=== PATIENT | female | born 1970 | race Caucasian/White ===

== ENCOUNTER 2021-09-23 13:57 | Outpatient (REF) | payer OTHER, SELFPAY ==
--- NOTE | ~2021-09-23 | XR_ITS ---
EXAMINATION: XR CHEST CLINICAL INFORMATION: SOB. History of Covid. COMPARISON: None TECHNIQUE: 2 views of the chest were obtained. FINDINGS: No significant abnormality is noted involving the heart, lungs, mediastinum, bony thorax or soft tissues. XR/XR chest 2V IMPRESSION: Unremarkable chest examination.
[2021-09-23 14:43] LABS: MANUAL DIFF FLAG NO
[2021-09-23 15:07] LABS: Basophils Absolute Auto 0.1 X10*3/uL (0.0-0.2); Basophils Percent Auto 0.7 % (0-2); Eosinophils Absolute Auto 0.2 X10*3/uL (0.0-0.4); Eosinophils Percent Auto 3.3 % (0-4); Imm Gran Abs Auto 0.01 X10*3/uL (0.00-0.03); Imm Gran Pct Auto 0.1 % (0.0-0.4); Lymphocytes Absolute Auto 1.3 X10*3/uL (1.2-4.9); Lymphocytes Percent Auto 19.1 % (20-40); Mean Corpuscular HGB Conc 33.3 g/dl (31.0-35.0); Mean Corpuscular Hemoglobin 29.2 pg (27.0-33.0); Mean Corpuscular Volume 87.7 fL (80.0-98.0); Mean Platelet Volume 10.2 fL (9.4-12.3); Monocytes Absolute Auto 0.4 X10*3/uL (0.1-1.2); Monocytes Percent Auto 5.4 % (2-11); Neutrophils Absolute Auto 4.9 x10*3/uL (2.0-8.3); Neutrophils Percent Auto 71.4 % (45-73); Platelet Count 372 X10*3/uL (160-400); Red Blood Count 4.79 X10*6/uL (4.20-5.50); Red Cell Distribution Width 13.2 % (11.0-16.0); White Blood Count 6.9 X10*3/uL (4.8-10.8)
[2021-09-23 15:22] LABS: D Dimer High Sensitivity 230 NG/ML
[2021-09-23 15:34] LABS: Alanine Aminotransferase 70 U/L (0-31); Albumin Level 4.9 g/dL (3.5-5.0); Alkaline Phosphatase 133 U/L (39-117); Anion Gap 14 (12-20); Aspartate Amino Transferase 49 U/L (5-31); Bilirubin Total 0.4 mg/dL (0.0-1.0); Blood Urea Nitrogen 11 mg/dL (9-16); C Reactive Protein 0.91 mg/dL (< or = 0.50); Calcium 10.1 mg/dL (8.4-10.2); Carbon Dioxide 26 mmol/L (22-29); Chloride 104 mmol/L (96-108); Cholesterol 300 mg/dL; Estimated Glomerular Filt Rate > 60; Glucose Random 98 mg/dL (60-115); Iron 68 mcg/dL (30-160); Percent Iron Saturation 15 % (15-50); Potassium 4.8 mmol/L (3.3-5.1); Sodium 139 mmol/L (135-145); Total Iron Binding Capacity 451 mcg/dL (228-428); Total Protein 8.2 g/dL (6.5-8.0); Unsaturated Iron Binding 383 ug/dL
[2021-09-23 15:41] LABS: B Type Natriuretic Peptide < 10 pg/mL (<100)
[2021-09-23 15:58] LABS: Free T4 (Free Thyroxine) 0.78 ng/dL (0.71-1.85); Thyroid Stimulating Hormone 1.84 uIU/mL (0.32-4.0)
== END 2021-09-23 13:58 | disposition home or self-care (01) ==
LOC: HO.XRAY 13:57
PROVIDERS: PCP Internal Medicine; Visit Provider Internal Medicine
DX: E03.9 Hypothyroidism, unspecified (principal); D64.9 Anemia, unspecified; R06.02 Shortness of breath; Z86.16 Personal history of COVID-19
CPT/HCPCS: 36415; 71046; 80053; 82465; 83540; 83880; 84439; 84443; 85025; 85379; 86140

== ENCOUNTER 2022-09-28 11:54 | Outpatient (REF) | payer OTHER, SELFPAY ==
[2022-09-28 14:41] LABS: MANUAL DIFF FLAG NO
[2022-09-28 14:55] LABS: Basophils Absolute Auto 0.1 X10*3/uL (0.0-0.2); Basophils Percent Auto 0.7 % (0-2); Eosinophils Absolute Auto 0.2 X10*3/uL (0.0-0.4); Eosinophils Percent Auto 2.1 % (0-4); Hematocrit 42.8 % (37.0-47.0); Hemoglobin 14.3 g/dl (12.0-16.0); Imm Gran Abs Auto 0.02 X10*3/uL (0.00-0.03); Imm Gran Pct Auto 0.3 % (0.0-0.4); Lymphocytes Absolute Auto 1.2 X10*3/uL (1.2-4.9); Lymphocytes Percent Auto 16.9 % (20-40); Mean Corpuscular HGB Conc 33.4 g/dl (31.0-35.0); Mean Corpuscular Hemoglobin 29.1 pg (27.0-33.0); Mean Corpuscular Volume 87.2 fL (80.0-98.0); Mean Platelet Volume 10.3 fL (9.4-12.3); Monocytes Absolute Auto 0.5 X10*3/uL (0.1-1.2); Monocytes Percent Auto 6.5 % (2-11); Neutrophils Absolute Auto 5.2 x10*3/uL (2.0-8.3); Neutrophils Percent Auto 73.5 % (45-73); Platelet Count 334 X10*3/uL (160-400); Red Blood Count 4.91 X10*6/uL (4.20-5.50); Red Cell Distribution Width 13.2 % (11.0-16.0); White Blood Count 7.1 X10*3/uL (4.8-10.8)
[2022-09-28 15:16] LABS: Alanine Aminotransferase 44 U/L (0-31); Albumin Level 4.3 g/dL (3.5-5.0); Alkaline Phosphatase 116 U/L (39-117); Anion Gap 13 (12-20); Aspartate Amino Transferase 30 U/L (5-31); Bilirubin Total 0.4 mg/dL (0.0-1.0); Blood Urea Nitrogen 10 mg/dL (9-16); C Reactive Protein 0.64 mg/dL (< or = 0.50); Calcium 9.5 mg/dL (8.4-10.2); Carbon Dioxide 26 mmol/L (22-29); Chloride 107 mmol/L (96-108); Estimated Glomerular Filt Rate > 60; Glucose Random 78 mg/dL (60-115); Potassium 4.8 mmol/L (3.3-5.1); Sodium 141 mmol/L (135-145); Total Protein 7.1 g/dL (6.5-8.0)
[2022-09-28 15:32] LABS: Free T4 (Free Thyroxine) 0.93 ng/dL (0.71-1.85); Thyroid Stimulating Hormone 2.21 uIU/mL (0.32-4.0); Vitamin B12 642 pg/mL (200-900)
== END 2022-09-28 11:55 | disposition home or self-care (01) ==
LOC: HO.10HDL 11:54
PROVIDERS: Visit Provider Internal Medicine
DX: E03.9 Hypothyroidism, unspecified (principal); R20.2 Paresthesia of skin
CPT/HCPCS: 36415; 80053; 82550; 82607; 84439; 84443; 85025; 86140

== ENCOUNTER 2022-10-04 16:35 | Outpatient (REF) | payer OTHER, SELFPAY ==
--- NOTE | ~2022-10-04 | MR_ITS ---
EXAMINATION: MR BRAIN WITHOUT AND WITH CONTRAST CLINICAL INFORMATION: Paresthesias COMPARISON: MRI of the brain without contrast 01/23/2019 TECHNIQUE: Multiplanar multisequence MR imaging of the brain was obtained without and following the administration of 10 mL Gadavist intravenous contrast. FINDINGS: There is no acute infarct on diffusion-weighted imaging. There is no intracranial hemorrhage on iron-sensitive imaging. No extra-axial collection or mass effect/herniation. Normal parenchymal signal characteristics. No hydrocephalus. The ventricles are normal in morphology and size. No abnormal parenchymal or extra-axial enhancement. The major flow voids at the skull base are preserved. Incidentally noted persistent right trigeminal artery. The midline structures are normal. The cerebellar tonsils are normally positioned. The craniocervical junction is normal. Marrow signal is within normal limits. The visualized soft tissues are without significant abnormality. No signal abnormality within the paranasal sinuses or within the mastoid air cells. Small fluid in the pneumatized petrous apices. MR/MR head/brain wo/w con IMPRESSION: Unremarkable contrast enhanced MRI of the brain. .
== END 2022-10-04 16:36 | disposition home or self-care (01) ==
LOC: HO.MRI 16:35
PROVIDERS: PCP Internal Medicine; Visit Provider Internal Medicine
DX: R20.2 Paresthesia of skin (principal); R90.0 Intracranial space-occupying lesion found on diagnostic imaging of central nervous system
CPT/HCPCS: 70553; A9585

== ENCOUNTER 2023-03-01 11:02 | Outpatient (REF) | payer OTHER, SELFPAY ==
[2023-03-01 14:06] LABS: Free T4 (Free Thyroxine) 0.71 ng/dL (0.71-1.85); Thyroid Stimulating Hormone 3.35 uIU/mL (0.32-4.0)
== END 2023-03-01 11:03 | disposition home or self-care (01) ==
LOC: HO.10HDL 11:02
PROVIDERS: Visit Provider Internal Medicine
DX: E03.9 Hypothyroidism, unspecified (principal)
CPT/HCPCS: 36415; 84439; 84443

== ENCOUNTER 2023-03-08 23:06 | Emergency (ER) | payer OTHER, SELFPAY ==
--- NOTE | 2023-03-08 | ECG_ITS ---
Test Reason : Chest pain Blood Pressure : / mmHG Vent. Rate : 091 BPM Atrial Rate : 091 BPM P-R Int : 150 ms QRS Dur : 080 ms QT Int : 372 ms P-R-T Axes : 055 040 060 degrees QTc Int : 457 ms Normal sinus rhythm Normal ECG When compared with ECG of 23-JAN-2019 13:57, No significant change was found Referred By: Generic ED Physician Electronically Signed By:LEATHA REYNOLDS
--- NOTE | ~2023-03-08 | XR_ITS ---
EXAMINATION: XR CHEST CLINICAL INFORMATION: Chest pain. COMPARISON: Chest radiograph 09/23/2021. TECHNIQUE: Frontal view of the chest was obtained. FINDINGS: Stable appearance of the cardiomediastinal silhouette. No focal airspace opacity, pleural effusion or pneumothorax. No acute osseous findings. The visualized upper abdomen is within normal limits. XR/XR chest 1V IMPRESSION: No acute cardiopulmonary findings.
[2023-03-08 23:17] VITALS: BP 201/95; PULSE 96; RESP 18; TEMP 36.8; O2SAT 97; BMI 32.7
[2023-03-08 23:44] LABS: MANUAL DIFF FLAG NO
[2023-03-08 23:45] LABS: Basophils Percent Auto 0.5 % (0-2); Eosinophils Absolute Auto 0.3 X10*3/uL (0.0-0.4); Eosinophils Percent Auto 3.1 % (0-4); Hemoglobin 13.5 g/dl (12.0-16.0); Imm Gran Abs Auto 0.03 X10*3/uL (0.00-0.03); Imm Gran Pct Auto 0.4 % (0.0-0.4); Lymphocytes Percent Auto 23.5 % (20-40); Mean Corpuscular HGB Conc 33.8 g/dl (31.0-35.0); Mean Corpuscular Hemoglobin 28.9 pg (27.0-33.0); Mean Corpuscular Volume 85.7 fL (80.0-98.0); Mean Platelet Volume 9.9 fL (9.4-12.3); Monocytes Absolute Auto 0.5 X10*3/uL (0.1-1.2); Monocytes Percent Auto 5.9 % (2-11); Neutrophils Absolute Auto 5.5 x10*3/uL (2.0-8.3); Neutrophils Percent Auto 66.6 % (45-73); Platelet Count 308 X10*3/uL (160-400); Red Blood Count 4.67 X10*6/uL (4.20-5.50); Red Cell Distribution Width 13.4 % (11.0-16.0); White Blood Count 8.3 X10*3/uL (4.8-10.8)
[2023-03-08 23:57] VITALS: BP 170/90; PULSE 97; RESP 17; TEMP 36.8; O2SAT 96
[2023-03-08 23:59] LABS: Alanine Aminotransferase 49 U/L (0-31); Albumin Level 4.3 g/dL (3.5-5.0); Alkaline Phosphatase 124 U/L (39-117); Anion Gap 16 (12-20); Aspartate Amino Transferase 32 U/L (5-31); Bilirubin Total 0.3 mg/dL (0.0-1.0); Blood Urea Nitrogen 14 mg/dL (9-16); Calcium 10.1 mg/dL (8.4-10.2); Carbon Dioxide 20 mmol/L (22-29); Chloride 107 mmol/L (96-108); Creatinine Clr Calc Pharmacy 112.8; Estimated Glomerular Filt Rate > 60; Glucose Random 112 mg/dL (60-115); Potassium 3.9 mmol/L (3.3-5.1); Sodium 139 mmol/L (135-145); Total Protein 7.8 g/dL (6.5-8.0)
[2023-03-09 00:06] LABS: Troponin-I High Sensitivity < 2.7 ng/L (<3.5-17.0)
--- NOTE | 2023-03-09 01:14 | ED_ITS ---
HPI - Chest Pain General Chief Complaint: Chest Pain Stated Complaint: feels tightness in lungs, pain when breathing? Time Seen by Provider: 03/09/23 01:08 Source: patient Mode of arrival: ambulatory Limitations: no limitations History of Present Illness HPI narrative: Patient 52 years old with history of hypothyroidism and anxiety depression comes here for chest tightness feeling for last few months getting worse for last 2 days worse with exertion feels less elbow in her lungs today she was nauseated too, does have occasional cough , no shortness of breath no diaphoresis or nausea no vomiting Related Data Allergies Allergy/AdvReac Type Severity Reaction Status Date / Time No Known Allergies Allergy Unverified 04/23/20 16:34 [No Known Allergies*] Review of Systems Review of Systems: Yes all other systems are reviewed and are negative COUNTS INCLUDE 234 BEDS AT THE [facility] Past Medical History Attestation statement: The following information was validated with the patient. Social History Social History Alcohol intake: never Smoked in Last 30 Days: No Use of substances other than those prescribed or required for medical reasons: No Advance Directives: No Advance Directives Information Provided: No Physical Exam Vital Signs: Vital Signs: Last Vital Signs Temp 97.9 F 03/09/23 02:01 Pulse 74 03/09/23 02:01 Resp 17 03/09/23 02:01 BP 127/75 03/09/23 02:01 Pulse Ox 96 03/09/23 02:01 O2 Del Method Room Air 03/09/23 02:01 BMI result Body Mass Index 32.7 Appearance: Alert. Oriented X3. No acute distress. Eyes: PERRLA, No Nystagmus ENT: Pharynx normal. Oral Mucosa moist Neck: Normal inspection. Neck supple. CVS: Normal heart rate and rhythm. Pulses normal. Respiratory: No respiratory distress. Equal air entry bilateral, no wheezing/rales/rhonchi Abdomen: Soft and nontender. Bowel sounds are present, no mass palpable, no CVA tenderness Skin: Skin warm and dry. Normal skin color. Normal skin turgor. Extremities: No lower extremity edema. No calf tenderness Neuro: Oriented X 3. No motor deficit. No sensory deficit.No cerebellar signs , cranial nerves II-XII intact Medications Administered Discontinued Medications Generic Name Dose Route Start Last Admin Trade Name Freq PRN Reason Stop Dose Admin Aspirin 162 mg 03/09/23 01:28 03/09/23 02:06 Aspirin 81 Mg Tab.Chew PO 03/09/23 01:29 162 mg ONCE ONE Administration Medical Decision Making Medical Decision Making [facility] Narrative: Patient with atypical chest pain initial troponin EKG negative for acute will repeat troponin check D-dimer also Patient D-dimer and 2 sets of high sensitive troponin negative will discharge patient home advised to follow with material control manager for further evaluation including stress test Differential Diagnosis Differential Diagnoses: The differential diagnosis associated with the presentation includes ACS/unstable angina/PE Lab Data [facility] Lab Attestation statement: I reviewed the patient's lab results. 03/08/23 23:39 03/08/23 23:39 Labs: Lab Results 03/08/23 03/08/23 03/08/23 Range/Units 23:39 23:39 23:39 WBC 8.3 (4.8-10.8) X10*3/uL RBC 4.67 (4.20-5.50) X10*6/uL Hgb 13.5 (12.0-16.0) g/dl Hct 40.0 (37.0-47.0) % MCV 85.7 (80.0-98.0) fL MCH 28.9 (27.0-33.0) pg MCHC 33.8 (31.0-35.0) g/dl RDW 13.4 (11.0-16.0) % Plt Count 308 (160-400) X10*3/uL MPV 9.9 (9.4-12.3) fL Immature Gran % (Auto) 0.4 (0.0-0.4) % Neut % (Auto) 66.6 (45-73) % Lymph % (Auto) 23.5 (20-40) % Coffee % (Auto) 5.9 (2-11) % Eos % (Auto) 3.1 (0-4) % Baso % (Auto) 0.5 (0-2) % Lymph # (Auto) 2.0 (1.2-4.9) X10*3/uL Coffee # (Auto) 0.5 (0.1-1.2) X10*3/uL Eos # (Auto) 0.3 (0.0-0.4) X10*3/uL Baso # (Auto) 0.0 (0.0-0.2) X10*3/uL Abs Immat Gran (auto) 0.03 (0.00-0.03) X10*3/uL Absolute Neuts (auto) 5.5 (2.0-8.3) x10*3/uL Absolute Nucleated RBC 0.000 (0.0-0.012) X10*3/uL Nucleated RBC % (auto) 0.0 (0.0-0.2) /100WBC D-Dimer High Sensitivty NG/ML Sodium 139 (135-145) mmol/L Potassium 3.9 (3.3-5.1) mmol/L Chloride 107 (96-108) mmol/L Carbon Dioxide 20 L (22-29) mmol/L Anion Gap 16 (12-20) BUN 14 (9-16) mg/dL Creatinine 0.75 (0.5-1.4) mg/dL Estim Creat Clear Calc 112.8 Estimated GFR > 60 Random Glucose 112 (60-115) mg/dL Calcium 10.1 D (8.4-10.2) mg/dL Total Bilirubin 0.3 (0.0-1.0) mg/dL AST 32 H (5-31) U/L ALT 49 H (0-31) U/L Alkaline Phosphatase 124 H (39-117) U/L Troponin I High Sens < 2.7 (<3.5-17.0) ng/L Total Protein 7.8 (6.5-8.0) g/dL Albumin 4.3 (3.5-5.0) g/dL 03/09/23 03/09/23 Range/Units 01:49 01:49 WBC (4.8-10.8) X10*3/uL RBC (4.20-5.50) X10*6/uL Hgb (12.0-16.0) g/dl Hct (37.0-47.0) % MCV (80.0-98.0) fL MCH (27.0-33.0) pg MCHC (31.0-35.0) g/dl RDW (11.0-16.0) % Plt Count (160-400) X10*3/uL MPV (9.4-12.3) fL Immature Gran % (Auto) (0.0-0.4) % Neut % (Auto) (45-73) % Lymph % (Auto) (20-40) % Coffee % (Auto) (2-11) % Eos % (Auto) (0-4) % Baso % (Auto) (0-2) % Lymph # (Auto) (1.2-4.9) X10*3/uL Coffee # (Auto) (0.1-1.2) X10*3/uL Eos # (Auto) (0.0-0.4) X10*3/uL Baso # (Auto) (0.0-0.2) X10*3/uL Abs Immat Gran (auto) (0.00-0.03) X10*3/uL Absolute Neuts (auto) (2.0-8.3) x10*3/uL Absolute Nucleated RBC (0.0-0.012) X10*3/uL Nucleated RBC % (auto) (0.0-0.2) /100WBC D-Dimer High Sensitivty 178 NG/ML Sodium (135-145) mmol/L Potassium (3.3-5.1) mmol/L Chloride (96-108) mmol/L Carbon Dioxide (22-29) mmol/L Anion Gap (12-20) BUN (9-16) mg/dL Creatinine (0.5-1.4) mg/dL Estim Creat Clear Calc Estimated GFR Random Glucose (60-115) mg/dL Calcium (8.4-10.2) mg/dL Total Bilirubin (0.0-1.0) mg/dL AST (5-31) U/L ALT (0-31) U/L Alkaline Phosphatase (39-117) U/L Troponin I High Sens < 2.7 (<3.5-17.0) ng/L Total Protein (6.5-8.0) g/dL Albumin (3.5-5.0) g/dL Discharge Plan Discharge Clinical Impression: Chest pain Patient Disposition: Home, Self-Care Instructions: Chest Pain (ED) Additional Instructions: Cause of chest pain is not very clear your workup for the acute coronary syndrome is negative Follow-up with material control manager/PCP for further evaluation including stress test Take baby aspirin daily Report to the ER if worsening of the chest pain or change in character of the chest Referrals: Shashank Mary MD [Physician] - 1 week
[2023-03-09 02:01] VITALS: BP 127/75; PULSE 74; RESP 17; TEMP 36.6; O2SAT 96
[2023-03-09 02:01] LABS: D Dimer High Sensitivity 178 NG/ML
[2023-03-09] MEDS: Aspirin 81 MG TAB.CHEW 162 MG PO (02:06)
[2023-03-09 02:19] LABS: Troponin-I High Sensitivity < 2.7 ng/L (<3.5-17.0)
== END 2023-03-09 03:12 | disposition home or self-care (01) ==
PROVIDERS: Emergency Provider Internal Medicine; PCP Internal Medicine
DX: R07.89 Other chest pain (principal); F41.1 Generalized anxiety disorder; F43.0 Acute stress reaction; F33.1 Major depressive disorder, recurrent, moderate; Z79.899 Other long term (current) drug therapy
CPT/HCPCS: 36415; 71045; 80053; 84484; 85025; 85379; 93005; 99283; 99285

== ENCOUNTER → 2023-03-08 23:30 | Outpatient (BNV) | payer OTHER, SELFPAY | PROVIDERS: Emergency Provider Internal Medicine; PCP Internal Medicine; Visit Provider Internal Medicine | DX: R07.9 Chest pain, unspecified (principal) | CPT/HCPCS: 93010 ==

== ENCOUNTER → 2023-04-03 07:56 | Outpatient (REF) | payer OTHER, SELFPAY ==
--- NOTE | 2023-04-03 | CA_ITS ---
Acquisition Time: 2023-04-03 08:03:47 Total Exercise Time: 00:07:00 Test Indications: CHEST PAIN Medications: LEVOTHYROXINE FLUOXETINE Protocol: CANDACE Max HR: 160 BPM 95% of Pred: 167 BPM Max BP: 180/084 mmHG Max Work Load: 7.0 METS PT EXERCISED ON STD CANDACE PROTOCOLFOR 7 MIN THRU STAGE 2. MAX HR 160-95%MAX. PT HAD 2/10 CHEST DISCOMFORT AT START THAT WENT TO 5/10 AT [facility] EXERCISE. 2MM ST DEP IN II,III,F,V3-6. POSITIVE TEST SUSPICIOUS FOR ISCHEMIA. AWAIT SCAN REPORT. PLAN ON REFERRAL TO CARDIOLOGY. Referred By: Seymour Torre Overread By: PITA TORRE MD
--- NOTE | ~2023-04-03 | NM_ITS ---
EXERCISE MYOCARDIAL PERFUSION STUDY INDICATION: Chest pain TECHNIQUE: The patient was brought in for an exercise perfusion study on 04/03/2023. Patient performed exercise as per Evaristo protocol and was injected 30 mCi of sestamibi once target heart rate was achieved. Images were obtained using the SPECT gamma camera interlaced with the gating device. Images were obtained in supine position. Resting study not performed. Images were processed with the software and reviewed. FINDINGS: Raw images were reviewed. The stress perfusion study showed markedly diminished tracer uptake in the mid to distal anterior wall and adjacent apex. With CT attenuation correction no major change. The gated study shows low normal LV systolic function with calculated LVEF of 54%. LV cavity is normal in size. The gated study shows diminished contractility in the mid to distal anterior wall. Resting study not performed. The findings are consistent with severe perfusion defect in the mid to distal anterior wall and adjacent apex. NM/NM chinmay perf SPECT rest or str IMPRESSION: 1. Myocardial perfusion imaging study shows severe perfusion defect in the mid to distal anterior wall, adjacent apex. Cannot differentiate ischemia or infarction as resting not performed. 2. Gated LVEF is 54% during stress. EKG component of the test reported separately.
== END ==
LOC: HO.CARD 07:56
PROVIDERS: PCP Internal Medicine; Visit Provider Internal Medicine
DX: R07.9 Chest pain, unspecified (principal)
CPT/HCPCS: 78451; 93017; A9500

== ENCOUNTER 2023-04-05 12:47 | Outpatient (AMB) | payer OTHER, SELFPAY ==
--- NOTE | 2023-04-05 12:57 | MHC.OFFVIS ---
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 She is a 52-year-old female who recently presently emergency room after she does significant chest discomfort/pressure/tightness after walking at work. She was then evaluated emergency room. EKG at that time was normal and she will troponins were negative. Patient subsequently discharged and was followed up with you. Patient subsequently had a stress test 2 days ago which was abnormal with positive stress test with worsening chest pressure with exercise with [address]-depression in the 2nd stage of Evaristo protocol. Patient nuclear imaging but the results are still pending. Patient continues to have exertional chest discomfort with minimal exertion although also says she has mild chest pressure all the time. She is concerned about the symptoms as she has significant strong family history for premature coronary artery disease with her great grandmother dying of heart related issues in 30s and her father having CO at age 47. She denies any other significant symptoms. No nausea, vomiting, heart failure symptoms. No lightheadedness, syncope. PFSH Surgical History Hx of hysterectomy for benign disease Family History Father CAD (coronary artery disease) Mother Mitral valve prolapse Social History Alcohol intake: never Patient Tobacco Use Status: Never used Tobacco Review of Systems Const Denies chills, Denies daytime sleepiness, Denies fatigue, Denies fever(s), Denies frequent falls, Denies poor appetite, Denies snoring, Denies stops breathing during sleep, Denies weakness, Denies weight gain and Denies weight loss Eyes Denies loss of vision ENT Denies dizziness and Denies hearing loss Card Denies chest pain, Denies claudication, Denies leg edema, Denies lightheadedness, Denies palpitations, Denies dyspnea, Denies dyspnea on exertion and Denies orthopnea Resp Denies cough, Denies excessive phlegm production, Denies dyspnea, Denies dyspnea on exertion, Denies snoring and Denies wheezing GI Denies abdominal pain, Denies hematochezia, Denies change in bowel habits, Denies nausea and Denies vomiting Denies urinary frequency and Denies dysuria Musc Denies arthralgias, Denies muscle weakness, Denies numbness and Denies other (frequent falls) Skin/Breast Denies nail changes and Denies rash Neuro Denies Abnormal speech present, Denies dizziness, Denies frequent falls, Denies loss of vision, Denies memory loss, Denies numbness and Denies weakness Psych Denies depression and Denies memory loss Endo Denies fatigue and Denies palpitations Gerald/Lymph Reports easy bruising and Reports other (anemia) Aller/Immun Denies wheezing Physical Exam Vital Signs: Last Vital Signs Pulse 84 04/05/23 12:58 BP 110/74 04/05/23 12:58 BMI result Body Mass Index 31.9 Const General: cooperative, comfortable, no acute distress, well developed, alert, awake, Physically active and well groomed Nutritional Appearance: well nourished and obese Orientation/consciousness: patient oriented x3 Limitations: no limitations HEENT Head: Yes normocephalic and Yes atraumatic Neck Neck: Yes trachea midline, Yes supple and Yes no JVD Resp Effort & Inspection: normal respiratory effort Auscultation: clear to auscultation bilaterally Cardio Jugular venous distension: no JVD Palpation: normal PMI Rate: regular rate Rhythm: regular rhythm Heart sounds: S1 normal heart sound present, S2 normal heart sound present, no click, no gallops, no murmurs and no rubs GI Auscultation: normal bowel sounds Skin General skin exam: no rashes or lesions noted Neuro General: patient oriented x3 and no focal motor deficits Speech: No Abnormal speech present Extrem General: Yes no clubbing, cyanosis or edema Psych Appearance: grossly normal Assessment & Plan Assessment & Plan (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 High likelihood of underlying subacute plaque transformation and progressive coronary artery disease. His highly suggestive of obstructive coronary artery disease. Given her symptoms and persistent symptoms will start on medical therapy and schedule for cardiac catheterization. Will start on metoprolol 25 mg daily to reduce myocardial oxygen demand and add isosorbide to improve myocardial blood flow. Also advised low-dose aspirin. As well as high-intensity statin therapy. Pathophysiology of coronary artery disease was discussed with her. Need for cardiac catheterization was discussed in details. Risks, benefits, alternatives to cardiac catheterization were discussed. She understands agrees. Will obtain echocardiogram to assess LV systolic and diastolic function. She revised to avoid strenuous exertion. She revised to seek emergency care if she has significant chest pressure on relieved by nitroglycerin. Will follow up in the clinic after cardiac catheterization. Thank you for allowing me to partake in her care Orders: Orders CA echo transthoracic complete Today I20.0 - Unstable angina Cardiac Cath LT w PCI 1 Week I20.0 - Unstable angina Basic Metabolic Panel Today I20.0 - Unstable angina Prothrombin Time INR Today I20.0 - Unstable angina Complete Blood Count no Diff Today I20.0 - Unstable angina Medications: New metoprolol succinate ER (Toprol XL) 25 mg PO DAILY 30 tabs 2RF I20.0 - Unstable angina isosorbide mononitrate ER 30 mg PO DAILY 30 tabs 2RF I20.0 - Unstable angina atorvastatin 40 mg PO DAILY 30 tabs 2RF I20.0 - Unstable angina nitroglycerin do not exceed 3 doses per episode 0.4 mg sublingual Q5M PRN 20 tabs 1RF chest pain I20.0 - Unstable angina aspirin (Ecotrin Low Strength) 81 mg PO DAILY 60 tabs 1RF I20.0 - Unstable angina Coding Level of Care Code New Pt Level 4 (65563) Diagnoses Crescendo angina I20.0
[2023-04-05 12:58] VITALS: BP 110/74; PULSE 84; BMI 31.9
== END 2023-04-05 13:31 | disposition home or self-care (01) ==
PROVIDERS: PCP Internal Medicine; Visit Provider Internal Medicine Cardiovascular Disease
DX: I20.0 Unstable angina (principal)
CPT/HCPCS: 99204

== ENCOUNTER 2023-04-05 12:47 | Outpatient (REF) | payer OTHER, SELFPAY ==
[2023-04-05 14:27] LABS: Hematocrit 42.1 % (37.0-47.0); Hemoglobin 14.1 g/dl (12.0-16.0); Mean Corpuscular HGB Conc 33.5 g/dl (31.0-35.0); Mean Corpuscular Hemoglobin 28.8 pg (27.0-33.0); Mean Corpuscular Volume 85.9 fL (80.0-98.0); Mean Platelet Volume 10.3 fL (9.4-12.3); Platelet Count 326 X10*3/uL (160-400); Red Cell Distribution Width 13.6 % (11.0-16.0); White Blood Count 7.1 X10*3/uL (4.8-10.8)
[2023-04-05 14:31] LABS: INTERNATIONAL NORM RATIO 0.9 (0.9-1.1); Prothrombin Time 11.2 SEC (11.1-13.3)
[2023-04-05 15:16] LABS: Anion Gap 13 (12-20); Blood Urea Nitrogen 10 mg/dL (9-16); Calcium 10.1 mg/dL (8.4-10.2); Carbon Dioxide 23 mmol/L (22-29); Chloride 107 mmol/L (96-108); Estimated Glomerular Filt Rate > 60; Glucose Random 88 mg/dL (60-115); Sodium 139 mmol/L (135-145)
== END 2023-04-05 12:48 | disposition home or self-care (01) ==
LOC: HO.LAB 12:47
PROVIDERS: PCP Internal Medicine; Visit Provider Internal Medicine Cardiovascular Disease
DX: I20.0 Unstable angina (principal)
CPT/HCPCS: 36415; 80048; 85027; 85610

== ENCOUNTER → 2023-04-07 23:59 | Outpatient (BNV) | payer OTHER, SELFPAY | PROVIDERS: PCP Internal Medicine; Visit Provider Internal Medicine Cardiovascular Disease | DX: I20.0 Unstable angina (principal); R93.1 Abnormal findings on diagnostic imaging of heart and coronary circulation | CPT/HCPCS: 92928; 93458; 99152 ==

== ENCOUNTER 2023-04-20 15:05 | Outpatient (AMB) | payer OTHER, SELFPAY ==
[2023-04-20 15:17] VITALS: BP 132/90; PULSE 105; BMI 31.8
--- NOTE | 2023-04-20 15:17 | A.OFFVIS_ITS ---
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: No Allergies No Known Allergies [No Known Allergies*] Allergy (Verified 04/20/23 15:21) Medication List - Last Reconciled 04/20/23 by VALDO Roa aspirin (Ecotrin Low Strength) 81 mg PO DAILY atorvastatin 40 mg PO DAILY fluoxetine 40 mg PO DAILY isosorbide mononitrate ER 30 mg PO DAILY levothyroxine 75 mcg PO DAILY metoprolol tartrate 25 mg PO BID nitroglycerin 0.4 mg sublingual Q5M PRN HPI Follow up post cardiac cath HPI Details Brandy is a 52-year-old female with past medical history of obesity, family history of early CAD who recently reported angina, had abnormal stress test and then underwent cardiac catheterization with stent placement. She now presents for follow-up. Today she reports that prior to her stent she was getting much discomfort in her anterior chest especially with physical activity. She says that symptom has greatly improved however there is some discomfort still present. It is similar in quality however not as severe. She has no new symptoms including shortness of breath, palpitations, presyncope, syncope, falls, PND, orthopnea or edema. She has been taking her meds as directed however never received the metoprolol prescription. is present. [facility] Surgical History Hx of hysterectomy for benign disease Family History Father CAD (coronary artery disease) Mother Mitral valve prolapse Social History Alcohol intake: never Patient Tobacco Use Status: Never used Tobacco Review of Systems Const All systems reviewed & are unremarkable except as noted in HPI and below ENT Denies dizziness Card Denies chest pain, Denies chest pain at rest, Denies chest pain with activity, Denies rapid heart rate, Denies pedal edema, Denies edema, Denies leg edema, Denies lightheadedness, Denies palpitations, Denies dyspnea, Denies dyspnea on exertion and Denies orthopnea Resp Denies cough, Denies dyspnea and Denies dyspnea on exertion GI Denies hematochezia and Denies change in stool character Musc Denies abnormal gait, Denies limited range of motion, Denies muscle cramps, Denies muscle weakness, Denies numbness, Denies radiating pain into limb, Denies stiffness and Denies tingling Neuro Denies abnormal gait, Denies dizziness, Denies numbness and Denies tingling Endo Denies palpitations Physical Exam Vital Signs: Last Vital Signs Pulse 105 H 04/20/23 15:17 BP 132/90 H 04/20/23 15:17 BMI result Body Mass Index 31.8 Const General: cooperative, healthy appearing, comfortable and no acute distress Orientation/consciousness: patient oriented x3 HEENT Head: Yes normal to inspection Neck Neck: Yes normal visual inspection and Yes no JVD Carotids: normal carotid upstroke Chest Chest palpation & inspection: normal inspection of the chest Resp Effort & Inspection: normal respiratory effort Auscultation: clear to auscultation bilaterally, no crackles, no rales, no rhonchi and no wheezes Cardio Jugular venous distension: no JVD Rate: regular rate Rhythm: regular rhythm Heart sounds: S1 normal heart sound present, S2 normal heart sound present, no gallops, no murmurs and no rubs Peripheral pulses: Peripheral pulses 2+ throughout Skin General skin exam: no rashes or lesions noted Neuro General: patient oriented x3 Extrem Other: right radial cath site well healed General: Yes normal to inspection, No no pedal edema and No calf tenderness Psych Appearance: grossly normal Mental Status: mental status grossly normal Speech and movement: Normal speech and movement present Office Procedures EKG Details: Today, read by me, sinus tachycardia, rate 105, no acute ST or T-wave abnormalities, QTC 465 milliseconds [id number], Complete Assessment & Plan Assessment & Plan (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 She had had a nuclear stress test on 04/06/2023 which was positive for chest discomfort, EKG changes and severe defect in the mid distal anterior wall and adjacent apex. She underwent a cardiac catheterization on 04/07/2023 showing mid LAD 99% stenosis, diagonal 70% stenosis, left circumflex normal, mid RCA 40% stenosis, proximal RCA 60% stenosis. PCI was done to the mid LAD. At this point she reports much improvement in her symptoms however does still have some mild discomfort in her mid chest with activity. Med list reviewed and she is not on metoprolol as initially ordered. She said she never received it from the pharmacy. Her EKG done today is showing sinus tach, rate 105, no acute ST or T- wave abnormalities. Will have her start on metoprolol tartrate 25 mg b.i.d.. Continue isosorbide 30 mg daily. Continue aspirin indefinitely. Continue Brilinta 90 mg b.i.d. uninterrupted for at least 1 year. Continue atorvastatin with ideal LDL goal less than 70. Will check echocardiogram to assess EF and wall motion. Will plan to call her in 4 days to reassess symptoms. If she continues to have exertional symptoms then will discuss with her primary drum stenciler as she may need PCI to the diagonal branch. All the above reviewed with her and she states understanding. Instructed on light physical activity at this time. Cardiac rehab has been previously ordered however she has not started as of yet. Since she is still having some symptoms will have her hold off until we further discuss next week. Emergency care if needed for symptoms not relieved by rest. Cardiology office visit in 3 weeks, sooner if needed (2) Coronary artery disease: Code(s): I25.10 - Atherosclerotic heart disease of [place] coronary artery without angina pectoris Qualifiers: Coronary Disease-Associated Artery/Lesion type: [place] artery [place] v s. transplanted heart: [place] heart Associated angina: with stable angina Qualified Code(s): I25.118 - Atherosclerotic heart disease of [place] coronary artery with other forms of angina pectoris (3) S/P cardiac cath: Comment: 04/07/2023, mid LAD 99% stenosis, diagonal 70% stenosis, left circumflex normal, mid RCA 40% stenosis, proximal RCA 60% stenosis, PCI to the mid LAD Code(s): Z98.890 - Other specified postprocedural states Plan: Right radial catheterization site well healed Medications: New metoprolol tartrate 25 mg PO BID 60 tabs 5RF Coding Level of Care Code Est Pt Level 4 (56417) Diagnoses Crescendo angina I20.0 Coronary artery disease of [place] artery of [place] heart with stable angina pectoris I25.118 Coronary Disease-Associated Artery/Lesion type: [place] artery [place] vs. transplanted heart: [place] heart Associated angina: with stable angina S/P cardiac cath Z98.890 CPT Codes EKG - CPT: 30405-[id number], Complete ([id number]) Time Spent (min) 28 Comment
== END 2023-04-20 16:03 | disposition home or self-care (01) ==
PROVIDERS: PCP Internal Medicine; Referring Provider Internal Medicine; Visit Provider Nurse Practitioner Family
DX: R00.0 Tachycardia, unspecified (principal)
CPT/HCPCS: 93010; 99214

== ENCOUNTER → 2023-04-20 15:05 | Outpatient (BNVA) | payer OTHER, SELFPAY | PROVIDERS: PCP Internal Medicine; Referring Provider Internal Medicine; Visit Provider Nurse Practitioner Family | DX: I25.118 Atherosclerotic heart disease of native coronary artery with other forms of angina pectoris (principal); Z79.82 Long term (current) use of aspirin; Z79.899 Other long term (current) drug therapy; Z98.890 Other specified postprocedural states | CPT/HCPCS: 93005 ==

== ENCOUNTER 2023-04-22 15:36 | Observation (INO) | payer OTHER, SELFPAY ==
--- NOTE | ~2023-04-22 | XR_ITS ---
EXAMINATION: CHEST 2 VIEWS CLINICAL INFORMATION: chest pain, SOB. COMPARISON: 03/08/2023. TECHNIQUE: PA and lateral views of the chest obtained. FINDINGS: The lungs are well expanded. No focal infiltrate, effusion, edema, or pneumothorax. Cardiac and mediastinal silhouettes are within normal limits for technique. No acute bony abnormality seen XR/XR chest 2V IMPRESSION: No evidence of acute disease
--- NOTE | 2023-04-22 15:39 | ECG_ITS ---
Test Reason : CHEST PAIN Blood Pressure : / mmHG Vent. Rate : 074 BPM Atrial Rate : 074 BPM P-R Int : 160 ms QRS Dur : 078 ms QT Int : 392 ms P-R-T Axes : 025 042 046 degrees QTc Int : 435 ms Normal sinus rhythm Normal ECG When compared with ECG of 08-MAR-2023 23:30, No significant change was found Referred By: Winter Medina Electronically Signed By:LASHANDA GARCIA
[2023-04-22 16:24] VITALS: BP 133/85; PULSE 67; RESP 16; TEMP 36.4; O2SAT 98; BMI 32.0
--- NOTE | 2023-04-22 16:27 | ED.GENADULT ---
HPI - General Adult General Stated complaint: s/p stent 2 wks ago has chest pressure,sob, Related Data Home Medications Medication Instructions Recorded Confirmed fluoxetine 40 mg capsule 40 mg PO DAILY 04/05/23 04/20/23 levothyroxine 75 mcg tablet 75 mcg PO DAILY 04/05/23 04/20/23 Previous Rx's Medication Instructions Recorded aspirin 81 mg tablet,delayed 81 mg PO DAILY #60 tabs 04/05/23 release (Ecotrin Low Strength) isosorbide mononitrate 30 mg 30 mg PO DAILY #30 tabs 04/05/23 tablet,extended release 24 hr atorvastatin 40 mg tablet 40 mg PO DAILY #90 tabs 04/11/23 nitroglycerin 0.4 mg sublingual 0.4 mg sublingual Q5M PRN chest 04/11/23 tablet pain #25 tabs metoprolol tartrate 25 mg tablet 25 mg PO BID #60 tabs 04/20/23 Allergies Allergy/AdvReac Type Severity Reaction Status Date / Time No Known Allergies Allergy Verified 04/20/23 15:21 [No Known Allergies*] PMFSH Past Medical History Surgical History Hx of hysterectomy for benign disease Family History Family History Father CAD (coronary artery disease) Mother Mitral valve prolapse Social History Social History Alcohol intake: never Patient Tobacco Use Status: Never used Tobacco Course Course Course Narrative: This is an RME: Additional HPI, ROS, PE not included below will be deferred to primary provider. This is a [id number]-female, with a past medical history of obesity and left LAD cardiac stent placement 2 weeks ago, presenting to the emergency department with a complaints of chest pain, lightheadedness, and shortness of breath. Pt states that she has had a stent placed on 04/07/2023 at [facility]. She states that since this, she has had chest pain. Reports the SOB she has had was present prior to stent placement however reports that this has worsened. She was started on metoprolol 25mg BID on , and states that lightheadedness started after starting this medications. She is on Brillinta, baby ASA. Plan: Labs, EKG, CXR Discharge Plan Discharge Prescriptions: No Action atorvastatin 40 mg tablet 40 mg PO DAILY Qty: 90 3RF nitroglycerin 0.4 mg tablet, sublingual 0.4 mg sublingual Q5M PRN (Reason: chest pain) Qty: 25 2RF Rx Instructions: do not exceed 3 doses per episode levothyroxine 75 mcg tablet 75 mcg PO DAILY fluoxetine 40 mg capsule 40 mg PO DAILY isosorbide mononitrate 30 mg tablet extended release 24 hr 30 mg PO DAILY Qty: 30 2RF aspirin [Ecotrin Low Strength] 81 mg tablet,delayed release (DR/EC) 81 mg PO DAILY Qty: 60 1RF metoprolol tartrate 25 mg tablet 25 mg PO BID Qty: 60 5RF
[2023-04-22 17:24] LABS: MANUAL DIFF FLAG NO
[2023-04-22 17:28] LABS: Basophils Absolute Auto 0.1 X10*3/uL (0.0-0.2); Basophils Percent Auto 0.7 % (0-2); Eosinophils Absolute Auto 0.3 X10*3/uL (0.0-0.4); Eosinophils Percent Auto 2.7 % (0-4); Hematocrit 41.1 % (37.0-47.0); Hemoglobin 13.9 g/dl (12.0-16.0); Imm Gran Abs Auto 0.02 X10*3/uL (0.00-0.03); Imm Gran Pct Auto 0.2 % (0.0-0.4); Lymphocytes Absolute Auto 1.6 X10*3/uL (1.2-4.9); Lymphocytes Percent Auto 17.3 % (20-40); Mean Corpuscular HGB Conc 33.8 g/dl (31.0-35.0); Mean Corpuscular Hemoglobin 29.2 pg (27.0-33.0); Mean Corpuscular Volume 86.3 fL (80.0-98.0); Mean Platelet Volume 10.3 fL (9.4-12.3); Monocytes Absolute Auto 0.5 X10*3/uL (0.1-1.2); Monocytes Percent Auto 5.4 % (2-11); Neutrophils Absolute Auto 6.9 x10*3/uL (2.0-8.3); Neutrophils Percent Auto 73.7 % (45-73); Platelet Count 368 X10*3/uL (160-400); Red Blood Count 4.76 X10*6/uL (4.20-5.50); Red Cell Distribution Width 13.8 % (11.0-16.0); White Blood Count 9.4 X10*3/uL (4.8-10.8)
[2023-04-22 17:47] LABS: Alanine Aminotransferase 42 U/L (0-31); Albumin Level 4.5 g/dL (3.5-5.0); Alkaline Phosphatase 135 U/L (39-117); Anion Gap 14 (12-20); Aspartate Amino Transferase 31 U/L (5-31); Bilirubin Direct 0.2 mg/dL (0.0-0.5); Bilirubin Total 0.5 mg/dL (0.0-1.0); Blood Urea Nitrogen 9 mg/dL (9-16); Calcium 9.6 mg/dL (8.4-10.2); Carbon Dioxide 24 mmol/L (22-29); Chloride 108 mmol/L (96-108); Creatinine Clr Calc Pharmacy 113.2; Estimated Glomerular Filt Rate > 60; Glucose Random 95 mg/dL (60-115); Potassium 4.3 mmol/L (3.3-5.1); Sodium 142 mmol/L (135-145); Total Protein 7.6 g/dL (6.5-8.0)
[2023-04-22 18:00] LABS: Troponin-I High Sensitivity < 2.7 ng/L (<3.5-17.0)
[2023-04-22 18:41] VITALS: BP 141/58; PULSE 63; RESP 12; O2SAT 100
--- NOTE | 2023-04-22 19:07 | ED_ITS ---
HPI - General Adult General Chief complaint: General Medical Stated complaint: s/p stent 2 wks ago has chest pressure,sob, Time Seen by Provider: 04/22/23 16:45 History of Present Illness HPI narrative: patient is a 52-year-old female with a history of coronary artery disease. She had a cardiac catheterization done 2 weeks ago it was positive for a lesion in the LAD which was subsequently stented. Today she had chest pain which was pressure-like over the mid chest area it has been ongoing since she had the LAD lesion. Denies any radiation of the pain. Somewhat made worse with exertion. There is no fever no chills. there is no diaphoresis. There is no leg swelling. No history of blood clots. Patient is from home. No coughing no congestion or respiratory symptom. Related Data Home Medications Medication Instructions Recorded Confirmed fluoxetine 40 mg capsule 40 mg PO DAILY 04/05/23 04/20/23 levothyroxine 75 mcg tablet 75 mcg PO DAILY 04/05/23 04/20/23 Previous Rx's Medication Instructions Recorded aspirin 81 mg tablet,delayed 81 mg PO DAILY #60 tabs 04/05/23 release (Ecotrin Low Strength) isosorbide mononitrate 30 mg 30 mg PO DAILY #30 tabs 04/05/23 tablet,extended release 24 hr atorvastatin 40 mg tablet 40 mg PO DAILY #90 tabs 04/11/23 nitroglycerin 0.4 mg sublingual 0.4 mg sublingual Q5M PRN chest 04/11/23 tablet pain #25 tabs metoprolol tartrate 25 mg tablet 25 mg PO BID #60 tabs 04/20/23 Allergies Allergy/AdvReac Type Severity Reaction Status Date / Time No Known Allergies Allergy Verified 04/20/23 15:21 [No Known Allergies*] Review of Systems 2 Review of Systems: Positive chest pain Yes all other systems are reviewed and are negative [facility] Past Medical History Surgical History Hx of hysterectomy for benign disease Family History Family History Father CAD (coronary artery disease) Mother Mitral valve prolapse Social History Social History Alcohol intake: never Patient Tobacco Use Status: Never used Tobacco Smoked in Last 30 Days: No Use of substances other than those prescribed or required for medical reasons: No Advance Directives: No Advance Directives Information Provided: No Patient : No Physical Exam ED Vital Signs: Vital Signs - 24 hr 04/22/23 16:24 04/22/23 18:41 04/22/23 19:52 Temperature 97.5 F 97.8 F Pulse Rate 67 63 69 Respiratory Rate 16 12 13 Blood Pressure 133/85 141/58 H 126/77 Pulse Oximetry 98 100 100 Oxygen Delivery Method Room Air Room Air Room Air BMI result Body Mass Index 32.0 Appearance: Alert. Oriented X3. No acute distress. Eyes: Pupils equal, round and reactive to light. ENT: Pharynx normal. Neck: Normal inspection. Neck supple. No lymph nodes noted. No crepitus CVS: Normal heart rate and rhythm. Pulses normal. Normal S1 and S2 Respiratory: No respiratory distress. Breath sounds normal. No Wheezing. No rales Abdomen: Soft and nontender. No rigidity. No distention. good BS x4 Skin: Skin warm and dry. Normal skin color. Normal skin turgor. Extremities: No lower extremity edema. Neurovascular intact to all extremities. No Lacerations. No Rash Neuro: Oriented X 3. No motor deficit. No sensory deficit. Moving all extermities. No slurred speech Medical Decision Making Medical Decision Making [facility] Narrative: patient well appearing but has proven coronary artery disease. her LAD is already stented. She continued to have chest pain with exertion. Her 1st set of cardiac enzyme is negative. My interpretation of her chest x-ray was grossly negative for any acute evidence of pneumonia Or pneumothorax. My interpretation of her EKG showed a sinus rhythm heart rate is 75 NC QRS QTC within normal limits is no acute ST segment elevation. patient's troponin was negative. Continued to have chest pain. Already on Brilinta. Case consulted by cardiology did not want additional anticoagulation. Will admit patient to the hospitalist team for further evaluation. Differential Diagnosis Differential Diagnoses: The differential diagnosis associated with the presentation includes Coronary artery disease, pneumonia, pericarditis Admission/Observation Consideration of admission/observation: Escalation of care including admission/observation considered Consult Healthcare Provider Management of the patient was discussed with: Hospitalist and Wind Farm Engineer ( Cardiology) Lab Data [facility] Lab Attestation statement: I reviewed the patient's lab results. 04/22/23 17:20 04/22/23 17:20 Labs: Lab Results 04/22/23 Range/Units 17:20 WBC 9.4 (4.8-10.8) X10*3/uL RBC 4.76 (4.20-5.50) X10*6/uL Hgb 13.9 (12.0-16.0) g/dl Hct 41.1 (37.0-47.0) % MCV 86.3 (80.0-98.0) fL MCH 29.2 (27.0-33.0) pg MCHC 33.8 (31.0-35.0) g/dl RDW 13.8 (11.0-16.0) % Plt Count 368 (160-400) X10*3/uL MPV 10.3 (9.4-12.3) fL Immature Gran % (Auto) 0.2 (0.0-0.4) % Neut % (Auto) 73.7 H (45-73) % Lymph % (Auto) 17.3 L (20-40) % [place] % (Auto) 5.4 (2-11) % Eos % (Auto) 2.7 (0-4) % Baso % (Auto) 0.7 (0-2) % Lymph # (Auto) 1.6 (1.2-4.9) X10*3/uL [place] # (Auto) 0.5 (0.1-1.2) X10*3/uL Eos # (Auto) 0.3 (0.0-0.4) X10*3/uL Baso # (Auto) 0.1 (0.0-0.2) X10*3/uL Abs Immat Gran (auto) 0.02 (0.00-0.03) X10*3/uL Absolute Neuts (auto) 6.9 (2.0-8.3) x10*3/uL Absolute Nucleated RBC 0.000 (0.0-0.012) X10*3/uL Nucleated RBC % (auto) 0.0 (0.0-0.2) /100WBC Sodium 142 (135-145) mmol/L Potassium 4.3 (3.3-5.1) mmol/L Chloride 108 (96-108) mmol/L Carbon Dioxide 24 (22-29) mmol/L Anion Gap 14 (12-20) BUN 9 (9-16) mg/dL Creatinine 0.74 (0.5-1.4) mg/dL Estim Creat Clear Calc 113.2 Estimated GFR > 60 Random Glucose 95 (60-115) mg/dL Calcium 9.6 (8.4-10.2) mg/dL Total Bilirubin 0.5 (0.0-1.0) mg/dL Direct Bilirubin 0.2 (0.0-0.5) mg/dL AST 31 (5-31) U/L ALT 42 H (0-31) U/L Alkaline Phosphatase 135 H (39-117) U/L Troponin I High Sens < 2.7 (<3.5-17.0) ng/L Total Protein 7.6 (6.5-8.0) g/dL Albumin 4.5 (3.5-5.0) g/dL Independent Interpretation I performed an independent interpretation of an: EKG and Plain X-Ray ( Chest x- ray grossly negative for any acute evidence of pneumonia pneumothorax) Interpretation: sinus heart rate is 75 NC QRS QTC within normal limits there is no acute ST segment elevation. Radiology Impression Discussion of test interpretation with radiology: I have reviewed the radiologist's reading. External Record Review External record reviewed: Office record Chronic Conditions history of coronary artery disease status post stents family history of coronary artery disease Discharge Plan Discharge Clinical Impression: Chest pain Patient Disposition: Admitted As Inpatient
[2023-04-22 19:52] VITALS: BP 126/77; PULSE 69; RESP 13; TEMP 36.6; O2SAT 100
--- NOTE | 2023-04-22 20:13 | PM.IMHP ---
History of Present Illness Date of Service: 04/22/23 Chief Complaint: Chest pain This is a 52-year-old female with pertinent history of CAD status post LAD stent (04/07/2023) on DAPT, mood disorder, essential hypertension, hypothyroidism who presents to the emergency department for evaluation of chest discomfort. Patient states her chest discomfort improved after the cardiac stenting but returned soon after. It has been progressive and present even at rest. It worsens with activity and reduces with rest. Patient presents today as she was having nausea, lightheadedness and dyspnea along with her chest discomfort. It was midsternal and a feeling of heaviness in her chest. No fever, chills, palpitations, abdominal pain, changes in urinary or bowel habits. Patient's father had a heart attack when he was 47. Patient's grandmother of heart attack in her 30s. In the emergency department, cardiology was consulted who requested admission Review of Systems Cardiovascular: Cardiovascular: Reports chest pain and Reports chest pain with activity Respiratory: Respiratory: Reports no additional respiratory complaints Gastrointestinal: Gastrointestinal: Reports no additional gastrointestinal complaints Genitourinary: Genitourinary: Reports no additional female genitourinary complaints [facility] Medical History Essential hypertension Mood disorder Coronary artery disease Family History Father CAD (coronary artery disease) Mother Mitral valve prolapse Surgical History S/P cardiac cath Hx of hysterectomy for benign disease Social History Alcohol intake: never Patient Tobacco Use Status: Never used Tobacco Smoked in Last 30 Days: No Use of substances other than those prescribed or required for medical reasons: No Advance Directives: No Advance Directives Information Provided: No Patient : No Meds Allergies Allergy/AdvReac Type Severity Reaction Status Date / Time No Known Allergies Allergy Verified 04/20/23 15:21 [No Known Allergies*] Home Medications Medication Instructions Recorded Confirmed Last Taken Type fluoxetine 40 mg capsule 40 mg PO DAILY 04/05/23 04/20/23 Unknown History levothyroxine 75 mcg tablet 75 mcg PO DAILY 04/05/23 04/20/23 Unknown History Physical Exam Vital Signs and Narrative: Vital Signs: Last Vital Signs Temp 97.8 F 04/22/23 19:52 Pulse 69 04/22/23 19:52 Resp 13 04/22/23 19:52 BP 126/77 04/22/23 19:52 Pulse Ox 100 04/22/23 19:52 O2 Del Method Room Air 04/22/23 19:52 BMI result Body Mass Index 32.0 Middle-aged female lying in bed in no distress Neck supple, no JVD Regular rate and rhythm, S1-S2 heard Regular breath sounds bilaterally, no wheezing or crackles appreciated Abdomen soft nontender, no guarding, no rigidity Patient is awake, alert and oriented to self, place, time and person ; no focal motor deficit Psych: Normal mood No pedal edema Results Labs 04/22/23 17:20 04/22/23 17:20 Labs: Laboratory Results - last 24 hr 04/22/23 17:20 MCV 86.3 MCH 29.2 MCHC 33.8 RDW 13.8 Plt Count 368 MPV 10.3 Immature Gran % (Auto) 0.2 Neut % (Auto) 73.7 H Lymph % (Auto) 17.3 L [place] % (Auto) 5.4 Eos % (Auto) 2.7 Baso % (Auto) 0.7 Lymph # (Auto) 1.6 [place] # (Auto) 0.5 Eos # (Auto) 0.3 Baso # (Auto) 0.1 Abs Immat Gran (auto) 0.02 Absolute Neuts (auto) 6.9 Absolute Nucleated RBC 0.000 Nucleated RBC % (auto) 0.0 Anion Gap 14 Estim Creat Clear Calc 113.2 Estimated GFR > 60 Random Glucose 95 Calcium 9.6 Total Bilirubin 0.5 Direct Bilirubin 0.2 AST 31 ALT 42 H Alkaline Phosphatase 135 H Total Protein 7.6 Albumin 4.5 Imaging Radiologist's Impressions: Impressions Chest X-Ray 04/22/23 16:54 IMPRESSION: No evidence of acute disease Assessment and Plan (1) Chest pain: Status: Acute Plan This is a 52-year-old female with pertinent history of CAD status post LAD stent (04/07/2023) on DAPT, mood disorder, essential hypertension, hypothyroidism who presents to the emergency department for evaluation of chest discomfort. #. Chest discomfort in a patient with recent cardiac catheterization and stent placement. Will admit patient with cardiac monitoring. On dual antiplatelet therapy. Cardiology was consulted who will evaluate the patient in a.m. and did not recommend anticoagulation. Continue beta-dillon and high-intensity statin. Trend troponins #. Essential hypertension. Continue home antihypertensives #. Mood disorder. Continue home mood stabilizers #. Hypothyroidism. On Synthroid Med rec pending DVT prophylaxis: Lovenox Full code Time Spent With Patient Time: Total time managing care of this patient today ____ minutes. Quality Stroke Does the patient have a stroke diagnosis?: No VTE Prior VTE?: No VTE Risk Level:: Medical - moderate - high VTE Device Contraindication: Treatment Not Indicated VTE Drug Contraindication: N/A - Med Ordered
[2023-04-22 20:41] LABS: Troponin-I High Sensitivity < 2.7 ng/L (<3.5-17.0)
--- NOTE | 2023-04-22 21:15 | PC.NURSE ---
Pt not at the bedside and eloped. aware.
--- NOTE | 2023-04-22 21:24 | PM.EVENT ---
Event Note Date of Service: 04/22/23 Event Note: I was notified by the nurse that patient eloped Time Spent With Patient Time: Total time managing care of this patient today ____ minutes.
--- NOTE | 2023-04-22 21:25 | P.DS_ITS ---
DS: Providers Provider Date of Service: 04/22/23 Date of admission: 04/22/23 20:12 Date of discharge: 04/22/23 Primary care physician: Seymour Mitchell MD Consults: 04/22/23 20:23 Consult to Cardiology Routine Consulting Provider: [facility] [place] Cardiovascular Services Reason for consultation: chest pain Has provider been notified: Yes DS: Diagnosis Discharge Diagnosis (1) Chest pain: Status: Acute DS: Summary Hospital Course Hospital Course: This is a 52-year-old female with pertinent history of CAD status post LAD stent (04/07/2023) on DAPT, mood disorder, essential hypertension, hypothyroidism who presents to the emergency department for evaluation of chest discomfort. Patient states her chest discomfort improved after the cardiac stenting but returned soon after. It has been progressive and present even at rest. It worsens with activity and reduces with rest. Patient presents today as she was having nausea, lightheadedness and dyspnea along with her chest discomfort. It was midsternal and a feeling of heaviness in her chest. No fever, chills, palpitations, abdominal pain, changes in urinary or bowel habits. Patient's father had a heart attack when he was 47. Patient's grandmother of heart attack in her 30s. In the emergency department, cardiology was consulted who requested admission Hospital course: Soon after patient was admitted, I was notified by the nurse that patient eloped. Status at Discharge Functional status at discharge: independent ambulation Time Spent with Patient Time attestation: Total time managing care of this patient today ____ minutes. Discharge coordination time: Less than 30 minutes Quality: Safe Use of Opioids Does Pt have an Active Cancer Diagnosis on the Problem List?: No Quality: Stroke Does the patient have a stroke diagnosis?: No Physical Exam Vital Signs: Vital Signs: Last Vital Signs Temp 97.8 F 04/22/23 19:52 Pulse 69 04/22/23 19:52 Resp 13 04/22/23 19:52 BP 126/77 04/22/23 19:52 Pulse Ox 100 04/22/23 19:52 O2 Del Method Room Air 04/22/23 19:52 BMI result Body Mass Index 32.0 Middle-aged female lying in bed in no distress Neck supple, no JVD Regular rate and rhythm, S1-S2 heard Regular breath sounds bilaterally, no wheezing or crackles appreciated Abdomen soft nontender, no guarding, no rigidity Patient is awake, alert and oriented to self, place, time and person ; no focal motor deficit Psych: Normal mood No pedal edema DS: Data Data Completed and Pending Labs on day of discharge: Laboratory Results - last 24 hr 04/22/23 04/22/23 17:20 19:59 WBC 9.4 RBC 4.76 Hgb 13.9 Hct 41.1 MCV 86.3 MCH 29.2 MCHC 33.8 RDW 13.8 Plt Count 368 MPV 10.3 Immature Gran % (Auto) 0.2 Neut % (Auto) 73.7 H Lymph % (Auto) 17.3 L Parke % (Auto) 5.4 Eos % (Auto) 2.7 Baso % (Auto) 0.7 Lymph # (Auto) 1.6 Parke # (Auto) 0.5 Eos # (Auto) 0.3 Baso # (Auto) 0.1 Abs Immat Gran (auto) 0.02 Absolute Neuts (auto) 6.9 Absolute Nucleated RBC 0.000 Nucleated RBC % (auto) 0.0 Sodium 142 Potassium 4.3 Chloride 108 Carbon Dioxide 24 Anion Gap 14 BUN 9 Creatinine 0.74 Estim Creat Clear Calc 113.2 Estimated GFR > 60 Random Glucose 95 Calcium 9.6 Total Bilirubin 0.5 Direct Bilirubin 0.2 AST 31 ALT 42 H Alkaline Phosphatase 135 H Troponin I High Sens < 2.7 < 2.7 Total Protein 7.6 Albumin 4.5 Discharge Plan Discharge Patient Disposition: Left Against Medical Advice Discharge Diagnosis: Chest pain Referrals: Seymour Mitchell MD [Primary Care Provider] - 1 Week Discharge Medications: No Action atorvastatin 40 mg tablet 40 mg PO DAILY Qty: 90 3RF nitroglycerin 0.4 mg tablet, sublingual 0.4 mg sublingual Q5M PRN (Reason: chest pain) Qty: 25 2RF Rx Instructions: do not exceed 3 doses per episode levothyroxine 75 mcg tablet 75 mcg PO DAILY fluoxetine 40 mg capsule 40 mg PO DAILY isosorbide mononitrate 30 mg tablet extended release 24 hr 30 mg PO DAILY Qty: 30 2RF aspirin [Ecotrin Low Strength] 81 mg tablet,delayed release (DR/EC) 81 mg PO DAILY Qty: 60 1RF metoprolol tartrate 25 mg tablet 25 mg PO BID Qty: 60 5RF Discharge Orders: Discharge Order (Routine); Ordered 04/22/23 Ordered By: Nehal Ewing Care Plan Goals: Follow-up with PCP and Cardiology within 1 week Health Concerns: Coronary artery disease Plan of Treatment: Continue dual antiplatelet therapy, statin and beta-dillon. Assessment: As above
--- NOTE | 2023-04-23 09:09 | PHA.MEDREC ---
Pharmacy Consult ? Medication Reconciliation Pharmacy has completed the medication reconciliation. Used pharmacy and discharge summaries
== END 2023-04-22 23:52 | disposition left against medical advice (07) ==
LOC: HO.ED 19:11 → HO.EDOVER 20:15 → HO.IMC 23:31
PROVIDERS: Physician Assistant Medical; Admitting Provider Student in an Organized Health Care Education/Training Program; Emergency Provider Emergency Medicine Emergency Medical Services; PCP Internal Medicine; Visit Provider Student in an Organized Health Care Education/Training Program
DX: R07.89 Other chest pain (principal); R06.02 Shortness of breath; R42 Dizziness and giddiness; I10 Essential (primary) hypertension; E03.9 Hypothyroidism, unspecified; Z95.5 Presence of coronary angioplasty implant and graft; Z79.899 Other long term (current) drug therapy
CPT/HCPCS: 36415; 71046; 80048; 80076; 84484; 85025; 92950; 93005; 99222; 99285

== ENCOUNTER → 2023-04-22 20:12 | Outpatient (BNV) | payer OTHER, SELFPAY | PROVIDERS: Admitting Provider Student in an Organized Health Care Education/Training Program; Emergency Provider Emergency Medicine Emergency Medical Services; PCP Internal Medicine; Visit Provider Student in an Organized Health Care Education/Training Program | DX: R07.9 Chest pain, unspecified (principal); Z53.29 Procedure and treatment not carried out because of patient's decision for other reasons | CPT/HCPCS: 99235; 99499 ==

== ENCOUNTER 2023-05-11 11:00 | Outpatient (AMB) | payer OTHER, SELFPAY ==
--- NOTE | 2023-05-11 11:12 | MHC.OFFVIS ---
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: No Allergies No Known Allergies [No Known Allergies*] Allergy (Verified 05/11/23 11:16) Medication List - Last Reconciled 05/11/23 by Evangelina Castro NP-C aspirin (Ecotrin Low Strength) 81 mg PO DAILY atorvastatin 40 mg PO DAILY fluoxetine 40 mg PO DAILY levothyroxine 75 mcg PO DAILY metoprolol tartrate 25 mg PO BID nitroglycerin 0.4 mg sublingual Q5M PRN ticagrelor (Brilinta) 90 mg PO BID HPI HPI Comments History of Present Illness Details Brandy is a 52-year-old female past medical history of obesity, family history of early CAD, recent report of angina with abnormal nuclear stress test followed by cardiac catheterization and coronary stent placement. On last visit she was still having mild chest discomfort and metoprolol was added. Two days later she was seen in the emergency room for chest discomfort and ruled out for ACS. Today she reports that she has been doing well since her ER visit. She no longer gets chest discomfort with exertion. No palpitations, presyncope, syncope, falls. No shortness of breath, PND, orthopnea or edema. No bleeding issues reported. Taking all meds as directed. She is interested in cardiac rehab. [facility] Medical History Essential hypertension Mood disorder Coronary artery disease Surgical History S/P cardiac cath Hx of hysterectomy for benign disease Family History Father CAD (coronary artery disease) Mother Mitral valve prolapse Social History Alcohol intake: never Patient Tobacco Use Status: Never used Tobacco Review of Systems Const All systems reviewed & are unremarkable except as noted in HPI and below ENT Denies dizziness Card Denies chest pain, Denies chest pain at rest, Denies chest pain with activity, Denies rapid heart rate, Denies pedal edema, Denies edema, Denies leg edema, Denies lightheadedness, Denies palpitations, Denies dyspnea, Denies dyspnea on exertion and Denies orthopnea Resp Denies cough, Denies dyspnea and Denies dyspnea on exertion GI Denies hematochezia and Denies change in stool character Musc Denies abnormal gait, Denies limited range of motion, Denies muscle cramps, Denies muscle weakness, Denies numbness, Denies radiating pain into limb, Denies stiffness and Denies tingling Neuro Denies abnormal gait, Denies dizziness, Denies numbness and Denies tingling Endo Denies palpitations Physical Exam Vital Signs: Last Vital Signs Pulse 65 05/11/23 11:13 BP 120/82 05/11/23 11:13 BMI result Body Mass Index 31.7 Const General: cooperative, healthy appearing, comfortable and no acute distress Orientation/consciousness: patient oriented x3 HEENT Head: Yes normal to inspection Neck Neck: Yes normal visual inspection and Yes no JVD Carotids: normal carotid upstroke Chest Chest palpation & inspection: normal inspection of the chest Resp Effort & Inspection: normal respiratory effort Auscultation: clear to auscultation bilaterally, no crackles, no rales, no rhonchi and no wheezes Cardio Jugular venous distension: no JVD Rate: regular rate Rhythm: regular rhythm Heart sounds: S1 normal heart sound present, S2 normal heart sound present, no gallops, no murmurs and no rubs Peripheral pulses: Peripheral pulses 2+ throughout Skin General skin exam: no rashes or lesions noted Neuro General: patient oriented x3 Extrem Other: right radial cath site well healed General: Yes normal to inspection, No no pedal edema and No calf tenderness Psych Appearance: grossly normal Mental Status: mental status grossly normal Speech and movement: Normal speech and movement present Assessment & Plan Assessment & Plan (1) Crescendo angina: Code(s): 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 She had had a nuclear stress test on 04/06/2023 which was positive for chest discomfort, EKG changes and severe defect in the mid distal anterior wall and adjacent apex. She underwent a cardiac catheterization on 04/07/2023 showing mid LAD 99% stenosis, diagonal 70% stenosis, left circumflex normal, mid RCA 40% stenosis, proximal RCA 60% stenosis. PCI was done to the mid LAD. On last visit she reported much improvement in her symptoms however still had mild chest discomfort with activity. It was noted she was not on metoprolol at that time and it was added, 25 mg b.i.d. she was seen in the emergency room 2 days later with chest discomfort and ruled out for ACS. She has done well since that time and her chest discomfort has fully resolved. Does have some lightheadedness at time with position changes. Blood pressure is normal range today. If she continues with lightheaded symptoms she can try reducing metoprolol to 12.5 mg b.i.d.. She has not been taking isosorbide and believe she never received it from the pharmacy. She will continue on aspirin indefinitely. Continue Brilinta 90 mg b.i.d. uninterrupted for at least 1 year. Continue atorvastatin with ideal LDL goal less than 70. Echocardiogram is scheduled for next week to assess EF and wall motion. Full start in cardiac rehab. Signs and symptoms of angina reviewed. Cardiology office visit in 3 months, sooner if needed. (2) Coronary artery disease: Code(s): I25.10 - Atherosclerotic heart disease of [place] coronary artery without angina pectoris Qualifiers: Associated angina: with stable angina Coronary Disease-Associated Artery/Lesion type: [place] artery [place] vs. transplanted heart: [place] heart Qualified Code(s): I25.118 - Atherosclerotic heart disease of [place] coronary artery with other forms of angina pectoris (3) S/P cardiac cath: Comment: 04/07/2023, mid LAD 99% stenosis, diagonal 70% stenosis, left circumflex normal, mid RCA 40% stenosis, proximal RCA 60% stenosis, PCI to the mid LAD Code(s): Z98.890 - Other specified postprocedural states Plan: Right radial catheterization site well healed (4) Coronary artery disease: Code(s): I25.10 - Atherosclerotic heart disease of [place] coronary artery without angina pectoris Qualifiers: Coronary Disease-Associated Artery/Lesion type: [place] artery [place] vs. transplanted heart: [place] heart Associated angina: with stable angina Qualified Code(s): I25.118 - Atherosclerotic heart disease of [place] coronary artery with other forms of angina pectoris Orders: Orders Cardiac Rehab Today Z95.5 - Presence of coronary angioplasty implant and graft, Z98.890 - Other specified postprocedural states Coding Level of Care Code Est Pt Level 4 (97049) Diagnoses Crescendo angina I20.0 Coronary artery disease of [place] artery of [place] heart with stable angina pectoris I25.118 Associated angina: with stable angina Coronary Disease-Associated Artery/Lesion type: [place] artery [place] vs. transplanted heart: [place] heart S/P cardiac cath Z98.890 Time Spent (min) 24
[2023-05-11 11:13] VITALS: BP 120/82; PULSE 65; BMI 31.7
== END 2023-05-11 11:34 | disposition home or self-care (01) ==
PROVIDERS: PCP Internal Medicine; Visit Provider Nurse Practitioner Family
DX: I25.118 Atherosclerotic heart disease of native coronary artery with other forms of angina pectoris (principal); Z98.890 Other specified postprocedural states
CPT/HCPCS: 99214

== ENCOUNTER → 2023-05-11 11:00 | Outpatient (BNVA) | payer OTHER, SELFPAY | PROVIDERS: PCP Internal Medicine; Visit Provider Nurse Practitioner Family ==

== ENCOUNTER → 2023-05-18 13:53 | Outpatient (REF) | payer OTHER, SELFPAY ==
--- NOTE | 2023-05-18 13:55 | CA_ITS ---
Transthoracic Echocardiogram Patient (Last, First, Middle): Brandy Campa R Gender: Female Date of : 1970 Age: 52 Procedure Date: 05/18/2023 Procedure Type: Transthoracic Echocardiogram Location: OP Height: 177.8 cm Weight: 99.79 kg BSA: 2.17 m2 Heart Rate: bpm BP: 120 / 82 mmHg Making Machine Operator: QUENTIN Referring MD: Shashank Mary MD Symptoms: I20.0 - Unstable angina Study Quality: Adequate with contrast Conclusions: - Normal left ventricular size, thickness, systolic function, and wall motion. The visually estimated ejection fraction is between 55-60%. Diastolic function is normal for age. - Normal right ventricular cavity size and systolic function. Findings Procedure Information Contrast agent, definity, is being given per protocol without apparent complications. Left Ventricle Normal left ventricular size, thickness, systolic function, and wall motion. The visually estimated ejection fraction is between 55-60%. Diastolic function is normal for age. Right Ventricle Normal right ventricular cavity size and systolic function. Atria The left atrium is normal in size. The right atrium is normal in size. Aortic Valve Normal aortic valve structure and function. There is no aortic valve stenosis. There is no aortic valve regurgitation. Mitral Valve The mitral valve appears normal. There is trace mitral valve regurgitation. There is no mitral valve stenosis. Pulmonic Valve Normal pulmonic valve structure and function. There is trace pulmonic valve regurgitation. Tricuspid Valve Normal tricuspid valve structure. There is trace tricuspid valve regurgitation. Normal right atrial pressure. There is no evidence of pulmonary hypertension. Great Vessels All visible segments of the aorta are normal in size. The visualized portions of the pulmonary artery and branches are normal. Venous The inferior vena cava is normal in size and collapses greater than 50% with inspiration. Pericardium/Pleural There is no evidence of pericardial effusion. Measurements 2D Linear Measurements IVSd: 0.89 0.6-0.9/0.6-1.0 cm LVIDd: 4.53 3.9-5.3/4.2-5.9 cm LVIDd Index: 2.09 2.4-3.2/2.2-3.1 cm/m2 LVIDs: 2.87 2.0-3.6 cm LVPWd: 0.81 0.7-1.1 cm LA Diam: 3.00 2.7-3.8/3.0-4.0 cm LAIDs Index: 1.38 1.5-2.3 cm/m2 LV Mass: 155.16 67-162/88-224 g LV Mass Index: 71.50 43-95/49-115 g/m2 LVOT Diam: 2.10 3.0+(-)1.3 cm 2D Systolic Function EF 4C: 58.50 >55% EF 2C: 62.70 >55% EF BiP: 61.30 >55% Mitral Valve MV Pk E: 0.70 MV PK A: 0.88 MV Decel Time: 189.00 E/A: 0.80 E'Lateral: 10.30 E'Medial: 8.81 E/E' Med: 7.90 E/E' Lat: 6.80 PHT: 55.00 MVA PHT: 4.00 Decel [place]: 3.70 Aortic Valve AoV Pk Clarence: 1.20 AoV Mn Clarence: 0.83 AoV VTI: 0.27 AoV Pk Grad: 6.00 Aov Mn Grad: 3.00 PEGGY Cont.VTI: 2.49 LVOT LVOT Pk Clarence: 0.91 LVOT Mn Clarence: 0.56 LVOT VTI: 0.19 LVOT Pk Grad: 3.00 LVOT Mn Grad: 2.00 LVOT Diam: 2.10 LVOT Area: 3.46 Diastolic Function MV Pk E: 0.70 MV Pk A: 0.88 E/A: 0.80 E'Medial: 8.81 E/E' Med: 7.90 E' Laterial: 10.30 E/E' Lat: 6.80 Right Ventricle TAPSE (mm): 22.20 TVS' Clarence: 10.40 Tricuspid Valve TR Pk Clarence: 2.06 TR Pk Grad: 17.00 RA Press: 3.00 RVSP: 20.00 Great Vessels Aorta Sinus of Valsalva: 3.15 2.0-3.[address] [place]: 2.42 1.7-3.4 cm Ao Asc: 2.90 2.1-3.4 cm Updated in Other Vendor System with Status of Final David Morel MD electronically signed on 05/19/2023 3:10:07 PM with status of Final
== END ==
LOC: HO.CARD 13:53
PROVIDERS: PCP Internal Medicine; Visit Provider Internal Medicine Cardiovascular Disease
DX: I20.0 Unstable angina (principal)
CPT/HCPCS: 93306; Q9957

== ENCOUNTER → 2023-05-18 13:55 | Outpatient (BNV) | payer OTHER, SELFPAY | PROVIDERS: PCP Internal Medicine; Visit Provider Internal Medicine Cardiovascular Disease | DX: I20.0 Unstable angina (principal) | CPT/HCPCS: 93306 ==

== ENCOUNTER 2023-05-30 14:45 | Outpatient (REF) | payer OTHER, SELFPAY ==
--- NOTE | ~2023-05-30 | US_ITS ---
EXAMINATION: US EXTRACRANIAL CAROTID DUPLEX, BILATERAL CLINICAL INFORMATION: Dizziness COMPARISON: None available. TECHNIQUE: Real-time ultrasound and Doppler techniques (integrating B-mode 2-D vascular images, Doppler spectral analysis and color-flow Doppler imaging) were utilized to interrogate the extracranial carotid arteries, the vertebral arteries and proximal subclavian arteries bilaterally. The degree of stenosis is determined by criteria similar to NASCET. FINDINGS: Right Side: 1. There is no visualized atherosclerotic plaque seen in the bifurcation/proximal ICA region. 2. The common carotid artery PSV proximally is 107 cm/s and distally 88.2 cm/s. 3. The proximal internal carotid artery velocities are 69.3 cm/s systolic and 24.1 cm/s diastolic. 4. The proximal external carotid artery PSV is 85.1 cm/s. 5. The vertebral artery shows antegrade flow. 6. The subclavian artery waveforms are normal. Left Side: 1. There is no visualized atherosclerotic plaque seen in the bifurcation/proximal ICA region. 2. The common carotid artery PSV proximally is 106 cm/s and distally 93.4 cm/s. 3. The proximal internal carotid artery velocities are 55.5 cm/s systolic and 18.2 cm/s diastolic. 4. The proximal external carotid artery PSV is 71.3 cm/s. 5. The vertebral artery shows antegrade flow. 6. The subclavian artery waveforms are normal. US/US carotid duplex BI IMPRESSION: 1. RIGHT: Normal right internal carotid artery without atherosclerotic plaque or hemodynamically significant stenosis. 2. LEFT: Normal left internal carotid artery without atherosclerotic plaque or hemodynamically significant stenosis.
== END 2023-05-30 14:46 | disposition home or self-care (01) ==
LOC: HO.US 14:45
PROVIDERS: PCP Internal Medicine; Visit Provider Internal Medicine
DX: R42 Dizziness and giddiness (principal)
CPT/HCPCS: 93880

== ENCOUNTER 2023-08-22 12:58 | Outpatient (AMB) | payer OTHER, SELFPAY ==
[2023-08-22 13:12] VITALS: BP 120/76; PULSE 72; BMI 31.3
--- NOTE | 2023-08-22 13:12 | MHC.OFFVIS ---
Intake Vital Signs 08/22/23 13:12 Height 5 ft 10 in Weight 218 lb 4.122 oz BMI 31.3 BP 120/76 Blood Pressure Location Lt brachial Position Sitting Pulse 72 Intake Visit Reasons: 3 month follow up Intake Note: 3 month follow-up feeling good Allergies No Known Allergies [No Known Allergies*] Allergy (Verified 05/11/23 11:16) Medication List - Last Reconciled 08/22/23 by Shashank Mary MD aspirin (Ecotrin Low Strength) 81 mg PO DAILY atorvastatin 40 mg PO DAILY fluoxetine 40 mg PO DAILY levothyroxine 75 mcg PO DAILY metoprolol tartrate 25 mg PO BID nitroglycerin 0.4 mg sublingual Q5M PRN ticagrelor (Brilinta) 90 mg PO BID HPI HPI Comments History of Present Illness Details Brandy comes for follow-up. Patient denies any significant chest pain. She has been walking, with her dogs up to 2 miles and has no symptoms of angina. Overall doing well. Tolerating her medications well. Blood pressures been controlled. Denies any heart failure symptoms. [facility] Medical History Crescendo angina Essential hypertension Mood disorder Coronary artery disease Surgical History Stented coronary artery S/P cardiac cath Hx of hysterectomy for benign disease Family History Father CAD (coronary artery disease) Mother Mitral valve prolapse Social History Alcohol intake: never Patient Tobacco Use Status: Never used Tobacco Review of Systems Const Denies chills, Denies fatigue, Denies fever(s), Denies frequent falls, Denies weakness, Denies weight gain and Denies weight loss ENT Denies dizziness Card Denies chest pain, Denies leg edema, Denies lightheadedness, Denies palpitations, Denies dyspnea, Denies dyspnea on exertion, Denies orthopnea and Denies other (loss of consciousness) Resp Denies cough, Denies dyspnea and Denies dyspnea on exertion GI Denies hematochezia and Denies change in stool character Musc Denies abnormal gait, Denies muscle weakness, Denies numbness, Denies radiating pain into limb and Denies tingling Neuro Denies abnormal gait, Denies dizziness, Denies frequent falls, Denies numbness, Denies tingling and Denies weakness Endo Denies fatigue and Denies palpitations Physical Exam Vital Signs: Last Vital Signs Pulse 72 08/22/23 13:12 BP 120/76 08/22/23 13:12 BMI result Body Mass Index 31.3 Const General: cooperative, healthy appearing, comfortable and no acute distress Orientation/consciousness: patient oriented x3 HEENT Head: Yes normal to inspection Neck Neck: Yes normal visual inspection and Yes no JVD Carotids: normal carotid upstroke Chest Chest palpation & inspection: normal inspection of the chest Resp Effort & Inspection: normal respiratory effort Auscultation: clear to auscultation bilaterally, no crackles, no rales, no rhonchi and no wheezes Cardio Jugular venous distension: no JVD Rate: regular rate Rhythm: regular rhythm Heart sounds: S1 normal heart sound present, S2 normal heart sound present, no gallops, no murmurs and no rubs Peripheral pulses: Peripheral pulses 2+ throughout Skin General skin exam: no rashes or lesions noted Neuro General: patient oriented x3 Extrem Other: right radial cath site well healed General: Yes normal to inspection, No no pedal edema and No calf tenderness Psych Appearance: grossly normal Mental Status: mental status grossly normal Speech and movement: Normal speech and movement present Assessment & Plan Assessment & Plan (1) Coronary artery disease: Code(s): I25.10 - Atherosclerotic heart disease of [place] coronary artery without angina pectoris Qualifiers: Associated angina: with stable angina Coronary Disease-Associated Artery/Lesion type: [place] artery [place] vs. transplanted heart: [place] heart Qualified Code(s): I25.118 - Atherosclerotic heart disease of [place] coronary artery with other forms of angina pectoris Plan: CAD status post drug-eluting stent to LAD for crescendo angina and abnormal stress test. She also has nonobstructive disease in other segments including the diagonal branch in the RCA as well as mild disease in circumflex. We discussed about management of drug-eluting stent in details. Continue dual antiplatelet therapy for total of 1 year uninterrupted. Beyond that I think given her age and low bleeding risk I would continue prolonged dual antiplatelet therapy but reduce Brilinta dose of 60 mg b.i.d.. Continue lifelong aspirin therapy. Continue high-intensity statin therapy, advise lipid panel and CRP in near future to further guide treatment. Role of statin therapy to prevent progressive atherosclerosis as well as acute coronary syndrome was discussed. Continue aggressive control blood pressure. Encouraged to increase her activity level. (2) Essential hypertension: Code(s): I10 - Essential (primary) hypertension Plan: Hypertension which is currently well optimized advised to monitor blood pressure at home and maintain a log. Goal blood pressure less than 130/84. Low-salt diet was discussed. Advised to participate in heart healthy lifestyle and regular physical activity. Will follow up in the clinic in 6 months time, sooner p.r.n.. Thank you for allowing me to partake in the care Orders: Orders Lipid Panel Today I25.10 - Atherosclerotic heart disease of [place] coronary artery without angina pectoris, I25.118 - Atherosclerotic heart disease of [place] coronary artery with other forms of angina pectoris CRP High Sensitivity Today I25.118 - Atherosclerotic heart disease of [place] coronary artery with other forms of angina pectoris Coding Level of Care Code Est Pt Level 4 (47489) Diagnoses Coronary artery disease of [place] artery of [place] heart with stable angina pectoris I25.118 Associated angina: with stable angina Coronary Disease-Associated Artery/Lesion type: [place] artery [place] vs. transplanted heart: [place] heart Essential hypertension I10
== END 2023-08-22 13:39 | disposition home or self-care (01) ==
PROVIDERS: PCP Internal Medicine; Visit Provider Internal Medicine Cardiovascular Disease
DX: I25.118 Atherosclerotic heart disease of native coronary artery with other forms of angina pectoris (principal); I10 Essential (primary) hypertension
CPT/HCPCS: 99214

== ENCOUNTER → 2023-08-22 12:58 | Outpatient (BNVA) | payer OTHER, SELFPAY | PROVIDERS: PCP Internal Medicine; Visit Provider Internal Medicine Cardiovascular Disease ==

== ENCOUNTER 2023-10-19 17:04 | Outpatient (REF) | payer OTHER, SELFPAY ==
[2023-10-19 17:40] LABS: Anion Gap 13 (12-20); Blood Urea Nitrogen 11 mg/dL (9-16); C Reactive Protein 0.26 mg/dL (< or = 0.50); Calcium 9.9 mg/dL (8.4-10.2); Carbon Dioxide 22 mmol/L (22-29); Chloride 109 mmol/L (96-108); Estimated Glomerular Filt Rate > 60; Glucose Random 94 mg/dL (60-115); Potassium 4.1 mmol/L (3.3-5.1); Sodium 140 mmol/L (135-145)
[2023-10-19 17:51] LABS: Troponin-I High Sensitivity < 2.7 ng/L (<3.5-17.0)
== END 2023-10-19 17:05 | disposition home or self-care (01) ==
LOC: HO.LAB 17:04
PROVIDERS: PCP Internal Medicine; Visit Provider Internal Medicine
DX: R07.9 Chest pain, unspecified (principal); Z86.79 Personal history of other diseases of the circulatory system; Z95.818 Presence of other cardiac implants and grafts
CPT/HCPCS: 36415; 80048; 82550; 84484; 86140

== ENCOUNTER 2023-11-01 12:56 | Outpatient (AMB) | payer OTHER, SELFPAY ==
[2023-11-01 12:57] VITALS: BP 130/78; PULSE 71; BMI 31.4
--- NOTE | 2023-11-01 12:57 | A.OFFVIS_ITS ---
Intake Vital Signs 11/01/23 12:57 Height 5 ft 10 in Weight 219 lb 2.232 oz BMI 31.4 BP 130/78 Blood Pressure Location Lt brachial Position Sitting Pulse 71 Pulse Source Monitor Intake Visit Reasons: NS pt- Croke req fu re: chest pain Intake Note: PT is following up for chest pain with EKG Allergies No Known Allergies [No Known Allergies*] Allergy (Verified 05/11/23 11:16) HPI HPI Comments History of Present Illness Details 53-year-old female presents today relate d to her chest pains. She has been having an increase in her constant dull ache/pressure in her chest. It has been fluctuating in the intensity. It is similar to the chest pains she had before her cardiac catheretization and never full went away. This discomfort worsens with stairs. She reports she did not do cardiac rehab as she works and it was only during work hours. [facility] Medical History Chest pain Crescendo angina Essential hypertension Mood disorder Coronary artery disease Surgical History Stented coronary artery S/P cardiac cath Hx of hysterectomy for benign disease Family History Father CAD (coronary artery disease) Mother Mitral valve prolapse Social History Alcohol intake: never Patient Tobacco Use Status: Never used Tobacco Review of Systems Const Denies weakness ENT Denies dizziness Card Denies chest pain, Denies chest pain with activity, Denies syncope, Denies rapid heart rate, Denies pedal edema, Denies edema, Denies leg edema, Denies lightheadedness, Denies palpitations, Denies dyspnea, Denies dyspnea on exertion and Denies orthopnea Resp Denies cough, Denies dyspnea and Denies dyspnea on exertion GI Denies hematochezia and Denies change in stool character Musc Denies abnormal gait, Denies muscle cramps, Denies muscle weakness, Denies numbness, Denies radiating pain into limb and Denies tingling Neuro Denies abnormal gait, Denies dizziness, Denies syncope, Denies numbness, Denies tingling and Denies weakness Endo Denies palpitations Physical Exam Vital Signs: Last Vital Signs Pulse 71 11/01/23 12:57 BP 130/78 11/01/23 12:57 BMI result Body Mass Index 31.4 Office Procedures EKG Details: EKG today. Normal Sinus Rhythm. Rate 72 bpm. QRS 86ms. QTc 446ms. SD 160ms. [id number], Complete Assessment & Plan Assessment & Plan (1) Chest pain: Code(s): R07.9 - Chest pain, unspecified (2) Coronary artery disease: Code(s): I25.10 - Atherosclerotic heart disease of [place] coronary artery without angina pectoris Qualifiers: Coronary Disease-Associated Artery/Lesion type: [place] artery [place] vs. transplanted heart: [place] heart Associated angina: with stable angina Qualified Code(s): I25.118 - Atherosclerotic heart disease of [place] coronary artery with other forms of angina pectoris Plan Patient with prior stent (04/07/23) in mid LAD which had 99% stenosis after having abnormal stress test. Symptoms persist and increasing in intensity. Discussed with Dr. Mary - should resend for another cardiac catheterization. Patient reports overall compliance with medications. Will restart isosorbide. Importance of medications discussed. She understands and agrees to plan. Orders: Orders Basic Metabolic Panel Today I25.10 - Atherosclerotic heart disease of [place] coronary artery without angina pectoris, R07.9 - Chest pain, unspecified Complete Blood Count Auto Diff Today I25.10 - Atherosclerotic heart disease of [place] coronary artery without angina pectoris, R07.9 - Chest pain, unspecified, Z01.812 - Encounter for preprocedural laboratory examination Prothrombin Time INR Today I25.10 - Atherosclerotic heart disease of [place] coronary artery without angina pectoris, R07.9 - Chest pain, unspecified, Z01.812 - Encounter for preprocedural laboratory examination Cardiac Cath LT w PCI Today I25.10 - Atherosclerotic heart disease of [place] coronary artery without angina pectoris, R07.9 - Chest pain, unspecified Medications: New isosorbide mononitrate ER 30 mg PO DAILY 30 tabs 3RF Coding Level of Care Code Est Pt Level 3 (53352) Diagnoses Chest pain R07.9 Coronary artery disease of [place] artery of [place] heart with stable angina pectoris I25.118 Coronary Disease-Associated Artery/Lesion type: [place] artery [place] vs. transplanted heart: [place] heart Associated angina: with stable angina CPT Codes EKG - CPT: 85465-[id number], Complete ([id number])
== END 2023-11-01 13:42 | disposition home or self-care (01) ==
PROVIDERS: PCP Internal Medicine; Visit Provider Nurse Practitioner
DX: R07.9 Chest pain, unspecified (principal); I25.118 Atherosclerotic heart disease of native coronary artery with other forms of angina pectoris
CPT/HCPCS: 93010; 99213

== ENCOUNTER 2023-11-01 13:55 | Outpatient (REF) | payer OTHER, SELFPAY ==
--- NOTE | ~2023-11-01 | CT_ITS ---
EXAMINATION: CT CHEST WITHOUT CONTRAST CLINICAL INFORMATION: Chest pain. COMPARISON: None available. TECHNIQUE: Multidetector volumetric CT imaging of the chest was done. Axial MIP volume rendering provided. Sagittal and coronal reformatted images were obtained. This CT examination was performed using dose optimization techniques as appropriate, variously including the following: *Automated exposure control *Adjustment of mA and/or kV according to patient size (this includes techniques or standardized protocols for targeted exams where dose is matched to indication/reason for exam; i.e. extremities or head) *Use of iterative reconstruction technique DLP: 313 mGy-cm FINDINGS: LUNGS: 3 mm nodule right lower lobe on image 307. 4 mm nodule lingula on image 303. Mild dependent changes. No focal consolidation. Central airways are patent. MEDIASTINUM: No bulky axillary, hilar or mediastinal lymphadenopathy. Great vessels are of normal caliber. Heart size is normal. No significant pericardial effusion. CORONARY ARTERY CALCIFICATION: Severe. PLEURA: No pleural effusion. UPPER ABDOMEN: Hiatal hernia. Hepatic steatosis. No adrenal mass. OSSEOUS STRUCTURES: No destructive bone lesions. CT/CT chest wo IV con IMPRESSION: Small pulmonary nodules measuring up to 4 mm. Follow-up chest CT in 12 months is advised.
== END 2023-11-01 13:56 | disposition home or self-care (01) ==
LOC: HO.CT 13:55
PROVIDERS: PCP Internal Medicine; Visit Provider Internal Medicine
DX: R07.89 Other chest pain (principal); I25.10 Atherosclerotic heart disease of native coronary artery without angina pectoris
CPT/HCPCS: 71250; 93005

== ENCOUNTER 2023-11-08 07:19 | Inpatient (IN) | payer OTHER, SELFPAY ==
[2023-11-08] VITALS (9 sets, daily range): BP systolic 115–148; BP diastolic 63–88; PULSE 62–118; RESP 14–20; TEMP 36.4–37.1; O2SAT 95–100; BMI 32.5; BMI 33.1
--- NOTE | ~2023-11-08 | XR_ITS ---
EXAMINATION: XR CHEST CLINICAL INFORMATION: Shortness of breath COMPARISON: 04/22/2023 TECHNIQUE: 2 views of the chest were obtained. FINDINGS: No significant abnormality is noted involving the heart, lungs, mediastinum, bony thorax or soft tissues. XR/XR chest 2V IMPRESSION: Unremarkable examination with no interval change
--- NOTE | 2023-11-08 07:20 | ECG_ITS ---
Test Reason : chest pain Blood Pressure : / mmHG Vent. Rate : 072 BPM Atrial Rate : 072 BPM P-R Int : 164 ms QRS Dur : 080 ms QT Int : 396 ms P-R-T Axes : 039 031 032 degrees QTc Int : 433 ms Normal sinus rhythm Normal ECG When compared with ECG of 22-APR-2023 15:41, No significant change was found Referred By: Generic ED Physician Electronically Signed By:ZULY ROJAS MD
[2023-11-08 08:07] LABS: MANUAL DIFF FLAG NO
[2023-11-08 08:11] LABS: Basophils Percent Auto 0.5 % (0-2); Eosinophils Absolute Auto 0.2 X10*3/uL (0.0-0.4); Eosinophils Percent Auto 2.2 % (0-4); Hematocrit 41.4 % (37.0-47.0); Imm Gran Abs Auto 0.02 X10*3/uL (0.00-0.03); Imm Gran Pct Auto 0.2 % (0.0-0.4); Lymphocytes Absolute Auto 1.4 X10*3/uL (1.2-4.9); Lymphocytes Percent Auto 16.8 % (20-40); Mean Corpuscular HGB Conc 33.8 g/dl (31.0-35.0); Mean Corpuscular Hemoglobin 28.9 pg (27.0-33.0); Mean Corpuscular Volume 85.5 fL (80.0-98.0); Mean Platelet Volume 10.2 fL (9.4-12.3); Monocytes Absolute Auto 0.4 X10*3/uL (0.1-1.2); Monocytes Percent Auto 5.5 % (2-11); Neutrophils Percent Auto 74.8 % (45-73); Platelet Count 331 X10*3/uL (160-400); Red Blood Count 4.84 X10*6/uL (4.20-5.50)
[2023-11-08 08:27] LABS: Anion Gap 14 (12-20); Blood Urea Nitrogen 12 mg/dL (9-16); Calcium 9.5 mg/dL (8.4-10.2); Carbon Dioxide 24 mmol/L (22-29); Chloride 108 mmol/L (96-108); Creatinine Clr Calc Pharmacy 101.1; Estimated Glomerular Filt Rate > 60; Glucose Random 109 mg/dL (60-115); Potassium 4.2 mmol/L (3.3-5.1); Sodium 142 mmol/L (135-145)
[2023-11-08 08:39] LABS: Troponin-I High Sensitivity < 2.7 ng/L (<3.5-17.0)
[2023-11-08 10:20] LABS: Troponin-I High Sensitivity < 2.7 ng/L (<3.5-17.0)
--- NOTE | 2023-11-08 12:07 | ED_ITS ---
HPI - Chest Pain General Chief Complaint: Chest Pain Stated Complaint: Chest pain, SOB Time Seen by Provider: 11/08/23 12:04 Source: patient and old records reviewed Mode of arrival: ambulatory Limitations: no limitations History of Present Illness HPI narrative: 53 yo female with PMH of CAD has FLOR to LAD 04/29 and known ds in diagonal branch of RCA and mild ds in circumflex follows with Dr. Mary here with c/o 2+ weeks of intermittent fatigue, shortness of breath and chest pain on exertion. It reminds her of symptoms prior to her first stent. She notes she saw Cardiology end of October and catheterization is planned for 11/29 was also started on 30 of isosorbide but her symptoms seem to be getting worse. She took her aspirin and brilinta this AM. MD complaint: chest pain Pertinent past history: coronary artery disease and [employer] Onset (ago): week(s) (2+) Timing of current episode: episodic Prior episodes: Yes Onset: during exertion Pain location: substernal Pain radiation: left arm Severity: moderate Quality: tightness and aching Exacerbating factors: exertion Associated symptoms: dyspnea Treatment prior to arrival: aspirin Related Data Home Medications Medication Instructions Recorded Confirmed fluoxetine 40 mg capsule 40 mg PO DAILY 04/05/23 08/22/23 levothyroxine 75 mcg tablet 75 mcg PO DAILY 04/05/23 08/22/23 ticagrelor 90 mg tablet (Brilinta) 90 mg PO BID 04/23/23 08/22/23 Previous Rx's Medication Instructions Recorded aspirin 81 mg tablet,delayed 81 mg PO DAILY #60 tabs 04/05/23 release (Ecotrin Low Strength) atorvastatin 40 mg tablet 40 mg PO DAILY #90 tabs 04/11/23 nitroglycerin 0.4 mg sublingual 0.4 mg sublingual Q5M PRN chest 04/11/23 tablet pain #25 tabs metoprolol tartrate 25 mg tablet 25 mg PO BID #180 tabs 10/09/23 isosorbide mononitrate 30 mg 30 mg PO DAILY #30 tabs 11/01/23 tablet,extended release 24 hr Allergies Allergy/AdvReac Type Severity Reaction Status Date / Time No Known Allergies Allergy Verified 05/11/23 11:16 [No Known Allergies*] Review of Systems 2 Review of Systems: Constitutional : No Weight loss, No Fever, No Chills ENT/Mouth : No sore throat, No Rhinorrhea Eyes: No Eye Pain, No Swelling Cardiovascular : pos Chest Pain, pos SOB, no Dyspnea on Exertion, No Orthopnea, No Edema, No Palpitations Respiratory : No Cough, No Sputum Gastrointestinal : no Nausea, No Vomiting, No Diarrhea, No abdominal Pain, No Hematochezia, No Melena Genitourinary : No Dysuria, No Urinary Frequency Musculoskeletal : No joint pain, No Myalgias, No Joint Swelling Skin : No Skin Lesions, No rash Neuro : No Weakness, No Numbness, No Dizziness, No Headache All other systems reviewed and are negative [facility] Past Medical History Attestation statement: The following information was validated with the patient. Source: old records reviewed Medical History Chest pain Crescendo angina Essential hypertension Mood disorder Coronary artery disease Surgical History Stented coronary artery S/P cardiac cath Hx of hysterectomy for benign disease Family History Family History Father CAD (coronary artery disease) Mother Mitral valve prolapse Social History Social History Alcohol intake: never Patient Tobacco Use Status: Never used Tobacco Use of substances other than those prescribed or required for medical reasons: No Advance Directives: Yes Advance Directives Information Provided: No Advance Directives on File: No Patient : No Physical Exam 2 Vital Signs: Vital Signs: Last Vital Signs Temp 98.3 F 11/08/23 14:13 Pulse 62 11/08/23 14:14 Resp 14 11/08/23 14:13 BP 119/63 11/08/23 14:14 Pulse Ox 99 11/08/23 14:13 O2 Del Method Room Air 11/08/23 14:13 BMI result Body Mass Index 33.1 Appearance: Alert. Oriented X3. No acute distress. Eyes: Pupils equal, round and reactive to light. ENT: Pharynx normal. Neck: Normal inspection. Neck supple. CVS: Normal heart rate and rhythm. Pulses normal. Respiratory: No respiratory distress. Breath sounds normal. Abdomen: Soft and nontender. Skin: Skin warm and dry. Normal skin color. Normal skin turgor. Extremities: No lower extremity edema. No calf ttp Neuro: Oriented X 3. No motor deficit. No sensory deficit. Course Course Course Narrative: pain free after SL nitro Medications Administered Discontinued Medications Generic Name Dose Route Start Last Admin Trade Name Hazel PRN Reason Stop Dose Admin Nitroglycerin 0.4 mg 11/08/23 12:20 11/08/23 14:14 Nitroglycerin 0.4 Mg Tab.Subl SUBLINGUAL 11/08/23 12:21 0.4 mg ONCE ONE Administration Medical Decision Making Medical Decision Making [facility] Narrative: 53 yo female with PMH of CAD has FLOR to LAD and known ds in diagonal branch of RCA and mild ds in circumflex here with 2+ weeks of worsening chest pain and dyspnea on exertion that reminds her of her prior events leading up to FLOR in LAD at this time will obtain EKG, serial troponins, CXR and consult cardiology. She already took her aspirin and brilinta this AM. Concern for worsening angina, unstable angina and ACS. Has mild pain at rest right now SL nitro ordered Differential Diagnosis Differential Diagnoses: The differential diagnosis associated with the presentation includes angina, UA, ACS Admission/Observation Consideration of admission/observation: Escalation of care including admission/observation considered will admit and transfer to cath tomorrow Consult Healthcare Provider Management of the patient was discussed with: Hospitalist (will admit) and Elementary Instructional Coach Dr. Mary - admit and transfer for cath tomorrow Lab Data [facility] Lab Attestation statement: I reviewed the patient's lab results. 11/08/23 08:02 11/08/23 08:02 Labs: Lab Results 11/08/23 11/08/23 11/08/23 Range/Units 08:02 09:49 14:12 WBC 8.0 (4.8-10.8) X10*3/uL RBC 4.84 (4.20-5.50) X10*6/uL Hgb 14.0 (12.0-16.0) g/dl Hct 41.4 (37.0-47.0) % MCV 85.5 (80.0-98.0) fL MCH 28.9 (27.0-33.0) pg MCHC 33.8 (31.0-35.0) g/dl RDW 14.0 (11.0-16.0) % Plt Count 331 (160-400) X10*3/uL MPV 10.2 (9.4-12.3) fL Immature Gran % (Auto) 0.2 (0.0-0.4) % Neut % (Auto) 74.8 H (45-73) % Lymph % (Auto) 16.8 L (20-40) % [place] % (Auto) 5.5 (2-11) % Eos % (Auto) 2.2 (0-4) % Baso % (Auto) 0.5 (0-2) % Lymph # (Auto) 1.4 (1.2-4.9) X10*3/uL [place] # (Auto) 0.4 (0.1-1.2) X10*3/uL Eos # (Auto) 0.2 (0.0-0.4) X10*3/uL Baso # (Auto) 0.0 (0.0-0.2) X10*3/uL Abs Immat Gran (auto) 0.02 (0.00-0.03) X10*3/uL Absolute Neuts (auto) 6.0 (2.0-8.3) x10*3/uL Absolute Nucleated RBC 0.000 (0.0-0.012) X10*3/uL Nucleated RBC % (auto) 0.0 (0.0-0.2) /100WBC Sodium 142 (135-145) mmol/L Potassium 4.2 (3.3-5.1) mmol/L Chloride 108 (96-108) mmol/L Carbon Dioxide 24 (22-29) mmol/L Anion Gap 14 (12-20) BUN 12 (9-16) mg/dL Creatinine 0.80 (0.5-1.4) mg/dL Estim Creat Clear Calc 101.1 Estimated GFR > 60 Random Glucose 109 (60-115) mg/dL Calcium 9.5 (8.4-10.2) mg/dL Troponin I High Sens < 2.7 < 2.7 < 2.7 (<3.5-17.0) ng/L B-Natriuretic Peptide 31 (<100) pg/mL COVID-19 (OTIS) Negative (Negative) COVID-19 Clin Com See Note Independent Interpretation I performed an independent interpretation of an: EKG and Plain X-Ray (normal ) Interpretation: Rate: 72 Rhythm: NSR [place]: normal Normal P waves. Normal ANDREW. Normal QRS complex. ST T wave : no DIANE, inverted t waves in III qTC: normal prior studies: no change from priors The study has been interpreted contemporaneously by me. . Radiology Impression Discussion of test interpretation with radiology: I have reviewed the radiologist's reading. Independent Historian Clinical information obtained from an independent historian. History obtained from or confirmed by: Spouse External Record Review External record reviewed: Inpatient record and Office record Critical Care Time Critical Care Time Critical Care Time: Yes Total Critical Care Time: 40 Attestation: repeat labs, medical consult, admission, heparin drip, review of records I attest to this time spent taking care of the patient Discharge Plan Discharge Clinical Impression: Angina at rest Chest pain Qualifiers: Chest pain type: precordial pain Qualified Code(s): R07.2 - Precordial pain Patient Disposition: Admitted As Inpatient
--- NOTE | 2023-11-08 13:46 | PC.NURSE ---
pt difficult stick, provider aware, waiting to administer nitro until pt has an US placed line. us trained nurse attempting
[2023-11-08] MEDS: Nitroglycerin 0.4 MG TAB.SUBL SUBLINGUAL (14:14)
[2023-11-08 14:41] LABS: COVID-19 Test Negative (Negative); IDNOW Serial# 152EDE1D
[2023-11-08 14:44] LABS: B Type Natriuretic Peptide 31 pg/mL (<100)
[2023-11-08 14:45] LABS: Troponin-I High Sensitivity < 2.7 ng/L (<3.5-17.0)
--- NOTE | 2023-11-08 15:26 | PC.NURSE ---
this nurse as well as area secretary have attempted to get ahold of phlebotomy for PTT draw as patient is a difficulty stick and has an US guided IV, we were unsuccessful in contacting them, ED Director was notified and she is attempting to get ahold of them as well.
--- NOTE | 2023-11-08 15:29 | PHA.MEDREC ---
Pharmacy Consult ? Medication Reconciliation Pharmacy has completed the medication reconciliation. Patient reported medications. Reports she uses fluoxetine as needed. Patient reported that she has not start isosorbide mononitrate due to insurance issues but is now ready to be picked up at the pharmacy. Will let hospitalist now on admission. Candelaria Nowak, PharmD
[2023-11-08 15:52] LABS: INTERNATIONAL NORM RATIO 0.9 (0.9-1.1); Prothrombin Time 11.2 SEC (11.1-13.3)
[2023-11-08 15:55] LABS: PTT Heparin Drip 26.7 SEC (53-77.9)
--- NOTE | 2023-11-08 16:02 | PM.IMHP ---
History of Present Illness Date of Service: 11/08/23 Chief Complaint: chest pain 53 yo female with PMH of CAD has FLOR to LAD 04/29 and known ds in diagonal branch of RCA and mild ds in circumflex follows with Dr. Mary here with c/o 2+ weeks of intermittent fatigue, shortness of breath and chest pain on exertion. When queried she states this is similar to her last presentation. She last saw Cardiology several weeks ago and had an elective cardiac catheterization scheduled for 11/30/2023. Over the last 2-3 days she is developed worsening substernal chest pain but was hesitant presents to the emergency room. Today at the prompting of her she presented. Initial EKG and enzymes were flat. Pain relieved with nitroglycerin. States she was prescribed oral nitrates however they have not been claimed that the pharmacy. This point in time she was started on a heparin drip and will be admitted for likely transfer to [facility] when available for cardiac catheterization Review of Systems Review of Systems: Denies chest pain (resolved) Denies shortness of breath Denies nausea vomiting diarrhea Denies fever chills Denies orthopnea/leg swelling [facility] Medical History Chest pain Crescendo angina Essential hypertension Mood disorder Coronary artery disease Family History Father CAD (coronary artery disease) Mother Mitral valve prolapse Surgical History Stented coronary artery S/P cardiac cath Hx of hysterectomy for benign disease Social History Alcohol intake: never Patient Tobacco Use Status: Never used Tobacco Use of substances other than those prescribed or required for medical reasons: No Advance Directives: Yes Advance Directives Information Provided: No Advance Directives on File: No Patient : No Meds Allergies Allergy/AdvReac Type Severity Reaction Status Date / Time No Known Allergies Allergy Verified 05/11/23 11:16 [No Known Allergies*] Active Medications: Current Medications Acetaminophen (Acetaminophen 325 Mg Tablet) 650 mg PO Q6H PRN PRN Reason: Pain, Mild (Pain Scale 1-3) Acetaminophen (Acetaminophen Supp 650 Mg Supp.Rect) 650 mg [place] Q6H PRN PRN Reason: Pain, Mild (Pain Scale 1-3) Al Hydroxide/Mg Hydroxide (Magnesium Hydrox/Alum Hydrox 30 Ml Oral.Susp) 30 ml PO Q4H PRN PRN Reason: Heartburn/Nausea Aspirin (Aspirin Enteric Coated 81 Mg Tablet.Dr) 81 mg PO DAILY [facility] Atorvastatin Calcium (Atorvastatin Calcium 40 Mg Tablet) 40 mg PO DAILY [facility] Fluoxetine HCl (Fluoxetine Hcl 20 Mg Capsule) 40 mg PO DAILY PRN PRN Reason: Anxiety Heparin Sodium (Porcine) (Heparin Sodium,Porcine 5,000 Unit/Ml Vial) 4,100 unit 40 unit/kg (4100 unit) IVPUSH PROTOCOL BOLUS PRN; Protocol PRN Reason: 40 unit/kg - Heparin Protocol Heparin Sodium (Porcine) (Heparin Sodium,Porcine 5,000 Unit/Ml Vial) 8,100 unit 80 unit/kg (8100 unit) IVPUSH PROTOCOL BOLUS PRN; Protocol PRN Reason: 80 unit/kg - Heparin Protocol Heparin Sodium/Sodium Chloride (Heparin Sodium,Porcine/1/2ns) 25,000 unit in 250 mls @ 0 mls/hr IVCONT .Q0M [facility]; Protocol Isosorbide Mononitrate (Isosorbide Mononitrate 30 Mg Tab.Er.24h) 30 mg PO DAILY [facility]; Protocol Levothyroxine Sodium (Levothyroxine Sodium 75 Mcg Tablet) 75 mcg PO DAILY@0600 [facility] Metoprolol Tartrate (Metoprolol Tartrate 25 Mg Tablet) 25 mg PO BID [facility]; Protocol Multivitamins/Vitamin C (Multivitamin Tablet) 1 tab PO DAILY [facility] Nitroglycerin (Nitroglycerin 0.4 Mg Tab.Subl) 0.4 mg SUBLINGUAL Q5M PRN PRN Reason: chest pain Ondansetron HCl (Ondansetron Hcl 4 Mg/2 Ml Vial) 4 mg IVPUSH Q8H PRN PRN Reason: Nausea and Vomiting Sodium Chloride (0.9 % Sodium Chloride Flush 3 Ml Syringe) 3 ml IVFLUSH QSHIFT [facility] Ticagrelor (Ticagrelor 90 Mg Tablet) 90 mg PO BID [facility] Home Medications Medication Instructions Recorded Confirmed Last Taken Type fluoxetine 40 mg capsule 40 mg PO DAILY PRN Anxiety 04/05/23 11/08/23 Unknown History levothyroxine 75 mcg tablet 75 mcg PO DAILY 04/05/23 11/08/23 11/08/23 History ticagrelor 90 mg tablet (Brilinta) 90 mg PO BID 04/23/23 11/08/23 11/08/23 History multivitamin 1 tab PO DAILY 11/08/23 11/08/23 11/08/23 History Physical Exam Vital Signs and Narrative: Vital Signs: Last Vital Signs Temp 98.3 F 11/08/23 15:46 Pulse 118 H 11/08/23 15:46 Resp 20 11/08/23 15:46 BP 135/66 11/08/23 15:46 Pulse Ox 99 11/08/23 14:13 O2 Del Method Room Air 11/08/23 15:46 BMI result Body Mass Index 33.1 Const: Other: Awake alert chest pain-free at this time Neck: Other: No JVD with bed at 35 degrees Resp: Other: Clear to auscultation bilaterally no rales rhonchi or wheezes Cardio: Other: No S4; positive S1-S2; no S3 murmurs rubs or gallops. Regular rate and rhythm GI: Other: Soft nontender nondistended normoactive bowel sounds Neuro: Other: Cranial nerves 2-12 grossly intact as tested. Motor is 5/5 all extremities. Sensation is intact. Cognition appropriate. Gait not observed Extrem: Other: No edema bilaterally Results Labs 11/08/23 08:02 11/08/23 08:02 Labs: Laboratory Results - last 24 hr 11/08/23 11/08/23 11/08/23 08:02 09:49 14:12 MCV 85.5 MCH 28.9 MCHC 33.8 RDW 14.0 Plt Count 331 MPV 10.2 Immature Gran % (Auto) 0.2 Neut % (Auto) 74.8 H Lymph % (Auto) 16.8 L [place] % (Auto) 5.5 Eos % (Auto) 2.2 Baso % (Auto) 0.5 Lymph # (Auto) 1.4 [place] # (Auto) 0.4 Eos # (Auto) 0.2 Baso # (Auto) 0.0 Abs Immat Gran (auto) 0.02 Absolute Neuts (auto) 6.0 Absolute Nucleated RBC 0.000 Nucleated RBC % (auto) 0.0 PT INR aPTT Heparin Protocol Anion Gap 14 Estim Creat Clear Calc 101.1 Estimated GFR > 60 Random Glucose 109 Calcium 9.5 Troponin I High Sens < 2.7 < 2.7 < 2.7 B-Natriuretic Peptide 31 COVID-19 (OTIS) Negative COVID-19 Clin Com See Note 11/08/23 15:40 MCV MCH MCHC RDW Plt Count MPV Immature Gran % (Auto) Neut % (Auto) Lymph % (Auto) [place] % (Auto) Eos % (Auto) Baso % (Auto) Lymph # (Auto) [place] # (Auto) Eos # (Auto) Baso # (Auto) Abs Immat Gran (auto) Absolute Neuts (auto) Absolute Nucleated RBC Nucleated RBC % (auto) PT 11.2 INR 0.9 aPTT Heparin Protocol 26.7 L Anion Gap Estim Creat Clear Calc Estimated GFR Random Glucose Calcium Troponin I High Sens B-Natriuretic Peptide COVID-19 (OTIS) COVID-19 Clin Com Imaging Radiologist's Impressions: Impressions Chest X-Ray 11/08/23 07:59 IMPRESSION: Unremarkable examination with no interval change Assessment and Plan (1) Unstable angina: Status: Acute (2) Coronary artery disease: Qualifiers: Coronary Disease-Associated Artery/Lesion type: unspecified vessel or lesion type [place] vs. transplanted heart: [place] heart Associated angina: with unstable angina Qualified Code(s): I25.110 - Atherosclerotic heart disease of [place] coronary artery with unstable angina pectoris Status: Acute (3) Essential hypertension: Status: Acute Plan 53-year-old female with past medical history significant with coronary artery disease status post FLOR to LAD 04/29 at with known disease and diagonal branch of RCA and mild disease and circumflex presents with about 2 weeks of worsening intermittent fatigue and shortness of breath that culminated with last 48 hours of intermittent chest pain with exertion and at rest. She had elective cardiac catheterization scheduled for 12/25/2023 however presented today. EKG and enzymes are unremarkable at this time. 1. Unstable angina in backdrop of known coronary artery disease -heparin drip as ordered -start oral nitrates as prescribed; continue Brilinta/Lopressor/statin as ordered -serial enzymes -cardiac consult in a.m.; Dr. Mary aware. Question transfer to [facility] for urgent catheterization 2. Hypertension -acceptable control on current therapies -adjust as indicated 3. Hypothyroidism -continue outpatient therapies Full code Heparin Patient will require at least 2 midnights going forward of inpatient hospitalization to treat unstable angina with IV heparin and specialist consultation. This can not be achieved a lesser acute setting Quality Stroke Does the patient have a stroke diagnosis?: No VTE Prior VTE?: No VTE Risk Level:: Medical - moderate - high VTE Device Contraindication: Treatment Not Indicated VTE Drug Contraindication: N/A - Med Ordered
[2023-11-08] MEDS: Heparin Sodium,Porcine/1/2NS 25,000 UNIT/250 ML IV.SOLN 10.17 UNIT IVCONT (16:14)
[2023-11-08] MEDS: Heparin Sodium,Porcine 5,000 UNIT/ML VIAL 4000 UNIT IVPUSH (16:17)
[2023-11-08] MEDS: 0.9 % Sodium Chloride Flush 3 ML SYRINGE IVFLUSH (16:20)
[2023-11-08] MEDS: Isosorbide Mononitrate 30 MG TAB.ER.24H PO (16:23)
--- NOTE | 2023-11-08 17:02 | PC.NURSE ---
patient a&ox3, radiographer cardiac catheterization nsr/sb, vitals stable, heparin drip recently started per order, pt medicated per order, family at bedside, call torres within reach, will continue to monitor
--- NOTE | 2023-11-08 18:16 | MHC.EDTECH ---
Patient given dinner tray
--- NOTE | 2023-11-08 19:14 | MHC.CM.PN ---
CM met with admitted patient with bed assignment pending. A&Ox4. Lives with . 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 No DME/services. She/her. PCP verified. No HCP. HCP reviewed, completed and signed. Copies given to patient and [place] [facility] [place] [facility] [employer] HCP/ Abel Campa ([phone]). THRIVE screening negative.D/C plan: [place] [facility] [place]. Will need BLS. Heparin. CM will follow for discharge needs.
--- NOTE | 2023-11-08 19:35 | PC.NURSE ---
Pt ca&ox4, no signs of distress. Pt requested and assisted with clothing (bra) removal. Pt denies pain at this time. Pts family at bedside. Plan of care ongoing.
[2023-11-08] MEDS: Ticagrelor 90 MG TABLET PO (21:41)
[2023-11-08] MEDS: Metoprolol Tartrate 25 MG TABLET PO (21:41)
--- NOTE | 2023-11-08 21:41 | PC.NURSE ---
pt medicated per mar, pt tolerated well with water.
[2023-11-08] MEDS: Acetaminophen 325 MG TABLET 650 MG PO (23:16)
[2023-11-08 23:17] LABS: PTT Heparin Drip 52.4 SEC (53-77.9)
[2023-11-09] MEDS: Heparin Sodium,Porcine 5,000 UNIT/ML VIAL 4100 UNIT IVPUSH (00:21)
[2023-11-09] MEDS: 0.9 % Sodium Chloride Flush 3 ML SYRINGE IVFLUSH (00:25)
[2023-11-09 04:00] VITALS: BP 123/63; PULSE 80; RESP 20; TEMP 37.2; O2SAT 97
[2023-11-09 06:22] LABS: MANUAL DIFF FLAG NO
[2023-11-09 06:25] LABS: Basophils Percent Auto 0.4 % (0-2); Eosinophils Absolute Auto 0.2 X10*3/uL (0.0-0.4); Eosinophils Percent Auto 1.9 % (0-4); Hematocrit 38.3 % (37.0-47.0); Hemoglobin 12.9 g/dl (12.0-16.0); Imm Gran Abs Auto 0.03 X10*3/uL (0.00-0.03); Imm Gran Pct Auto 0.4 % (0.0-0.4); Lymphocytes Absolute Auto 1.9 X10*3/uL (1.2-4.9); Lymphocytes Percent Auto 24.5 % (20-40); Mean Corpuscular HGB Conc 33.7 g/dl (31.0-35.0); Mean Corpuscular Volume 86.1 fL (80.0-98.0); Mean Platelet Volume 10.3 fL (9.4-12.3); Monocytes Absolute Auto 0.4 X10*3/uL (0.1-1.2); Monocytes Percent Auto 5.1 % (2-11); Neutrophils Absolute Auto 5.2 x10*3/uL (2.0-8.3); Neutrophils Percent Auto 67.7 % (45-73); Platelet Count 309 X10*3/uL (160-400); Red Blood Count 4.45 X10*6/uL (4.20-5.50); Red Cell Distribution Width 14.1 % (11.0-16.0); White Blood Count 7.7 X10*3/uL (4.8-10.8)
[2023-11-09] MEDS: Levothyroxine Sodium 75 MCG TABLET PO (06:29)
[2023-11-09 06:30] LABS: Prothrombin Time 11.8 SEC (11.1-13.3)
[2023-11-09 06:41] LABS: Alanine Aminotransferase 35 U/L (0-31); Albumin Level 3.8 g/dL (3.5-5.0); Alkaline Phosphatase 116 U/L (39-117); Anion Gap 12 (12-20); Aspartate Amino Transferase 25 U/L (5-31); Bilirubin Total 0.6 mg/dL (0.0-1.0); Blood Urea Nitrogen 12 mg/dL (9-16); Calcium 9.2 mg/dL (8.4-10.2); Carbon Dioxide 24 mmol/L (22-29); Chloride 108 mmol/L (96-108); Creatinine Clr Calc Pharmacy 111.8; Estimated Glomerular Filt Rate > 60; Glucose Random 98 mg/dL (60-115); Sodium 140 mmol/L (135-145); Total Protein 6.8 g/dL (6.5-8.0)
[2023-11-09 07:14] LABS: PTT Heparin Drip 110.6 SEC (53-77.9)
[2023-11-09 07:56] VITALS: BP 112/63; PULSE 63; RESP 18; TEMP 36.9; O2SAT 95
[2023-11-09 08:13] LABS: Troponin-I High Sensitivity < 2.7 ng/L (<3.5-17.0)
[2023-11-09] MEDS: Isosorbide Mononitrate 30 MG TAB.ER.24H PO (09:36)
[2023-11-09] MEDS: Ticagrelor 90 MG TABLET PO (09:36)
[2023-11-09] MEDS: Aspirin Enteric Coated 81 MG TABLET.DR PO (09:36)
[2023-11-09] MEDS: Multivitamin TABLET 1 TAB PO (09:36)
[2023-11-09] MEDS: Atorvastatin Calcium 40 MG TABLET PO (09:36)
[2023-11-09] MEDS: Metoprolol Tartrate 25 MG TABLET PO (09:41)
--- NOTE | 2023-11-09 10:32 | P.CONCA_ITS ---
History of Present Illness History of Present Illness Date of Service: 11/09/23 Requesting physician: Ramesh Crowell Consult reason: other (Unstable angina) Chief complaint: unstable angina Narrative: I was consulted to see Brandy as she has been having progressive symptoms of chest discomfort. She last April because of progressive anginal symptoms underwent stenting to mid LAD for 99% occlusion with [id number] disease in the RCA. There was left with medical treatment. Patient has been taking all her medications. Over the last month or so has been having progressive symptoms of exertional chest tightness again which she thinks her similar to prior to her stenting to the LAD. She is very concerned about this. We had seen her as outpatient was scheduled for catheterization on November 28 however she has been having progressive symptoms including having symptoms at rest on Monday. She said the symptoms lasted for couple hours did not take any medications did not come to the emergency room. Subsequently yesterday she was having recurrent chest discomfort and came to the hospital. She says the symptoms similar to her prior angina. She got sublingual nitroglycerin in the emergency room and the symptoms relieved. Her troponins are negative and less than 2.7. EKG shows ischemic changes. Cardiology was consulted to manage her unstable angina. She was started on IV heparin. She is currently taking dual antiplatelet therapy as well as high-intensity statin other medications. She is remained hemodynamically stable without any significant arrhythmias on cardiac telemetry. She is remained chest pain-free. Review of Systems 2 Constitutional: Constitutional: Reports no additional constitutional complaints Eyes: Eyes: Reports no additional eye complaints Cardiovascular: Cardiovascular: Reports chest pain at rest, Reports chest pain with activity, Denies leg edema, Denies lightheadedness and Denies dyspnea Respiratory: Respiratory: Reports no additional respiratory complaints and Denies dyspnea Gastrointestinal: Gastrointestinal: Reports no additional gastrointestinal complaints Genitourinary: Genitourinary: Reports no additional female genitourinary complaints Musculoskeletal: Musculoskeletal: Reports no additional musculoskeletal complaints Neurologic: Reports system reviewed and no additional complaints, except as documented Psychiatric: Psychiatric: Reports no additional psychiatric complaints Endocrine: Endocrine: Reports no additional endocrine complaints [facility] Past Medical History Medical History Chest pain Crescendo angina Essential hypertension Mood disorder Coronary artery disease Family History Family History Father CAD (coronary artery disease) Mother Mitral valve prolapse Surgical History Surgical History Stented coronary artery S/P cardiac cath Hx of hysterectomy for benign disease Social History Social History Household Members: Spouse and Children Housing: House Do you presently have visiting nurse or other home services: No Alcohol intake: never Patient Tobacco Use Status: Never used Tobacco Use of substances other than those prescribed or required for medical reasons: No Have you been hit, kicked, punched, or otherwise hurt by someone within the past year? If so, by whom?: No Do you feel safe in your current relationship?: Yes Is there a partner from a previous relationship who is making you feel unsafe now?: No Are you made to feel afraid or neglected: No Advance Directives: Yes Advance Directives Information Provided: Yes Advance Directives on File: Yes Advance Directives Date on File: 11/08/23 Do you have thoughts of harming others: None Do you have a plan to hurt others: No Plan Recently lost weight without trying: No Patient : No : No Poor oral hygiene: No Meds Allergies Allergy/AdvReac Type Severity Reaction Status Date / Time No Known Allergies Allergy Verified 05/11/23 11:16 [No Known Allergies*] Active Medications: Current Medications Acetaminophen (Acetaminophen 325 Mg Tablet) 650 mg PO Q6H PRN PRN Reason: Pain, Mild (Pain Scale 1-3) Last Admin: 11/08/23 23:16 Dose: 650 mg Acetaminophen (Acetaminophen Supp 650 Mg Supp.Rect) 650 mg NE Q6H PRN PRN Reason: Pain, Mild (Pain Scale 1-3) Al Hydroxide/Mg Hydroxide (Magnesium Hydrox/Alum Hydrox 30 Ml Oral.Susp) 30 ml PO Q4H PRN PRN Reason: Heartburn/Nausea Aspirin (Aspirin Enteric Coated 81 Mg Tablet.Dr) 81 mg PO DAILY [facility] Last Admin: 11/09/23 09:36 Dose: 81 mg Atorvastatin Calcium (Atorvastatin Calcium 40 Mg Tablet) 40 mg PO DAILY [facility] Last Admin: 11/09/23 09:36 Dose: 40 mg Fluoxetine HCl (Fluoxetine Hcl 20 Mg Capsule) 40 mg PO DAILY PRN PRN Reason: Anxiety Heparin Sodium (Porcine) (Heparin Sodium,Porcine 5,000 Unit/Ml Vial) 4,100 unit 40 unit/kg (4100 unit) IVPUSH PROTOCOL BOLUS PRN; Protocol PRN Reason: 40 unit/kg - Heparin Protocol Last Admin: 11/09/23 00:21 Dose: 4,100 unit Heparin Sodium (Porcine) (Heparin Sodium,Porcine 5,000 Unit/Ml Vial) 8,100 unit 80 unit/kg (8100 unit) IVPUSH PROTOCOL BOLUS PRN; Protocol PRN Reason: 80 unit/kg - Heparin Protocol Heparin Sodium/Sodium Chloride (Heparin Sodium,Porcine/1/2ns) 25,000 unit in 250 mls @ 0 mls/hr IVCONT .Q0M [facility]; Protocol Last Titration: 11/09/23 09:35 Dose: 8 units/kg/hr, 8.14 mls/hr Isosorbide Mononitrate (Isosorbide Mononitrate 30 Mg Tab.Er.24h) 30 mg PO DAILY [facility]; Protocol Last Admin: 11/09/23 09:36 Dose: 30 mg Levothyroxine Sodium (Levothyroxine Sodium 75 Mcg Tablet) 75 mcg PO DAILY@0600 [facility] Last Admin: 11/09/23 06:29 Dose: 75 mcg Metoprolol Tartrate (Metoprolol Tartrate 25 Mg Tablet) 25 mg PO BID [facility]; Protocol Last Admin: 11/09/23 09:41 Dose: 25 mg Multivitamins/Vitamin C (Multivitamin Tablet) 1 tab PO DAILY [facility] Last Admin: 11/09/23 09:36 Dose: 1 tab Nitroglycerin (Nitroglycerin 0.4 Mg Tab.Subl) 0.4 mg SUBLINGUAL Q5M PRN PRN Reason: chest pain Ondansetron HCl (Ondansetron Hcl 4 Mg/2 Ml Vial) 4 mg IVPUSH Q8H PRN PRN Reason: Nausea and Vomiting Sodium Chloride (0.9 % Sodium Chloride Flush 3 Ml Syringe) 3 ml IVFLUSH QSHIFT [facility] Last Admin: 11/09/23 09:42 Dose: Not Given Ticagrelor (Ticagrelor 90 Mg Tablet) 90 mg PO BID [facility] Last Admin: 11/09/23 09:36 Dose: 90 mg Home Medications ?Medication ?Instructions ?Recorded ?Confirmed ?Last Taken ?Type fluoxetine 40 mg capsule 40 mg PO DAILY PRN Anxiety 04/05/23 11/08/23 Unknown History levothyroxine 75 mcg tablet 75 mcg PO DAILY 04/05/23 11/08/23 11/08/23 History ticagrelor 90 mg tablet (Brilinta) 90 mg PO BID 04/23/23 11/08/23 11/08/23 History multivitamin 1 tab PO DAILY 11/08/23 11/08/23 11/08/23 History Physical Exam 2 Vital Signs: Vital Signs: Last Vital Signs Temp 98.5 F 11/09/23 07:56 Pulse 63 11/09/23 07:56 Resp 18 11/09/23 07:56 BP 112/63 11/09/23 07:56 Pulse Ox 95 11/09/23 07:56 O2 Del Method Room Air 11/09/23 07:56 BMI result Body Mass Index 33.1 Const: General: cooperative, comfortable, no acute distress, alert, awake and Physically active Nutritional Appearance: obese Orientation/consciousness: patient oriented x3 Limitations: no limitations HEENT: Head: Yes normocephalic and Yes atraumatic Neck: Neck: Yes trachea midline, Yes supple and Yes no JVD Resp: Effort & Inspection: normal respiratory effort Auscultation: clear to auscultation bilaterally Cardio: Jugular venous distension: no JVD Palpation: normal PMI Rate: r egular rate Rhythm: regular rhythm Heart sounds: S1 normal heart sound present, S2 normal heart sound present, no click, no gallops, no murmurs and no rubs GI: Auscultation: normal bowel sounds Skin: General skin exam: no rashes or lesions noted Neuro: General: patient oriented x3 and no focal motor deficits Extrem: General: Yes no clubbing, cyanosis or edema Objective Labs and Meds 11/09/23 06:18 11/09/23 06:18 Lab results: Laboratory Results - last 24 hr 11/08/23 11/08/23 11/08/23 14:12 15:40 22:56 WBC RBC Hgb Hct MCV MCH MCHC RDW Plt Count MPV Immature Gran % (Auto) Neut % (Auto) Lymph % (Auto) [place] % (Auto) Eos % (Auto) Baso % (Auto) Lymph # (Auto) [place] # (Auto) Eos # (Auto) Baso # (Auto) Abs Immat Gran (auto) Absolute Neuts (auto) Absolute Nucleated RBC Nucleated RBC % (auto) PT 11.2 INR 0.9 aPTT Heparin Protocol 26.7 L 52.4 L D Sodium Potassium Chloride Carbon Dioxide Anion Gap BUN Creatinine Estim Creat Clear Calc Estimated GFR Random Glucose Calcium Total Bilirubin AST ALT Alkaline Phosphatase Troponin I High Sens < 2.7 B-Natriuretic Peptide 31 Total Protein Albumin COVID-19 (OTIS) Negative COVID-19 Clin Com See Note 11/09/23 11/09/23 06:18 08:14 WBC 7.7 RBC 4.45 Hgb 12.9 Hct 38.3 MCV 86.1 MCH 29.0 MCHC 33.7 RDW 14.1 Plt Count 309 MPV 10.3 Immature Gran % (Auto) 0.4 Neut % (Auto) 67.7 Lymph % (Auto) 24.5 [place] % (Auto) 5.1 Eos % (Auto) 1.9 Baso % (Auto) 0.4 Lymph # (Auto) 1.9 [place] # (Auto) 0.4 Eos # (Auto) 0.2 Baso # (Auto) 0.0 Abs Immat Gran (auto) 0.03 Absolute Neuts (auto) 5.2 Absolute Nucleated RBC 0.000 Nucleated RBC % (auto) 0.0 PT 11.8 INR 1.0 aPTT Heparin Protocol 110.6 H* D 53.0 D Sodium 140 Potassium 4.0 Chloride 108 Carbon Dioxide 24 Anion Gap 12 BUN 12 Creatinine 0.73 Estim Creat Clear Calc 111.8 Estimated GFR > 60 Random Glucose 98 Calcium 9.2 Total Bilirubin 0.6 AST 25 ALT 35 H Alkaline Phosphatase 116 Troponin I High Sens < 2.7 B-Natriuretic Peptide Total Protein 6.8 Albumin 3.8 COVID-19 (OTIS) COVID-19 Clin Com Assessment and Plan (1) Unstable angina: Status: Acute Unstable angina sounding symptoms. Other possibility includes GI related symptoms and/or anxiety related symptoms. However given her prior stenting and premature atherosclerosis she needs to proceed with a cardiac catheterization. This was discussed with her. The risks, benefits, alternatives to cardiac catheterization were discussed. Continue IV heparin. Patient understands agrees and arrangements for transfer to [facility] have been started. Continue dual antiplatelet therapy. Continue high-intensity statin therapy. Continue metoprolol therapy. Will follow with her as outpatient after cardiac catheterization. Thank you for allowing me to partake in the care Procedures Date of Service Date of Service: 11/09/23
--- NOTE | 2023-11-09 11:43 | PM.DS ---
DS: Providers Provider Date of Service: 11/09/23 Date of admission: 11/08/23 15:59 Date of discharge: 11/09/23 Primary care physician: Seymour Mitchell MD Consults: 11/08/23 16:02 Consult to Cardiology Routine Consulting [place] [facility] Reason for consultation: Unstable angina Has provider been notified: Yes DS: Diagnosis Discharge Diagnosis (1) Unstable angina: Status: Acute (2) Essential hypertension: Status: Acute (3) Coronary artery disease: Status: Acute DS: Summary Hospital Course Hospital Course: 53 yo female with PMH of CAD has FLOR to LAD 04/29 and known ds in diagonal branch of RCA and mild ds in circumflex follows with Dr. Mary here with c/o 2+ weeks of intermittent fatigue, shortness of breath and chest pain on exertion. When queried she states this is similar to her last presentation. She last saw Cardiology several weeks ago and had an elective cardiac catheterization scheduled for 11/30/2023. Over the last 2-3 days she is developed worsening substernal chest pain but was hesitant presents to the emergency room. Today at the prompting of her she presented. Initial EKG and enzymes were flat. Pain relieved with nitroglycerin. States she was prescribed oral nitrates however they have not been claimed that the pharmacy. This point in time she was started on a heparin drip and will be admitted for likely transfer to [facility] when available for cardiac catheterization Hospital Course Admitted to telemetry where monitor failed to show any acute dysrhythmias. She was seen by Cardiology (please see note for details) started on heparin drip. She has had no chest pain since admission and is without EKG changes. Troponins have remained flat. At this point in time she is medically acceptable for transfer to [facility] for cardiac catheterization and further treatment as deemed appropriate. Time Attestation Discharge Coordination Time (in mins): 35 Quality: Safe Use of Opioids Does Pt have an Active Cancer Diagnosis on the Problem List?: No Quality: Stroke Does the patient have a stroke diagnosis?: No Physical Exam Vital Signs: Vital Signs: Last Vital Signs Temp 98.5 F 11/09/23 07:56 Pulse 63 11/09/23 07:56 Resp 18 11/09/23 07:56 BP 112/63 11/09/23 07:56 Pulse Ox 95 11/09/23 07:56 O2 Del Method Room Air 11/09/23 07:56 BMI result Body Mass Index 33.1 Const: Other: Awake alert chest pain-free at this time Neck: Other: No JVD with bed at 35 degrees Resp: Other: Clear to auscultation bilaterally no rales rhonchi or wheezes Cardio: Other: No S4; positive S1-S2; no S3 murmurs rubs or gallops. Regular rate and rhythm GI: Other: Soft nontender nondistended normoactive bowel sounds Neuro: Other: Cranial nerves 2-12 grossly intact as tested. Motor is 5/5 all extremities. Sensation is intact. Cognition appropriate. Gait not observed Extrem: Other: No edema bilaterally DS: Data Data Completed and Pending Labs on day of discharge: Laboratory Results - last 24 hr 11/08/23 11/08/23 11/08/23 14:12 15:40 22:56 WBC RBC Hgb Hct MCV MCH MCHC RDW Plt Count MPV Immature Gran % (Auto) Neut % (Auto) Lymph % (Auto) [place] % (Auto) Eos % (Auto) Baso % (Auto) Lymph # (Auto) [place] # (Auto) Eos # (Auto) Baso # (Auto) Abs Immat Gran (auto) Absolute Neuts (auto) Absolute Nucleated RBC Nucleated RBC % (auto) PT 11.2 INR 0.9 aPTT Heparin Protocol 26.7 L 52.4 L D Sodium Potassium Chloride Carbon Dioxide Anion Gap BUN Creatinine Estim Creat Clear Calc Estimated GFR Random Glucose Calcium Total Bilirubin AST ALT Alkaline Phosphatase Troponin I High Sens < 2.7 B-Natriuretic Peptide 31 Total Protein Albumin COVID-19 (OTIS) Negative COVID-19 Clin Com See Note 11/09/23 11/09/23 06:18 08:14 WBC 7.7 RBC 4.45 Hgb 12.9 Hct 38.3 MCV 86.1 MCH 29.0 MCHC 33.7 RDW 14.1 Plt Count 309 MPV 10.3 Immature Gran % (Auto) 0.4 Neut % (Auto) 67.7 Lymph % (Auto) 24.5 [place] % (Auto) 5.1 Eos % (Auto) 1.9 Baso % (Auto) 0.4 Lymph # (Auto) 1.9 [place] # (Auto) 0.4 Eos # (Auto) 0.2 Baso # (Auto) 0.0 Abs Immat Gran (auto) 0.03 Absolute Neuts (auto) 5.2 Absolute Nucleated RBC 0.000 Nucleated RBC % (auto) 0.0 PT 11.8 INR 1.0 aPTT Heparin Protocol 110.6 H* D 53.0 D Sodium 140 Potassium 4.0 Chloride 108 Carbon Dioxide 24 Anion Gap 12 BUN 12 Creatinine 0.73 Estim Creat Clear Calc 111.8 Estimated GFR > 60 Random Glucose 98 Calcium 9.2 Total Bilirubin 0.6 AST 25 ALT 35 H Alkaline Phosphatase 116 Troponin I High Sens < 2.7 B-Natriuretic Peptide Total Protein 6.8 Albumin 3.8 COVID-19 (OTIS) COVID-19 Clin Com Discharge Plan Discharge Anticipated Discharge Date/Time: 11/09/23 11:40 Patient Disposition: Xfer Acute [facility] Hospital Discharge Diagnosis: Unstable angina Referrals: Seymour Mitchell MD [Primary Care Provider] - 1 Week Discharge Medications: New heparin(porcine) in 0.45% NaCl 25,000 unit/250 mL Parenteral Solution 25,000 unit continuous IV infusion .Q0M Qty: 6000 0RF heparin (porcine) 5,000 unit/mL Solution 4,100 unit IVPUSH PROTOCOL BOLUS PRN (Reason: 40 Unit/Kg - Heparin Protocol) Qty: 100 0RF heparin (porcine) 5,000 unit/mL Solution 8,100 unit IVPUSH PROTOCOL BOLUS PRN (Reason: 80 Unit/Kg - Heparin Protocol) Qty: 100 0RF Continued atorvastatin 40 mg tablet 40 mg PO DAILY Qty: 90 3RF nitroglycerin 0.4 mg tablet, sublingual 0.4 mg sublingual Q5M PRN (Reason: chest pain) Qty: 25 2RF Rx Instructions: do not exceed 3 doses per episode metoprolol tartrate 25 mg tablet 25 mg PO BID Qty: 180 3RF Brilinta 90 mg tablet 90 mg PO BID multivitamin Tablet 1 tab PO DAILY levothyroxine 75 mcg tablet 75 mcg PO DAILY fluoxetine 40 mg capsule 40 mg PO DAILY PRN (Reason: Anxiety) aspirin [Ecotrin Low Strength] 81 mg tablet,delayed release (DR/EC) 81 mg PO DAILY Qty: 60 1RF isosorbide mononitrate 30 mg tablet extended release 24 hr 30 mg PO DAILY Qty: 30 3RF Discharge Orders: Discharge Order (Routine); Ordered 11/09/23 Ordered By: Ramesh Crowell Diet: Advance to usual diet Activity on Discharge: As tolerated Stand Alone Forms: Patient Portal Discharge page Print Language: Bulgarian Care Plan Goals: Continue all meds including heparin drip as per transfer sheet Health Concerns: Transfer to [facility] for cardiac catheterization Plan of Treatment: As per receiving facility Assessment: See discharge summary
[2023-11-09 11:48] VITALS: BP 117/67; PULSE 75; RESP 18; TEMP 36.8; O2SAT 96
--- NOTE | 2023-11-09 12:02 | MHC.CM.PN ---
Patient will be transferred to [facility] today.
[2023-11-09 15:27] VITALS: BP 114/62; PULSE 66; RESP 16; TEMP 36.6; O2SAT 99
[2023-11-09] MEDS: Heparin Sodium,Porcine/1/2NS 25,000 UNIT/250 ML IV.SOLN 8.14 UNIT IVCONT (15:43)
== END 2023-11-09 16:35 | disposition short-term general hospital (02) | DRG 198 ==
LOC: HO.ED 15:04 → HO.EDOVER 16:20 → HO.IMC 20:58
PROVIDERS: Internal Medicine; Physician Assistant Medical; Admitting Provider Hospitalist; Emergency Provider Emergency Medicine; PCP Internal Medicine; Visit Provider Hospitalist
DX: I25.110 Atherosclerotic heart disease of native coronary artery with unstable angina pectoris (principal); I10 Essential (primary) hypertension; Z95.5 Presence of coronary angioplasty implant and graft; Z20.822 Contact with and (suspected) exposure to COVID-19; Z79.82 Long term (current) use of aspirin; Z79.890 Hormone replacement therapy; Z79.899 Other long term (current) drug therapy
CPT/HCPCS: 36415; 71046; 80048; 80053; 83880; 84484; 85025; 85027; 85610; 85730; 87635; 93005; 99285; J1644

== ENCOUNTER → 2023-11-08 07:20 | Outpatient (BNV) | payer OTHER, SELFPAY | PROVIDERS: PCP Internal Medicine; Visit Provider Internal Medicine Cardiovascular Disease | DX: R07.9 Chest pain, unspecified (principal) | CPT/HCPCS: 93010 ==

== ENCOUNTER → 2023-11-08 08:00 | Outpatient (BNV) | payer OTHER, SELFPAY | PROVIDERS: Emergency Provider Emergency Medicine; PCP Internal Medicine; Visit Provider Hospitalist | DX: I11.9 Hypertensive heart disease without heart failure (principal); I25.110 Atherosclerotic heart disease of native coronary artery with unstable angina pectoris | CPT/HCPCS: 99223; 99239 ==

== ENCOUNTER → 2023-11-08 15:59 | Outpatient (BNV) | payer OTHER, SELFPAY | PROVIDERS: Admitting Provider Hospitalist; Emergency Provider Emergency Medicine; PCP Internal Medicine; Visit Provider Internal Medicine Cardiovascular Disease | DX: I20.0 Unstable angina (principal) | CPT/HCPCS: 99222 ==

== ENCOUNTER → 2023-11-09 23:59 | Outpatient (BNV) | payer OTHER, SELFPAY | PROVIDERS: PCP Internal Medicine; Visit Provider Internal Medicine Cardiovascular Disease | DX: I25.110 Atherosclerotic heart disease of native coronary artery with unstable angina pectoris (principal) | CPT/HCPCS: 92928; 93458; 99152 ==

== ENCOUNTER 2023-12-14 13:19 | Outpatient (AMB) | payer OTHER, SELFPAY ==
--- NOTE | 2023-12-14 13:53 | A.OFFVIS_ITS ---
Vital Signs 12/14/23 13:54 Height 5 ft 9 in Weight 218 lb 4.122 oz BMI 32.2 BP 135/83 Blood Pressure Location Lt brachial Position Sitting Pulse 77 Pulse Source Pulse Oximeter Intake Visit Reasons: 2 wk s/p cath Allergies No Known Allergies [No Known Allergies*] Allergy (Verified 05/11/23 11:16) Medication List - Last Reconciled 12/14/23 by Johanny Cohn NP aspirin (Ecotrin Low Strength) 81 mg PO DAILY atorvastatin 40 mg PO DAILY bisoprolol fumarate 5 mg PO DAILY fluoxetine 40 mg PO DAILY PRN isosorbide mononitrate ER 30 mg PO DAILY levothyroxine 75 mcg PO DAILY multivitamin 1 tab PO DAILY nitroglycerin 0.4 mg sublingual Q5M PRN ticagrelor (Brilinta) 90 mg PO BID HPI Comments Details: 53-year-old female presents today after cardiac cathetization. She reports she has still been feeling like she cannot get a good breath but otherwise she feels much better. She had a cardiac cathetization 04/2023 and the chest pains never resolved and she got a cardiac catherization again on 11/09/2023. In 2022 she had a mid LAD proximal subsection 99% stenosis and 11/09/2023 she had a mid subsection of the LAD with 99% stenosis and thrombus. She denies any fever, chills, tenderness, or drainage from the right radial site. [facility] Medical History Shortness of breath Coronary artery disease Angina at rest Chest pain Chest pain Crescendo angina Essential hypertension Mood disorder Surgical History (Updated 12/15/23 @ 13:04 by Johanny Cohn NP) S/P cardiac catheterization Stented coronary artery S/P cardiac cath Hx of hysterectomy for benign disease Family History Father CAD (coronary artery disease) Mother Mitral valve prolapse Other Stented coronary artery Social History Household Members: Spouse and Children Housing: House Do you presently have visiting nurse or other home services: No Alcohol intake: never Patient Tobacco Use Status: Never used Tobacco Advance Directives Date on File: 11/08/23 Review of Systems Const Denies weakness ENT Denies dizziness Card Denies chest pain, Denies chest pain with activity, Denies syncope, Denies rapid heart rate, Denies pedal edema, Denies edema, Denies leg edema, Denies lightheadedness, Denies palpitations, Denies dyspnea, Denies dyspnea on exertion and Denies orthopnea Resp Denies cough, Denies dyspnea and Denies dyspnea on exertion GI Denies hematochezia and Denies change in stool character Musc Denies abnormal gait, Denies muscle cramps, Denies muscle weakness, Denies numbness, Denies radiating pain into limb and Denies tingling Neuro Denies abnormal gait, Denies dizziness, Denies syncope, Denies numbness, Denies tingling and Denies weakness Endo Denies palpitations Physical Exam Vital Signs: Last Vital Signs Pulse 77 12/14/23 13:54 BP 135/83 12/14/23 13:54 BMI result Body Mass Index 32.2 Const General: healthy appearing and no acute distress Orientation/consciousness: patient oriented x3 HEENT Head: Yes normal to inspection Eyes General: appearance normal, both eyes and all related structures Neck Neck: Yes normal visual inspection Chest Chest palpation & inspection: normal inspection of the chest Resp Effort & Inspection: normal respiratory effort Auscultation: clear to auscultation bilaterally Cardio Jugular venous distension: no JVD Palpation: normal PMI Rate: regular rate Rhythm: regular rhythm Heart sounds: S1 normal heart sound present, S2 normal heart sound present, no click, no gallops, no murmurs and no rubs GI Inspection: Yes normal to inspection Palpation (GI): Soft to palpation Skin General skin exam: no rashes or lesions noted Neuro General: patient oriented x3 Extrem General: Yes normal to inspection Psych Appearance: grossly normal Assessment & Plan Assessment & Plan (1) S/P cardiac catheterization: Comment: 11/09/[address] Morel for unstable angina Cardiac Arteries and Lesion Findings LMCA: Normal. LAD: First diagonal has diffuse disease 65 to 70% stenosis. Mild focal in-stent restenosis also noted in the proximal to mid LAD stent.There is a previous stent on Mid LAD Proximal subsection. Lesion in Mid LAD: Mid subsection.99% stenosis 6 mm length. Pre procedure KAVIN II flow was noted. Good runoff was present. The lesion was diagnosed as Moderate Risk (B). The lesion was discrete and eccentric.The lesion showed moderate tortuosity.Culprit lesion. LCx: Minimal luminal irregularities. RCA: Mild luminal irregularities (<30%). Code(s): Z98.890 - Other specified postprocedural states Category: Surgical (2) Coronary artery disease: Code(s): I25.10 - Atherosclerotic heart disease of [place] coronary artery without angina pectoris Category: Medical Qualifiers: Coronary Disease-Associated Artery/Lesion type: unspecified vessel or lesion type [place] vs. transplanted heart: [place] heart Associated angina: with unstable angina Qualified Code(s): I25.110 - Atherosclerotic heart disease of [place] coronary artery with unstable angina pectoris (3) Shortness of breath: Code(s): R06.02 - Shortness of breath Category: Medical Plan Right radial site healing appropriately. Continue ASA 81mg QD, Brilinta 90mg BID for at minimum 12 months. Lifestyle modificatons such as blood pressure control and heart healthy diet. Cardiac rehab ordered. Will repeat lipid panel. Last LDL was 01/24/2019 and was 132. Goal less than 70. Ongoing shortness of breath / unable to get a good breath. Will refer to pulmonary. She reports this has been an ongoing issue for many years. Orders: Orders CA echo transthoracic complete 12/14/23 I25.110 - Atherosclerotic heart disease of [place] coronary artery with unstable angina pectoris Lipid Panel 12/14/23 I25.110 - Atherosclerotic heart disease of [place] coronary artery with unstable angina pectoris Basic Metabolic Panel 12/14/23 I25.110 - Atherosclerotic heart disease of [place] coronary artery with unstable angina pectoris Referrals Pulmonary Medicine Referral I25.110 - Atherosclerotic heart disease of [place] coronary artery with unstable angina pectoris, R06.02 - Shortness of breath Coding Level of Care Code Est Pt Level 4 (28703) Diagnoses S/P cardiac catheterization Z98.890 Coronary artery disease involving [place] heart with unstable angina pectoris, unspecified vessel or lesion type I25.110 Coronary Disease-Associated Artery/Lesion type: unspecified vessel or lesion type [place] vs. transplanted heart: [place] heart Associated angina: with unstable angina Shortness of breath R06.02
[2023-12-14 13:54] VITALS: BP 135/83; PULSE 77; BMI 32.2
== END 2023-12-14 14:23 | disposition home or self-care (01) ==
PROVIDERS: PCP Internal Medicine; Visit Provider Nurse Practitioner
DX: Z98.890 Other specified postprocedural states (principal); I25.110 Atherosclerotic heart disease of native coronary artery with unstable angina pectoris; R06.02 Shortness of breath
CPT/HCPCS: 99214

== ENCOUNTER → 2023-12-14 13:19 | Outpatient (BNVA) | payer OTHER, SELFPAY | PROVIDERS: PCP Internal Medicine; Visit Provider Nurse Practitioner | DX: I25.110 Atherosclerotic heart disease of native coronary artery with unstable angina pectoris (principal); R06.02 Shortness of breath; Z98.890 Other specified postprocedural states; Z79.82 Long term (current) use of aspirin; Z79.899 Other long term (current) drug therapy ==

== ENCOUNTER 2024-01-08 07:00 | Outpatient (RCR) | payer OTHER, SELFPAY | END 2024-01-25 12:36 | disposition home or self-care (01) | LOC: HO.CR 07:00 | PROVIDERS: PCP Internal Medicine; Visit Provider Internal Medicine Cardiovascular Disease | DX: I25.110 Atherosclerotic heart disease of native coronary artery with unstable angina pectoris (principal); Z95.5 Presence of coronary angioplasty implant and graft | CPT/HCPCS: 93798 ==

== ENCOUNTER 2024-01-17 08:16 | Emergency (ER) | payer OTHER, SELFPAY ==
--- NOTE | ~2024-01-17 | XR_ITS ---
EXAMINATION: XR CHEST CLINICAL INFORMATION: Chest pain and shortness of breath COMPARISON: Prior chest radiograph 11/08/2023 TECHNIQUE: 2 views of the chest were obtained. FINDINGS: Lungs grossly clear. Slight elevation of the right hemidiaphragm. No change from 11/08/2023. Heart and pulmonary vessels normal. No pleural effusion. XR/XR chest 2V IMPRESSION: Unremarkable examination.
--- NOTE | 2024-01-17 08:17 | ECG_ITS ---
Test Reason : chest pain Blood Pressure : / mmHG Vent. Rate : 079 BPM Atrial Rate : 079 BPM P-R Int : 160 ms QRS Dur : 084 ms QT Int : 370 ms P-R-T Axes : 050 038 041 degrees QTc Int : 424 ms Normal sinus rhythm Normal ECG When compared with ECG of 08-NOV-2023 07:24, No significant change was found Referred By: Generic ED Physician Electronically Signed By:LEATHA REYNOLDS
[2024-01-17 08:21] VITALS: BP 147/79; PULSE 80; RESP 18; TEMP 36.4; O2SAT 94; BMI 31.7
[2024-01-17 08:35] LABS: MANUAL DIFF FLAG NO
[2024-01-17 08:36] LABS: Basophils Absolute Auto 0.1 X10*3/uL (0.0-0.2); Basophils Percent Auto 0.6 % (0-2); Eosinophils Absolute Auto 0.2 X10*3/uL (0.0-0.4); Hematocrit 40.2 % (37.0-47.0); Imm Gran Abs Auto 0.03 X10*3/uL (0.00-0.03); Imm Gran Pct Auto 0.4 % (0.0-0.4); Lymphocytes Absolute Auto 1.1 X10*3/uL (1.2-4.9); Lymphocytes Percent Auto 13.1 % (20-40); Mean Corpuscular HGB Conc 34.8 g/dl (31.0-35.0); Mean Corpuscular Hemoglobin 29.8 pg (27.0-33.0); Mean Corpuscular Volume 85.5 fL (80.0-98.0); Mean Platelet Volume 9.7 fL (9.4-12.3); Monocytes Absolute Auto 0.4 X10*3/uL (0.1-1.2); Monocytes Percent Auto 4.6 % (2-11); Neutrophils Absolute Auto 6.3 x10*3/uL (2.0-8.3); Neutrophils Percent Auto 79.3 % (45-73); Platelet Count 342 X10*3/uL (160-400); Red Cell Distribution Width 13.7 % (11.0-16.0)
[2024-01-17 08:42] LABS: INTERNATIONAL NORM RATIO 0.9 (0.9-1.1); Prothrombin Time 10.8 SEC (11.1-13.3)
[2024-01-17 08:45] LABS: Partial Thromboplastin Time 31.1 SEC (26.0-36.8)
[2024-01-17 08:56] LABS: Anion Gap 15 (12-20); Blood Urea Nitrogen 14 mg/dL (9-16); Calcium 9.6 mg/dL (8.4-10.2); Carbon Dioxide 21 mmol/L (22-29); Chloride 108 mmol/L (96-108); Creatinine Clr Calc Pharmacy 104.2; Estimated Glomerular Filt Rate > 60; Glucose Random 110 mg/dL (60-115); Potassium 4.2 mmol/L (3.3-5.1); Sodium 140 mmol/L (135-145)
--- NOTE | 2024-01-17 08:58 | ED.CHESTPAIN ---
HPI - Chest Pain General Chief Complaint: Chest Pain Stated Complaint: Heaviness in chest, numbness both arms Time Seen by Provider: 01/17/24 08:57 History of Present Illness ED Provider: Dr. Chace Marino HPI narrative: 53 year old female with PMH of CAD has FLOR to LAD 04/29 and known ds in diagonal branch of RCA and mild ds in circumflex follows with Dr. Mary, repeat cardiac catheterization 11/25/2023 for CLANCY, intermittent fatigue, chest pain with exertion revealed a 99% lesion distal to the 1st stent in the LAD which was felt to be secondary to ruptured plaque. She was treated with FLOR stent and medication changes (bisoprolol and isosorbide) who presents to the emergency department for evaluation of chest pain, ?acid reflux ?numbness of both arms, legs face, and lightheadedness. Patient states she was feeling well, however she did not sleep overnight since she had to let her dogs out at around 02:30 hours. She states that she was up all night worrying about life stressors. She woke up this morning and took her medications as usual. She was then in the shower when she felt a ?acid reflux sensation ?which she describes as a burning sensation in her throat and a bad taste in the back of her mouth as if she were vomiting up her pills. She states she does not usually get heartburn symptoms. She then developed a tightness in her chest which she said was 6/10. Symptoms started at 06:45 hours. Symptoms persisted but have improved and her chest tightness is now 3/10. She states that the numbness is improved. She states that since her 2nd cardiac catheterization and stent her dyspnea on exertion is also improved. Related Data Home Medications ?Medication ?Instructions ?Recorded ?Confirmed fluoxetine 40 mg capsule 40 mg PO DAILY PRN Anxiety 04/05/23 11/08/23 levothyroxine 75 mcg tablet 75 mcg PO DAILY 04/05/23 11/08/23 ticagrelor 90 mg tablet (Brilinta) 90 mg PO BID 04/23/23 11/08/23 multivitamin 1 tab PO DAILY 11/08/23 11/08/23 bisoprolol fumarate 5 mg tablet 5 mg PO DAILY 12/14/23 Previous Rx's ?Medication ?Instructions ?Recorded aspirin 81 mg tablet,delayed 81 mg PO DAILY #60 tabs 04/05/23 release (Ecotrin Low Strength) atorvastatin 40 mg tablet 40 mg PO DAILY #90 tabs 04/11/23 nitroglycerin 0.4 mg sublingual 0.4 mg sublingual Q5M PRN chest 04/11/23 tablet pain #25 tabs isosorbide mononitrate 30 mg 30 mg PO DAILY #30 tabs 11/01/23 tablet,extended release 24 hr Allergies Allergy/AdvReac Type Severity Reaction Status Date / Time No Known Allergies Allergy Verified 01/17/24 08:21 [No Known Allergies*] Review of Systems Review of Systems: Yes all other systems are reviewed and are negative [facility], [facility] Past Medical History [facility] Narrative: Social history: She denies tobacco, alcohol and drug use. She was her is here in the emergency department with her. Medical History Shortness of breath Coronary artery disease Angina at rest Chest pain Chest pain [place] angina Essential hypertension Mood disorder Surgical History S/P cardiac catheterization Stented coronary artery S/P cardiac cath Hx of hysterectomy for benign disease Family History Family History Father CAD (coronary artery disease) Mother Mitral valve prolapse Other Stented coronary artery Social History Social History Household Members: Spouse and Children Housing: House Do you presently have visiting nurse or other home services: No Alcohol intake: never Patient Tobacco Use Status: Never used Tobacco Smoked in Last 30 Days: No Use of substances other than those prescribed or required for medical reasons: No Advance Directives: Yes Advance Directives on File: Yes Advance Directives Date on File: 11/08/23 Physical Exam Vital Signs: Vital Signs: Last Vital Signs Temp 97.1 F 01/17/24 12:16 Pulse 81 01/17/24 12:16 Resp 16 01/17/24 12:16 BP 127/79 01/17/24 12:16 Pulse Ox 95 01/17/24 12:16 O2 Del Method Room Air 01/17/24 12:16 BMI result Body Mass Index 31.7 Vital signs were normal Exam: General: Awake, alert in no distress Head: Normocephalic, atraumatic EENT: PERRL, Lids normal, sclera normal, conjunctiva normal, nose normal , ears normal, throat without erythema or exudates Neck: Supple, no adenopathy Lung: breath sounds symmetric, no wheezing, rales or rhonchi Chest: symmetric movement, nontender Heart: regular rate and rhythm, normal S1, S2 no murmurs or rubs Abdomen: soft, non-tender, nondistended, normal bowel sounds Back: no vertebral tenderness, no CVAT Extremities: no deformities, moves all extremities symmetrically Neuro: Awake, alert, oriented, normal speech, cranial nerves intact, moves all extremities symmetrically Psych: Pleasant, cooperative Medications Administered Discontinued Medications Generic Name Dose Route Start Last Admin Trade Name Freq PRN Reason Stop Dose Admin Lorazepam 0.5 mg 01/17/24 09:24 01/17/24 09:39 Lorazepam 0.5 Mg Tablet PO 01/17/24 09:25 0.5 mg ONCE ONE Administration Medical Decision Making Medical Decision Making MDM Narrative: 53 year old female with PMH of CAD has FLOR to LAD 04/29 and known ds in diagonal branch of RCA and mild ds in circumflex follows with Dr. Mary, repeat cardiac catheterization 11/25/2023 for CLANCY, intermittent fatigue, chest pain with exertion revealed a 99% lesion distal to the 1st stent in the LAD which was felt to be secondary to ruptured plaque. She was treated with FLOR stent and medication changes (bisoprolol and isosorbide) who presents to the emergency department for evaluation of chest pain, ?acid reflux ?numbness of both arms, legs face, and lightheadedness which came on shortly after she took her morning pills and while she was taking shower. She describes the pain is in acid reflux sensation followed by bad taste in her mouth. She then developed lightheadedness, numbness in her face, and arms. Pain was 6/10 at its worse and persistent therefore she came to the emergency department for evaluation. Patient's vital signs were normal. Physical examination was unremarkable. Differential diagnosis: ?Includes but is not limited to myocardial infarction, myocardial ischemia, hyperventilation syndrome, dyspepsia, GERD, electrolyte abnormalities, anemia Following evaluation was ordered: CBC, BNP, troponin at time 0 and 3 hour troponin, EKG Patient was initially treated with the following: Ativan 0.5 mg orally Course: 13:01 My independent interpretation patient's laboratory evaluation as follows: CBC was normal. CMP was normal. Coags were normal. Patient's 1st troponin was below detectable limits and 3 hour repeat troponin was also below detectable limits. Twelve EKG was unremarkable with no significant change compared to the previous At this time I suspect that the patient may have had mild pill esophagitis causing her dyspepsia and then causing her to have hyperventilation syndrome. I did discuss this with the patient with her . The patient was discharged home with printed and verbal instructions and advised to follow-up with her providers for re-evaluation Admission/Observation Consideration of admission/observation: Escalation of care including admission/observation considered Lab Data MDM Lab Attestation statement: I reviewed the patient's lab results. 01/17/24 08:31 01/17/24 08:31 Labs: Lab Results 01/17/24 01/17/24 Range/Units 08:31 11:45 WBC 8.0 (4.8-10.8) X10*3/uL RBC 4.70 (4.20-5.50) X10*6/uL Hgb 14.0 (12.0-16.0) g/dl Hct 40.2 (37.0-47.0) % MCV 85.5 (80.0-98.0) fL MCH 29.8 (27.0-33.0) pg MCHC 34.8 (31.0-35.0) g/dl RDW 13.7 (11.0-16.0) % Plt Count 342 (160-400) X10*3/uL MPV 9.7 (9.4-12.3) fL Immature Gran % (Auto) 0.4 (0.0-0.4) % Neut % (Auto) 79.3 H (45-73) % Lymph % (Auto) 13.1 L (20-40) % [place] % (Auto) 4.6 (2-11) % Eos % (Auto) 2.0 (0-4) % Baso % (Auto) 0.6 (0-2) % Lymph # (Auto) 1.1 L (1.2-4.9) X10*3/uL [place] # (Auto) 0.4 (0.1-1.2) X10*3/uL Eos # (Auto) 0.2 (0.0-0.4) X10*3/uL Baso # (Auto) 0.1 (0.0-0.2) X10*3/uL Abs Immat Gran (auto) 0.03 (0.00-0.03) X10*3/uL Absolute Neuts (auto) 6.3 (2.0-8.3) x10*3/uL Absolute Nucleated RBC 0.000 (0.0-0.012) X10*3/uL Nucleated RBC % (auto) 0.0 (0.0-0.2) /100WBC PT 10.8 L (11.1-13.3) SEC INR 0.9 (0.9-1.1) APTT 31.1 (26.0-36.8) SEC Sodium 140 (135-145) mmol/L Potassium 4.2 (3.3-5.1) mmol/L Chloride 108 (96-108) mmol/L Carbon Dioxide 21 L (22-29) mmol/L Anion Gap 15 (12-20) BUN 14 (9-16) mg/dL Creatinine 0.79 (0.5-1.4) mg/dL Estim Creat Clear Calc 104.2 Estimated GFR > 60 Random Glucose 110 (60-115) mg/dL Calcium 9.6 (8.4-10.2) mg/dL Troponin I High Sens < 2.7 < 2.7 (<3.5-17.0) ng/L Independent Interpretation I performed an independent interpretation of an: EKG Interpretation: My independent interpretation patient's 12 EKG done at 08:15 hours is as follows: Normal sinus rhythm with a rate of 79, normal [place] interval, QRS duration QTC interval, no ST segment elevation, no ST segment depression, no PACs, no PVCs this is a normal EKG. Compared to EKG dated 11/08/2023 there has no significant change. My independent interpretation patient's two view chest x-ray is as follows: No acute disease Radiology Impression Discussion of test interpretation with radiology: I have reviewed the radiologist's reading. Radiologist Impression: XR chest 2V IMPRESSION: Unremarkable examination. Dictated By: Adan Stevens MD Independent Historian Clinical information obtained from an independent historian. History obtained from or confirmed by: Spouse External Record Review External record reviewed: Inpatient record and Office record Chronic Conditions Patient?s care impacted by: Other (Coronary disease) Discharge Plan Discharge Clinical Impression: Hyperventilation syndrome Chest pain Qualifiers: Chest pain type: unspecified Qualified Code(s): R07.9 - Chest pain, unspecified Patient Disposition: Home, Self-Care Instructions: Hyperventilation (ED) Additional Instructions: Your EKG was unchanged from your previous EKGs . Your laboratory evaluation was unremarkable. Your high sensitive troponin I initially was below detectable limits in your 3 hour repeat was also below detectable limits. This is very reassuring suggesting that you did not have a heart attack or heart damage as the cause of your chest pain. I believe that your chest pain was caused by ?pill esophagitis ?which cause you to have indigestion and then this triggered hyperventilation syndrome which is a natural reaction to pain. Continue taking medications as prescribed by your providers. If you find that you were getting heartburn like symptoms then take Pepcid (famotidine) 20 mg once a day for 1 month. Follow-up with your doctor in 2 days. Please return to the emergency department if your symptoms get worse or if you develop any symptoms that are concerning to you. Prescriptions: No Action atorvastatin 40 mg tablet 40 mg PO DAILY Qty: 90 3RF nitroglycerin 0.4 mg tablet, sublingual 0.4 mg sublingual Q5M PRN (Reason: chest pain) Qty: 25 2RF Rx Instructions: do not exceed 3 doses per episode Brilinta 90 mg tablet 90 mg PO BID multivitamin Tablet 1 tab PO DAILY levothyroxine 75 mcg tablet 75 mcg PO DAILY fluoxetine 40 mg capsule 40 mg PO DAILY PRN (Reason: Anxiety) aspirin [Ecotrin Low Strength] 81 mg tablet,delayed release (DR/EC) 81 mg PO DAILY Qty: 60 1RF isosorbide mononitrate 30 mg tablet extended release 24 hr 30 mg PO DAILY Qty: 30 3RF bisoprolol fumarate 5 mg tablet 5 mg PO DAILY Print Language: Macedonian
[2024-01-17 09:12] VITALS: BP 126/85; PULSE 62; RESP 16; O2SAT 97
[2024-01-17 09:16] LABS: Troponin-I High Sensitivity < 2.7 ng/L (<3.5-17.0)
--- NOTE | 2024-01-17 09:16 | PC.NURSE ---
pt reports episodes of chest pain/pressure along with SOB while in the shower this morning. Has significant cardiac hx of recent cardiac cath w/ stent placement. Pressure at this time is 3/10 in substernal area, dyspnea has resolved. Denies any recent illnesses, cough, fever, abd pain. Alert and oriented, breathing even and unlabored, skin warm and dry. NSR on bedside ekg monitor.
[2024-01-17] MEDS: LORazepam 0.5 MG TABLET PO (09:39)
[2024-01-17 10:04] VITALS: BP 134/61; PULSE 64; RESP 16; TEMP 36.7; O2SAT 95
[2024-01-17 12:08] LABS: Troponin-I High Sensitivity < 2.7 ng/L (<3.5-17.0)
[2024-01-17 12:16] VITALS: BP 127/79; PULSE 81; RESP 16; TEMP 36.2; O2SAT 95
[2024-01-17 13:13] VITALS: BP 127/79; PULSE 81; RESP 16; TEMP 36.2; O2SAT 95
== END 2024-01-17 13:14 | disposition home or self-care (01) ==
PROVIDERS: Emergency Provider Emergency Medicine Emergency Medical Services; PCP Internal Medicine
DX: F45.8 Other somatoform disorders (principal); R07.9 Chest pain, unspecified
CPT/HCPCS: 36415; 71046; 80048; 84484; 85025; 85610; 85730; 93005; 99283; 99285

== ENCOUNTER → 2024-01-17 08:17 | Outpatient (BNV) | payer OTHER, SELFPAY | PROVIDERS: Emergency Provider Emergency Medicine Emergency Medical Services; PCP Internal Medicine; Visit Provider Internal Medicine | DX: R07.9 Chest pain, unspecified (principal) | CPT/HCPCS: 93010 ==

== ENCOUNTER → 2024-03-07 15:20 | Outpatient (REF) | payer OTHER, SELFPAY ==
--- NOTE | 2024-03-07 15:22 | CA_ITS ---
Transthoracic Echocardiogram Patient (Last, First, Middle): Brandy Campa R Gender: Female Date of : 1970 Age: 53 Procedure Date: 03/07/2024 Procedure Type: Transthoracic Echocardiogram Location: OP Height: 177.8 cm Weight: 99.79 kg BSA: 2.17 m2 Heart Rate: bpm BP: 127 / 79 mmHg Piano Regulator Inspector: QUENTIN Referring MD: Johanny Cohn FISCAL ACCOUNTING CLERK Senior Marketing Specialist: Shashank Mary MD Symptoms: I25.110 - Atherosclerotic heart disease of [place] coronary artery with u... Study Quality: Adequate ECG Rhythm: Sinus with extra beats Conclusions: - 1. Normal LV ejection fraction 60 65% with RCA territory wall motion abnormality with impaired relaxation filling pattern 2. Normal cardiac valvular Doppler 3. Normal RV systolic pressure 4. No pericardial effusion Findings Left Ventricle Normal left ventricular size, thickness, and systolic function. The visually estimated ejection fraction is between 60-65%. Spectral Doppler is indicative of an impaired relaxation filling pattern. E/E prime ratio is between 8 and 15 consistent with indeterminate filling pressures. Wall Motion Rest Echo Findings The inferoseptal wall and basal inferior segment are hypokinetic. All other scored wall segments showed normal motion. Right Ventricle Normal right ventricular cavity size and systolic function. Atria Both atria are normal in size. There is no evidence of interatrial shunt. Aortic Valve Normal aortic valve structure and function. There is no aortic valve stenosis. There is no aortic valve regurgitation. Mitral Valve Normal mitral valve structure and function. There is trace mitral valve regurgitation. There is no mitral valve stenosis. Pulmonic Valve The pulmonic valve is likely normal. There is no pulmonic valve regurgitation. Tricuspid Valve Normal tricuspid valve structure. There is trace tricuspid valve regurgitation. The right ventricular systolic pressure is normal. The right ventricular systolic pressure is 23 mmHg. Normal right atrial pressure. There is no evidence of pulmonary hypertension. Great Vessels The pulmonary artery was not well visualized. There is no dilatation of the ascending aorta measuring 3.00 cm. Venous The inferior vena cava is normal in size and collapses greater than 50% with inspiration. Pericardium/Pleural There is no evidence of pericardial effusion. Prior Study Comparison Changes noted compared to prior study dated: 05/18/2023. Regional wall motion abnormality in RCA territory noted. Diastolic dysfunction suggest impaired relaxation filling pattern Measurements 2D Linear Measurements IVSd: 1.10 0.6-0.9/0.6-1.0 cm LVIDd: 3.98 3.9-5.3/4.2-5.9 cm LVIDd Index: 1.83 2.4-3.2/2.2-3.1 cm/m2 LVIDs: 2.80 2.0-3.6 cm LVPWd: 1.12 0.7-1.1 cm LA Diam: 3.20 2.7-3.8/3.0-4.0 cm LAIDs Index: 1.47 1.5-2.3 cm/m2 LV Mass: 182.29 67-162/88-224 g LV Mass Index: 84.01 43-95/49-115 g/m2 LVOT Diam: 2.10 3.0+(-)1.3 cm 2D Systolic Function EF 4C: 64.70 >55% EF 2C: 56.70 >55% EF BiP: 60.60 >55% Mitral Valve MV Pk E: 0.50 MV PK A: 0.63 MV Decel Time: 195.00 E/A: 0.80 E'Lateral: 7.07 E'Medial: 7.07 E/E' Med: 7.00 E/E' Lat: 7.00 PHT: 57.00 MVA PHT: 3.86 Decel [place]: 2.55 Aortic Valve AoV Pk [place]: 1.24 AoV Mn [place]: 0.95 AoV VTI: 0.23 AoV Pk Grad: 6.00 Aov Mn Grad: 4.00 PEGGY Cont.VTI: 2.54 LVOT LVOT Pk [place]: 0.89 LVOT Mn [place]: 0.56 LVOT VTI: 0.17 LVOT Pk Grad: 3.00 LVOT Mn Grad: 2.00 LVOT Diam: 2.10 LVOT Area: 3.46 Diastolic Function MV Pk E: 0.50 MV Pk A: 0.63 E/A: 0.80 E'Medial: 7.07 E/E' Med: 7.00 E' Laterial: 7.07 E/E' Lat: 7.00 Right Ventricle TAPSE (mm): 19.50 TVS' [place]: 11.90 Tricuspid Valve TR Pk [place]: 2.24 TR Pk Grad: 20.00 RA Press: 3.00 RVSP: 23.00 Great Vessels Aorta Sinus of Valsalva: 3.41 2.0-3.5 cm Ao Asc: 3.00 2.1-3.4 cm Ao Arch: 2.90 Updated in Other Vendor System with Status of Final Shashank Mary MD electronically signed on 03/08/2024 9:58:11 AM with status of Final
== END ==
LOC: HO.CARD 15:20
PROVIDERS: PCP Internal Medicine; Visit Provider Nurse Practitioner
DX: I25.110 Atherosclerotic heart disease of native coronary artery with unstable angina pectoris (principal)
CPT/HCPCS: 93306

== ENCOUNTER → 2024-03-07 15:22 | Outpatient (BNV) | payer OTHER, SELFPAY | PROVIDERS: PCP Internal Medicine; Visit Provider Internal Medicine Cardiovascular Disease | DX: I25.110 Atherosclerotic heart disease of native coronary artery with unstable angina pectoris (principal) | CPT/HCPCS: 93306 ==

== ENCOUNTER 2024-03-14 14:53 | Outpatient (AMB) | payer OTHER, SELFPAY ==
[2024-03-14 15:14] VITALS: BP 122/62; PULSE 97; BMI 31.6
--- NOTE | 2024-03-14 15:14 | MHC.OFFVIS ---
Vital Signs 03/14/24 15:14 Height 5 ft 10 in Weight 220 lb 7.396 oz BMI 31.6 BP 122/62 Blood Pressure Location Lt brachial Position Sitting Pulse 97 Pulse Source Pulse Oximeter Intake Visit Reasons: 3m follow up/echo/ labs Allergies No Known Allergies [No Known Allergies*] Allergy (Verified 01/17/24 08:21) Medication List - Last Reconciled 03/14/24 by Johanny Cohn NP aspirin (Ecotrin Low Strength) 81 mg PO DAILY atorvastatin 40 mg PO DAILY bisoprolol fumarate 5 mg PO DAILY fluoxetine 40 mg PO DAILY PRN isosorbide mononitrate ER 30 mg PO DAILY 90 days levothyroxine 75 mcg PO DAILY multivitamin 1 tab PO DAILY nitroglycerin 0.4 mg sublingual Q5M PRN ticagrelor (Brilinta) 90 mg PO BID HPI Comments Details: 53-year-old female presents today after cardiac cathetization. She had a cardiac cathetization 04/2023 and the chest pains never resolved and she got a cardiac catherization again on 11/09/2023. In 2022 she had a mid LAD proximal subsection 99% stenosis and 11/09/2023 she had a mid subsection of the LAD with 99% stenosis and thrombus. She reports she is doing well. She is seeing Pulmonary soon for evaluation on ongoing shortness of breath. Denies any chest discomforts or palpitations or shortness of breath on exertion. She reports being compliant with her medications. She did some cardiac rehab but felt that it was too easy and felt she was not get in much out of it due to being stressed about getting to work inadequate timing. [facility] Medical History Shortness of breath Coronary artery disease Angina at rest Chest pain Chest pain Crescendo angina Essential hypertension Mood disorder Surgical History S/P cardiac catheterization Stented coronary artery S/P cardiac cath Hx of hysterectomy for benign disease Family History Father CAD (coronary artery disease) Mother Mitral valve prolapse Other Stented coronary artery Social History Household Members: Spouse and Children Housing: House Do you presently have visiting nurse or other home services: No Alcohol intake: never Patient Tobacco Use Status: Never used Tobacco Advance Directives Date on File: 11/08/23 Review of Systems Const Denies weakness ENT Denies dizziness Card Denies chest pain, Denies chest pain with activity, Denies syncope, Denies rapid heart rate, Denies pedal edema, Denies edema, Denies leg edema, Denies lightheadedness, Denies palpitations, Denies dyspnea, Denies dyspnea on exertion and Denies orthopnea Resp Denies cough, Denies dyspnea and Denies dyspnea on exertion GI Denies hematochezia and Denies change in stool character Musc Denies abnormal gait, Denies muscle cramps, Denies muscle weakness, Denies numbness, Denies radiating pain into limb and Denies tingling Neuro Denies abnormal gait, Denies dizziness, Denies syncope, Denies numbness, Denies tingling and Denies weakness Endo Denies palpitations Physical Exam Vital Signs: Last Vital Signs Pulse 97 03/14/24 15:14 BP 122/62 03/14/24 15:14 BMI result Body Mass Index 31.6 Const General: healthy appearing and no acute distress Orientation/consciousness: patient oriented x3 HEENT Head: Yes normal to inspection Eyes General: appearance normal, both eyes and all related structures Neck Neck: Yes normal visual inspection Chest Chest palpation & inspection: normal inspection of the chest Resp Effort & Inspection: normal respiratory effort Auscultation: clear to auscultation bilaterally Cardio Jugular venous distension: no JVD Palpation: normal PMI Rate: regular rate Rhythm: regular rhythm Heart sounds: S1 normal heart sound present, S2 normal heart sound present, no click, no gallops, no murmurs and no rubs GI Inspection: Yes normal to inspection Palpation (GI): Soft to palpation Skin General skin exam: no rashes or lesions noted Neuro General: patient oriented x3 Extrem General: Yes normal to inspection Psych Appearance: grossly normal Results Reviewed Results Reviewed: Conclusions: - 1. Normal LV ejection fraction 60 65% with RCA territory wall motion abnormality with impaired relaxation filling pattern 2. Normal cardiac valvular Doppler 3. Normal RV systolic pressure 4. No pericardial effusion Assessment & Plan Assessment & Plan (1) Coronary artery disease: Code(s): I25.10 - Atherosclerotic heart disease of [place] coronary artery without angina pectoris Category: Medical Qualifiers: Coronary Disease-Associated Artery/Lesion type: unspecified vessel or lesion type [place] vs. transplanted heart: [place] heart Associated angina: with unstable angina Qualified Code(s): I25.110 - Atherosclerotic heart disease of [place] coronary artery with unstable angina pectoris Plan Continue ASA 81mg QD, Brilinta 90mg BID for at minimum 12 months. Lifestyle modifications such as blood pressure control and heart healthy diet. Cardiac rehab ordered but she felt was too easy. Encouraged to exercise at home. Ongoing shortness of breath for many years. She is seeing pulmonology soon. Discussed with her that shortness of breath can be a side effect of Brilinta she states that this time she would not like to switch. At last visit I ordered a lipid panel which has not been completed yet. She will get perform soon. Echocardiogram shows normal ejection fraction of 60-65% with RCA territory wall motion abnormality but, cardiac catheterization shows mild luminal irregularities in the RCA. We will continue to medically manage. Anginal symptoms reviewed. Emergency care if needed. Coding Level of Care Code Est Pt Level 4 (08902) Diagnoses Coronary artery disease involving [place] heart with unstable angina pectoris, unspecified vessel or lesion type I25.110 Coronary Disease-Associated Artery/Lesion type: unspecified vessel or lesion type [place] vs. transplanted heart: [place] heart Associated angina: with unstable angina
== END 2024-03-14 15:51 | disposition home or self-care (01) ==
PROVIDERS: PCP Internal Medicine; Visit Provider Nurse Practitioner
DX: I25.110 Atherosclerotic heart disease of native coronary artery with unstable angina pectoris (principal)
CPT/HCPCS: 99214

== ENCOUNTER → 2024-03-14 14:53 | Outpatient (BNVA) | payer OTHER, SELFPAY | PROVIDERS: PCP Internal Medicine; Visit Provider Nurse Practitioner | DX: I25.110 Atherosclerotic heart disease of native coronary artery with unstable angina pectoris (principal); Z79.82 Long term (current) use of aspirin; Z79.899 Other long term (current) drug therapy ==

== ENCOUNTER 2024-04-25 14:34 | Outpatient (REF) | payer OTHER, SELFPAY ==
[2024-04-25 15:26] LABS: MANUAL DIFF FLAG NO
[2024-04-25 15:54] LABS: Basophils Percent Auto 0.4 % (0-2); Eosinophils Absolute Auto 0.1 X10*3/uL (0.0-0.4); Eosinophils Percent Auto 1.6 % (0-4); Hematocrit 38.8 % (37.0-47.0); Hemoglobin 13.1 g/dl (12.0-16.0); Imm Gran Abs Auto 0.04 X10*3/uL (0.00-0.03); Imm Gran Pct Auto 0.5 % (0.0-0.4); Lymphocytes Percent Auto 11.2 % (20-40); Mean Corpuscular HGB Conc 33.8 g/dl (31.0-35.0); Mean Corpuscular Hemoglobin 29.2 pg (27.0-33.0); Mean Corpuscular Volume 86.4 fL (80.0-98.0); Monocytes Absolute Auto 0.5 X10*3/uL (0.1-1.2); Monocytes Percent Auto 5.7 % (2-11); Neutrophils Absolute Auto 6.9 x10*3/uL (2.0-8.3); Neutrophils Percent Auto 80.6 % (45-73); Platelet Count 318 X10*3/uL (160-400); Red Blood Count 4.49 X10*6/uL (4.20-5.50); Red Cell Distribution Width 13.9 % (11.0-16.0); White Blood Count 8.6 X10*3/uL (4.8-10.8)
[2024-04-25 16:09] LABS: Prothrombin Time 11.7 SEC (10.9-12.4)
[2024-04-25 16:17] LABS: Anion Gap 12 (12-20); Blood Urea Nitrogen 8 mg/dL (9-16); Calcium 9.6 mg/dL (8.4-10.2); Carbon Dioxide 25 mmol/L (22-29); Chloride 108 mmol/L (96-108); Estimated Glomerular Filt Rate > 60; Glucose Random 110 mg/dL (60-115); Potassium 3.8 mmol/L (3.3-5.1); Sodium 141 mmol/L (135-145)
[2024-04-26 13:44] LABS: CRP High Sensitivity >20.0 mg/L
[2024-04-26 22:58] LABS: Class Alternaria alternata 0; Class Aspergillus fumigatus 0; Class Bermuda Grass 0; Class Birch 0; Class Cat Dander 0; Class Cladosporium herbarum 0; Class Cockroach 0; Class Common Ragweed 0; Class Cottonwood 0; Class Derm. pterony 0; Class Dermatophagoides farinae 0; Class Dog Dander 0; Class Elm 0; Class Maple Box Elder 2; Class Mountain Cedar 0; Class Mouse Urine Protein 0; Class Mugwort 0; Class Oak 0; Class Penicillium crysogenum 0; Class Rough Pigweed 0; Class Sheep Sorrel 0; Class Sycamore 0; Class Timothy Grass 0; Class Walnut Tree 0; Class White Ash 0; Class White Mulberry 0; D001 IgE D pteronyssinus <0.10 kU/L; D002 - IgE D farinae <0.10 kU/L; E001 - IgE Cat Dander <0.10 kU/L; E005 - IgE Dog Dander <0.10 kU/L; E072-IgE Mouse Urine <0.10 kU/L; G002 IgE Bermuda Grass <0.10 kU/L; G006 - IgE Timothy Grass <0.10 kU/L; I006-IgE Cockroach, German <0.10 kU/L; Immunoglobulin E 61 kU/L (<OR=114); M001 IgE Penicillium chrysogen <0.10 kU/L; M002 - IgE Cladosporium herbar <0.10 kU/L; M003 - IgE Aspergillus fumigat <0.10 kU/L; M006 - IgE Alternaria alternat <0.10 kU/L; T001 IgE Maple/Box Elder 1.37 kU/L; T003 IgE Common Silver Birch <0.10 kU/L; T006 - IgE Cedar, Mountain <0.10 kU/L; T007 - IgE Oak, White <0.10 kU/L; T008 IgE Elm, American <0.10 kU/L; T010 - IgE Walnut <0.10 kU/L; T011 - IgE Maple Leaf Sycamore <0.10 kU/L; T014 - IgE Cottonwood <0.10 kU/L; T015 - IgE Ash, White <0.10 kU/L; T070 - IgE White Mulberry <0.10 kU/L; W001 - IgE Ragweed, Short <0.10 kU/L; W006 - IgE Mugwort <0.10 kU/L; W014 IgE Pigweed, Common <0.10 kU/L; W018 IgE Sheep Sorrel <0.10 kU/L
== END 2024-04-25 14:35 | disposition home or self-care (01) ==
LOC: HO.LAB 14:34
PROVIDERS: Internal Medicine Cardiovascular Disease; PCP Internal Medicine; Referring Provider Nurse Practitioner; Visit Provider Internal Medicine Pulmonary Disease
DX: Z01.812 Encounter for preprocedural laboratory examination (principal); R07.9 Chest pain, unspecified; I25.118 Atherosclerotic heart disease of native coronary artery with other forms of angina pectoris; R06.02 Shortness of breath; R05.3 Chronic cough; J45.909 Unspecified asthma, uncomplicated; K21.9 Gastro-esophageal reflux disease without esophagitis; I25.110 Atherosclerotic heart disease of native coronary artery with unstable angina pectoris; Z91.09 Other allergy status, other than to drugs and biological substances
CPT/HCPCS: 36415; 80048; 82785; 85025; 85610; 86003; 86141

== ENCOUNTER 2024-04-25 14:34 | Outpatient (AMB) | payer OTHER, SELFPAY ==
--- NOTE | 2024-04-25 14:37 | MHC.OFFVIS ---
Vital Signs 04/25/24 14:38 Height 5 ft 10 in Weight 221 lb 9.033 oz BMI 31.8 BP 132/78 Blood Pressure Location Rt brachial Position Sitting Pulse 112 H Pulse Source Doppler Pulse Oximetry (%) 96 Oxygen Delivery Method Room Air Intake Visit Reasons: Shortness of breath Allergies No Known Allergies [No Known Allergies*] Allergy (Verified 01/17/24 08:21) HPI HPI Shortness of breath: Details: 53-year-old lady, nonsmoker, with underlying CAD status post stenting referred for evaluation of pulmonary component to dyspnea and chronic cough ongoing for over 1 year. Patient states that there is no significant daytime variation to the cough. She does get more at night. She does complain of intermittent GERD symptoms. Patient does have underlying environmental allergies. She denies family history of lung disease or personal history of lung disease. [facility] Medical History (Updated 04/25/24 @ 15:00 by Eder Vargas MD) Shortness of breath Coronary artery disease Angina at rest Chest pain Chest pain Crescendo angina Essential hypertension Mood disorder Surgical History S/P cardiac catheterization Stented coronary artery S/P cardiac cath Hx of hysterectomy for benign disease Family History Father CAD (coronary artery disease) Mother Mitral valve prolapse Other Stented coronary artery Social History Household Members: Spouse and Children Housing: House Do you presently have visiting nurse or other home services: No Alcohol intake: never Patient Tobacco Use Status: Never used Tobacco Advance Directives Date on File: 11/08/23 Review of Systems Const Denies daytime sleepiness, Denies excessive sweating, Denies fatigue, Denies fever(s), Denies lethargy, Denies malaise, Denies night sweats, Denies snoring and Denies weight loss Eyes Denies blurry vision and Denies itchy eyes ENT Denies nasal congestion, Denies post nasal drip, Denies sinus pain, Denies sinus pressure and Denies other ( Thrush) Card Denies chest pain, Denies pedal edema, Denies dyspnea, Reports dyspnea on exertion, Denies orthopnea and Denies paroxysmal nocturnal dyspnea Resp Reports cough, Denies hemoptysis, Denies excessive phlegm production, Denies dyspnea, Reports dyspnea on exertion, Denies snoring and Denies wheezing GI Denies abdominal pain and Denies heartburn Musc Denies myalgias, Denies arthralgias and Denies joint swelling Skin/Breast Denies rash Neuro Denies memory loss and Denies seizure-like activity Psych Denies abnormal sleep pattern, Denies anxiety and Denies memory loss Endo Denies excessive sweating, Denies fatigue and Denies heat intolerance Gerald/Lymph Denies easy bruising Aller/Immun Denies itchy eyes, Denies seasonal rhinorrhea and Denies wheezing Physical Exam Vital Signs: Last Vital Signs Pulse 112 H 04/25/24 14:38 BP 132/78 04/25/24 14:38 Pulse Ox 96 04/25/24 14:38 Oxygen Delivery Method Room Air 04/25/24 14:38 BMI result Body Mass Index 31.8 Const General: no acute distress and alert Nutritional Appearance: not obese Orientation/consciousness: Other orientation findings ( oriented) HEENT Head: Yes atraumatic Eyes General: appearance normal, both eyes and all related structures Sclerae: sclerae normal EOM: EOMs intact bilaterally Neck Neck: Yes supple Lymphatic: no lymphadenopathy noted Resp Effort & Inspection: normal respiratory effort and no use of accessory muscles Auscultation: clear to auscultation bilaterally Cardio Rate: regular rate Rhythm: regular rhythm Heart sounds: no gallops, no murmurs and no rubs Skin General skin exam: other ( warm) Extrem General: No clubbing, No cyanosis and No edema Assessment & Plan Assessment & Plan (1) Asthma: Code(s): J45.909 - Unspecified asthma, uncomplicated Category: Medical (2) Environmental allergies: Code(s): Z91.09 - Other allergy status, other than to drugs and biological substances Category: Medical (3) Cough: Code(s): R05.9 - Cough, unspecified Category: Medical (4) GERD (gastroesophageal reflux disease): Code(s): K21.9 - Gastro-esophageal reflux disease without esophagitis Category: Medical Plan Cough can have multiple etiologies including GERD, environmental allergies, and/or asthma. Will obtain full PFT, start on empiric Breo. Will obtain IgE level, CBC with differential, and RAST panel. Will start on PPI. Codeine syrup for symptomatic relief. Orders: Orders Complete Blood Count Auto Diff Today Z91.09 - Other allergy status, other than to drugs and biological substances Resp Allergy Profile Region I Today Z91.09 - Other allergy status, other than to drugs and biological substances PFT pulmonary function test Today J45.909 - Unspecified asthma, uncomplicated Medications: New fluticasone furoate-vilanterol 200-25 mcg/dose (Breo Ellipta) 1 inh inhalation DAILY 60 ea 6RF omeprazole 40 mg PO BID 60 caps 6RF 30 days Coding Level of Care Code New Pt Level 4 (10455) Complex EM visit Add On G2211 Diagnoses Asthma J45.909 Environmental allergies Z91.09 Cough R05.9 GERD (gastroesophageal reflux disease) K21.9
[2024-04-25 14:38] VITALS: BP 132/78; PULSE 112; O2SAT 96; BMI 31.8
== END 2024-04-25 14:59 | disposition home or self-care (01) ==
PROVIDERS: PCP Internal Medicine; Referring Provider Nurse Practitioner; Visit Provider Internal Medicine Pulmonary Disease
DX: J45.909 Unspecified asthma, uncomplicated (principal); Z91.09 Other allergy status, other than to drugs and biological substances; R05.9 Cough, unspecified; K21.9 Gastro-esophageal reflux disease without esophagitis
CPT/HCPCS: 99204

== ENCOUNTER 2024-04-28 12:49 | Emergency (ER) | payer OTHER, SELFPAY ==
--- NOTE | ~2024-04-28 | XR_ITS ---
EXAMINATION: XR CHEST CLINICAL INFORMATION: Cough with question of pneumonia COMPARISON: None available. TECHNIQUE: Frontal view of the chest was obtained. FINDINGS: No significant abnormality is noted involving the heart, lungs, mediastinum, bony thorax or soft tissues. XR/XR chest 1V IMPRESSION: Unremarkable examination. Electronically signed by: Tam Oden MD 04/28/2024 03:34 PM EDT
[2024-04-28 12:59] VITALS: BP 125/92; PULSE 118; RESP 24; TEMP 36.8; O2SAT 93; BMI 32.5
--- NOTE | 2024-04-28 13:04 | ECG_ITS ---
Test Reason : SOB Blood Pressure : / mmHG Vent. Rate : 123 BPM Atrial Rate : 123 BPM P-R Int : 104 ms QRS Dur : 080 ms QT Int : 424 ms P-R-T Axes : 040 059 058 degrees QTc Int : 607 ms Sinus tachycardia with short [place] Nonspecific ST and T wave abnormality Abnormal ECG When compared with ECG of 17-JAN-2024 08:15, Vent. rate has increased BY 44 BPM Nonspecific T wave abnormality now evident in Lateral leads Referred By: Godwin Chavez Electronically Signed By:LASHANDA GARCIA
--- NOTE | 2024-04-28 13:04 | ED.GENADULT ---
HPI - General Adult General Chief complaint: Dyspnea Stated complaint: sob, flu like symptoms Time Seen by Provider: 04/28/24 13:31 Source: patient and family ( ) Mode of arrival: ambulatory Limitations: no limitations History of Present Illness ED Provider: DR. Stout HPI narrative: 53-year-old female came in for evaluation of persistent coughing for the past 10 days, bring up a white clear sputum, coughing is more at night time patient got sleep at night, patient has been having shortness of breath, patient had a prior cardiac workup for similar symptoms and up to have 2 stent placed in LAD, last cardiac catheterization was 11/09/2023 and follow-up with Dr. Mary for her cardiac workup patient was referred to for further pulmonology workup and patient in the process for pulmonary function tests, patient was prescribed albuterol bump to help with her symptoms with no relief. Returned today for increased coughing especially at nighttime. No recent travel, no lower extremity swelling or tenderness, no exposure to a sick contact, Patient declined history of smoking cigarettes. Related Data Home Medications ?Medication ?Instructions ?Recorded ?Confirmed fluoxetine 40 mg capsule 40 mg PO DAILY PRN Anxiety 04/05/23 11/08/23 levothyroxine 75 mcg tablet 75 mcg PO DAILY 04/05/23 11/08/23 ticagrelor 90 mg tablet (Brilinta) 90 mg PO BID 04/23/23 11/08/23 multivitamin 1 tab PO DAILY 11/08/23 11/08/23 bisoprolol fumarate 5 mg tablet 5 mg PO DAILY 12/14/23 Previous Rx's ?Medication ?Instructions ?Recorded aspirin 81 mg tablet,delayed 81 mg PO DAILY #60 tabs 04/05/23 release (Ecotrin Low Strength) nitroglycerin 0.4 mg sublingual 0.4 mg sublingual Q5M PRN chest 04/11/23 tablet pain #25 tabs isosorbide mononitrate 30 mg 30 mg PO DAILY 90 days #90 tabs 03/11/24 tablet,extended release 24 hr atorvastatin 40 mg tablet 40 mg PO DAILY #90 tabs 04/09/24 codeine 10 mg-guaifenesin 100 mg/5 10 ml PO Q4-6H PRN cough #473 mL 04/25/24 mL oral liquid fluticasone furoate 200 1 inh inhalation DAILY #60 ea 04/25/24 mcg-vilanterol 25 mcg/dose inhalation powder (Breo Ellipta) omeprazole 40 mg capsule,delayed 40 mg PO BID 30 days #60 caps 04/25/24 release albuterol sulfate 90 mcg/actuation 2 puff inhalation Q6H PRN 04/28/24 aerosol inhaler shortness of breath or wheezing #8.5 grams azithromycin 250 mg tablet See Rx Instructions PO .COMPLEX #6 04/28/24 (Zithromax Z-Salvatore) tabs guaifenesin 200 mg/5 mL oral liquid 200 mg (5 mL) PO Q4H PRN cough 04/28/24 #118 mL prednisone 20 mg tablet 20 mg PO BID #10 tabs 04/28/24 Allergies Allergy/AdvReac Type Severity Reaction Status Date / Time No Known Allergies Allergy Verified 04/28/24 13:04 [No Known Allergies*] Review of Systems Review of Systems: all other systems are reviewed and are negative Constitutional: Reports as per HPI and Reports no additional constitutional complaints Eyes: Reports as per HPI and Reports no additional eye complaints Reports system reviewed and no additional complaints, except as documented Cardiovascular: Reports as per HPI and Reports no additional cardiovascular complaints Respiratory: Reports as per HPI and Reports no additional respiratory complaints Gastrointestinal: Reports as per HPI and Reports no additional gastrointestinal complaints Genitourinary: Reports no additional female genitourinary complaints Musculoskeletal: Reports no additional musculoskeletal complaints Skin/Breast: Reports system reviewed and no additional complaints, except as docu Psychiatric: Reports no additional psychiatric complaints Endocrine: Reports no additional endocrine complaints Hematologic/Lymphatic: Reports no additional hematologic/lymphatic complaints Allergic/Immunologic: Reports no additional allergic/immunologic complaints Reports system reviewed and no additional complaints, except as documented and Reports Abnormal speech present [facility] Past Medical History Medical History Shortness of breath Coronary artery disease Angina at rest Chest pain Chest pain Crescendo angina Essential hypertension Mood disorder Surgical History S/P cardiac catheterization Stented coronary artery S/P cardiac cath Hx of hysterectomy for benign disease Family History Family History Father CAD (coronary artery disease) Mother Mitral valve prolapse Other Stented coronary artery Social History Social History Household Members: Spouse and Children Housing: House Do you presently have visiting nurse or other home services: No Alcohol intake: never Patient Tobacco Use Status: Never used Tobacco Advance Directives: Yes Advance Directives on File: Yes Advance Directives Date on File: 11/08/23 Physical Exam ED Vital Signs: Vital Signs - 24 hr 04/28/24 12:59 04/28/24 13:43 04/28/24 14:14 Temperature 98.3 F Pulse Rate 118 H 108 H 118 H Respiratory Rate 24 H 20 23 H Blood Pressure 125/92 H 138/80 Pulse Oximetry 93 88 L Oxygen Delivery Method Room Air Oxygen Flow Rate 04/28/24 14:19 04/28/24 16:18 Temperature 98 F Pulse Rate 100 Respiratory Rate 20 Blood Pressure 134/76 Pulse Oximetry 94 91 L Oxygen Delivery Method Nasal Cannula Oxygen Flow Rate 2 BMI result Body Mass Index 32.5 Vital signs have been reviewed and appear to be correct. Blood pressure elevated. Heart rate normal. Respiratory rate normal. Temperature normal. Oxygen saturation normal. Appearance: Alert. Oriented X3. No acute distress. Head: Normal external exam. Normocephalic. Atraumatic. No Jeffery signs noted. No raccoon eyes noted Eyes: PERRLA. EOMI. Conjunctiva and sclera normal. Eyelids normal. ENT: TM's Normal. Pharynx normal. Uvula midline. Moist mucous membranes. No trismus noted. No drooling noted. No muffled voice noted. Neck: Normal inspection. Neck supple. FROM. No adenopathy. Thyroid Normal. No meningeal signs. No neck mass noted. CVS: Normal heart rate and rhythm. Heart sound normal. No murmurs noted. Pulses normal throughout. Respiratory: No respiratory distress. Painless inspiration. Breath sounds normal. diffuse expiratory wheezing with prolonged expiration, No accessory muscle usage noted or decreased air movement noted. Abdomen: Soft and nontender. Bowel sounds normal in all 4 quadrants. No distention noted. No organomegaly noted. No visible injury noted. Back: No CVA tenderness. Full range of motion noted. Skin: Skin warm and dry. Normal skin color. Normal skin turgor. No rashes/lesions/lacerations noted. Extremities: No lower extremity edema. Extremities exhibit normal range of motion. Extremities nontender. Neuro: Oriented X 3. Cranial nerve exam: II-XII are grossly intact No motor deficit. No sensory deficit. Reflexes normal. Course Course Course Narrative: RME: Done by GOLDEN Mercer. 53-year-old female with history 2 stents presents to ED for shortness of breath worsening for the past 10 days. 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 Patient has recently was evaluated by renewals representative who does not know what is going on but patient is due for pulmonary function test. Patient states worsening shortness of breath the past 10 days. O2 saturation on ambulation 91% at rest 93%. Labs EKG ordered. Lungs positive for expiratory wheezing. Lower extremity negative for swelling pitting edema or calf pain. Reevaluation(s) Reevaluation #1: 53-year-old with 10 days of coughing and shortness of breath, unremarkable workup in the emergency department, scheduled for outpatient workup for pulmonary function test by Dr. Vargas. Will start the patient on prednisone short course of 5 days, coughing medicine, short course of Z-Salvatore, and continue with bronchodilator. Time: 16:00 Medications Administered Discontinued Medications Generic Name Dose Route Start Last Admin Trade Name Freq PRN Reason Stop Dose Admin Albuterol Sulfate 2.5 mg 04/28/24 13:30 04/28/24 13:35 Albuterol Sulfate (0.083%) 2.5 Mg/3 Ml Vial.Neb INHALE 04/28/24 13:31 2.5 mg ONCE ONE Administration Guaifenesin/Codeine Phosphate 10 ml 04/28/24 14:17 04/28/24 14:39 Guaifen/Codeine Sf 200/20/10ml 10 Ml Liquid PO 04/28/24 14:18 10 ml NOW STA Administration Prednisone 40 mg 04/28/24 13:52 04/28/24 14:14 Prednisone 20 Mg Tablet PO 04/28/24 13:53 40 mg ONCE ONE Administration Medical Decision Making Differential Diagnosis Differential Diagnoses: The differential diagnosis associated with the presentation includes ( Pneumonia, pneumothorax, pleural effusion, COPD, bronchitis, asthma, ACS, electrolyte derangement, severe anemia.) Admission/Observation Consideration of admission/observation: Escalation of care including admission/observation considered Lab Data MDM Lab Attestation statement: I reviewed the patient's lab results. 04/28/24 13:28 04/28/24 13:28 Labs: Lab Results 04/28/24 Range/Units 13:28 WBC 11.5 H (4.8-10.8) X10*3/uL RBC 4.28 (4.20-5.50) X10*6/uL Hgb 12.4 (12.0-16.0) g/dl Hct 36.9 L (37.0-47.0) % MCV 86.2 (80.0-98.0) fL MCH 29.0 (27.0-33.0) pg MCHC 33.6 (31.0-35.0) g/dl RDW 14.2 (11.0-16.0) % Plt Count 359 (160-400) X10*3/uL MPV 9.7 (9.4-12.3) fL Immature Gran % (Auto) 0.3 (0.0-0.4) % Neut % (Auto) 83.6 H (45-73) % Lymph % (Auto) 8.5 L (20-40) % [place] % (Auto) 5.1 (2-11) % Eos % (Auto) 2.1 (0-4) % Baso % (Auto) 0.4 (0-2) % Lymph # (Auto) 1.0 L (1.2-4.9) X10*3/uL [place] # (Auto) 0.6 (0.1-1.2) X10*3/uL Eos # (Auto) 0.2 (0.0-0.4) X10*3/uL Baso # (Auto) 0.1 (0.0-0.2) X10*3/uL Abs Immat Gran (auto) 0.03 (0.00-0.03) X10*3/uL Absolute Neuts (auto) 9.6 H (2.0-8.3) x10*3/uL Absolute Nucleated RBC 0.000 (0.0-0.012) X10*3/uL Nucleated RBC % (auto) 0.0 (0.0-0.2) /100WBC PT 11.9 (10.9-12.4) SEC INR 1.0 (0.9-1.1) APTT 30.8 (26.0-36.8) SEC Sodium 140 (135-145) mmol/L Potassium 3.6 (3.3-5.1) mmol/L Chloride 106 (96-108) mmol/L Carbon Dioxide 21 L (22-29) mmol/L Anion Gap 17 (12-20) BUN 8 L (9-16) mg/dL Creatinine 0.82 (0.5-1.4) mg/dL Estim Creat Clear Calc 98.6 Estimated GFR > 60 Random Glucose 115 (60-115) mg/dL Calcium 9.8 (8.4-10.2) mg/dL Total Bilirubin 1.1 H (0.0-1.0) mg/dL AST 37 H (5-31) U/L ALT 31 (0-31) U/L Alkaline Phosphatase 162 H (39-117) U/L Troponin I High Sens < 2.7 (<3.5-17.0) ng/L B-Natriuretic Peptide < 10 (<100) pg/mL Total Protein 8.1 H (6.5-8.0) g/dL Albumin 4.3 (3.5-5.0) g/dL Influenza Type A (PCR) NEGATIVE (Negative) Influenza Type B (PCR) NEGATIVE (Negative) RSV RNA Qual (PCR) NEGATIVE (Negative) SARS-CoV-2 RNA (RT-PCR) NEGATIVE (Negative) Independent Interpretation I performed an independent interpretation of an: Plain X-Ray ( Chest: No acute intrathoracic pathology.) Radiology Impression Discussion of test interpretation with radiology: I have reviewed the radiologist's reading. Discharge Plan Discharge Clinical Impression: Bronchitis Patient Disposition: Home, Self-Care Instructions: Acute Bronchitis (ED) Prescriptions: New azithromycin [Zithromax Z-Salvatore] 250 mg tablet See Rx Instructions .ROUTE .COMPLEX Qty: 6 0RF Rx Instructions: For 250 mg dose pack: take 500 mg today (day 1), then 250 mg for 4 days (days 2-5) prednisone 20 mg tablet 20 mg PO BID Qty: 10 0RF guaifenesin 200 mg/5 mL liquid 200 mg PO Q4H PRN (Reason: cough) Qty: 118 0RF albuterol sulfate 90 mcg/actuation HFA aerosol inhaler 2 puff inhalation Q6H PRN (Reason: shortness of breath or wheezing) Qty: 8.5 0RF No Action nitroglycerin 0.4 mg tablet, sublingual 0.4 mg sublingual Q5M PRN (Reason: chest pain) Qty: 25 2RF Rx Instructions: do not exceed 3 doses per episode isosorbide mononitrate 30 mg tablet extended release 24 hr 30 mg PO DAILY 90 Days Qty: 90 3RF atorvastatin 40 mg tablet 40 mg PO DAILY Qty: 90 3RF Brilinta 90 mg tablet 90 mg PO BID multivitamin Tablet 1 tab PO DAILY levothyroxine 75 mcg tablet 75 mcg PO DAILY fluoxetine 40 mg capsule 40 mg PO DAILY PRN (Reason: Anxiety) aspirin [Ecotrin Low Strength] 81 mg tablet,delayed release (DR/EC) 81 mg PO DAILY Qty: 60 1RF fluticasone furoate-vilanterol [Breo Ellipta] 200-25 mcg/dose blister with device 1 inh inhalation DAILY Qty: 60 6RF omeprazole 40 mg capsule,delayed release(DR/EC) 40 mg PO BID 30 Days Qty: 60 6RF codeine-guaifenesin 10-100 mg/5 mL liquid 10 ml PO Q4-6H PRN (Reason: cough) Qty: 473 0RF bisoprolol fumarate 5 mg tablet 5 mg PO DAILY Referrals: Seymour Mitchell MD [Primary Care Provider] - Eder Vargas MD [Physician] - Stand Alone Forms: Work/School Release Interventions: ED Discharge Assessment Last Done: 04/28/24 16:18 Discharge Date/Time: 04/28/24 16:29 Print Language: [place]ib[place]
[2024-04-28 13:30] LABS: MANUAL DIFF FLAG NO
[2024-04-28 13:31] LABS: Basophils Absolute Auto 0.1 X10*3/uL (0.0-0.2); Basophils Percent Auto 0.4 % (0-2); Eosinophils Absolute Auto 0.2 X10*3/uL (0.0-0.4); Eosinophils Percent Auto 2.1 % (0-4); Hematocrit 36.9 % (37.0-47.0); Hemoglobin 12.4 g/dl (12.0-16.0); Imm Gran Abs Auto 0.03 X10*3/uL (0.00-0.03); Imm Gran Pct Auto 0.3 % (0.0-0.4); Lymphocytes Percent Auto 8.5 % (20-40); Mean Corpuscular HGB Conc 33.6 g/dl (31.0-35.0); Mean Corpuscular Volume 86.2 fL (80.0-98.0); Mean Platelet Volume 9.7 fL (9.4-12.3); Monocytes Absolute Auto 0.6 X10*3/uL (0.1-1.2); Monocytes Percent Auto 5.1 % (2-11); Neutrophils Absolute Auto 9.6 x10*3/uL (2.0-8.3); Neutrophils Percent Auto 83.6 % (45-73); Platelet Count 359 X10*3/uL (160-400); Red Blood Count 4.28 X10*6/uL (4.20-5.50); Red Cell Distribution Width 14.2 % (11.0-16.0); White Blood Count 11.5 X10*3/uL (4.8-10.8)
[2024-04-28] MEDS: Albuterol Sulfate (0.083%) 2.5 MG/3 ML VIAL.NEB INHALE (13:35)
[2024-04-28 13:37] LABS: Prothrombin Time 11.9 SEC (10.9-12.4)
[2024-04-28 13:40] LABS: Partial Thromboplastin Time 30.8 SEC (26.0-36.8)
[2024-04-28 13:43] VITALS: PULSE 108; RESP 20; O2SAT 93
[2024-04-28 13:46] LABS: Alanine Aminotransferase 31 U/L (0-31); Albumin Level 4.3 g/dL (3.5-5.0); Alkaline Phosphatase 162 U/L (39-117); Anion Gap 17 (12-20); Aspartate Amino Transferase 37 U/L (5-31); Bilirubin Total 1.1 mg/dL (0.0-1.0); Blood Urea Nitrogen 8 mg/dL (9-16); Calcium 9.8 mg/dL (8.4-10.2); Carbon Dioxide 21 mmol/L (22-29); Chloride 106 mmol/L (96-108); Creatinine Clr Calc Pharmacy 98.6; Estimated Glomerular Filt Rate > 60; Glucose Random 115 mg/dL (60-115); Potassium 3.6 mmol/L (3.3-5.1); Sodium 140 mmol/L (135-145); Total Protein 8.1 g/dL (6.5-8.0)
[2024-04-28 13:53] LABS: B Type Natriuretic Peptide < 10 pg/mL (<100)
[2024-04-28 13:58] LABS: Troponin-I High Sensitivity < 2.7 ng/L (<3.5-17.0)
[2024-04-28 14:14] VITALS: BP 138/80; PULSE 118; RESP 23; O2SAT 88
[2024-04-28] MEDS: predniSONE 20 MG TABLET 40 MG PO (14:14)
[2024-04-28 14:19] VITALS: O2SAT 94
[2024-04-28 14:34] LABS: Influenza A PCR NEGATIVE (Negative); Influenza B PCR NEGATIVE (Negative); Resp Syncy Virus RNA Qual PCR NEGATIVE (Negative); SARS COV2 PCR INHOUSE NEGATIVE (Negative)
[2024-04-28] MEDS: guaiFEN/Codeine SF 200/20/10ML 10 ML LIQUID PO (14:39)
[2024-04-28 16:18] VITALS: BP 134/76; PULSE 100; RESP 20; TEMP 36.6; O2SAT 91
== END 2024-04-28 16:29 | disposition home or self-care (01) ==
PROVIDERS: Physician Assistant; Emergency Provider Emergency Medicine; PCP Internal Medicine
DX: J40 Bronchitis, not specified as acute or chronic (principal); R06.02 Shortness of breath; R05.9 Cough, unspecified; R00.0 Tachycardia, unspecified; Z03.818 Encounter for observation for suspected exposure to other biological agents ruled out; Z79.899 Other long term (current) drug therapy
CPT/HCPCS: 0241U; 36415; 71045; 80053; 83880; 84484; 85025; 85610; 85730; 93005; 94640; 99284; 99285

== ENCOUNTER 2024-05-06 16:25 | Outpatient (REF) | payer OTHER, SELFPAY ==
--- NOTE | ~2024-05-06 | XR_ITS ---
EXAMINATION: XR CHEST CLINICAL INFORMATION: COUGH COMPARISON: 01/17/2024. TECHNIQUE: 2 views of the chest were obtained. FINDINGS: The cardiac, hilar, and mediastinal contours are normal. Coronary stent in the LAD. The lungs are clear bilaterally. There is no pneumothorax or pleural effusion. There is no focal osseous or soft tissue abnormality. XR/XR chest 2V IMPRESSION: No active pulmonary disease. Electronically signed by: Aryan Cohn MD 07/23/2024 03:15 PM [facility]
== END 2024-05-06 16:26 | disposition home or self-care (01) ==
LOC: HO.XRAY 16:25
PROVIDERS: PCP Internal Medicine; Visit Provider Internal Medicine
DX: R50.9 Fever, unspecified (principal); R51.9 Headache, unspecified
CPT/HCPCS: 71046

== ENCOUNTER → 2024-05-06 16:28 | Outpatient (BNV) | payer OTHER, SELFPAY | PROVIDERS: PCP Internal Medicine; Visit Provider Radiology Diagnostic Radiology | DX: R05.9 Cough, unspecified (principal) | CPT/HCPCS: 71046 ==

== ENCOUNTER 2024-06-12 14:47 | Outpatient (REF) | payer OTHER, SELFPAY ==
[2024-06-12 08:37] VITALS: PULSE 99; RESP 16; O2SAT 98
--- NOTE | 2024-06-12 14:50 | PFT_ITS ---
Flows: FEV1: 94 % of predicted at 3.02 L FVC: 99 % of predicted at 4.03 L FEV1/FVC: 75 % Bronchodilator response: Present in small to medium airways only. Volumes: Total lung capacity: 89 % of predicted at 5.63 L Residual volume: 81 % of predicted at 1.60 L Slow vital capacity: 93 % of predicted at 4.03 L Expiratory reserve volume: 66 % of predicted at 0.80 L Diffusion capacity: Normal Impression: No obstructive or restrictive ventilatory defect. Bronchodilator response present in small to medium airways only. MTDD
== END 2024-06-12 14:48 | disposition home or self-care (01) ==
LOC: HO.RESP 14:47
PROVIDERS: PCP Internal Medicine; Visit Provider Internal Medicine Pulmonary Disease
DX: J45.909 Unspecified asthma, uncomplicated (principal)
CPT/HCPCS: 94010; 94640; 94727; 94729

== ENCOUNTER → 2024-06-12 14:50 | Outpatient (BNV) | payer OTHER, SELFPAY | PROVIDERS: PCP Internal Medicine; Visit Provider Internal Medicine Pulmonary Disease | DX: J45.909 Unspecified asthma, uncomplicated (principal) | CPT/HCPCS: 94060; 94727; 94729 ==

== ENCOUNTER 2024-06-14 15:33 | Outpatient (AMB) | payer OTHER, SELFPAY ==
--- NOTE | 2024-06-14 15:37 | MHC.OFFVIS ---
Vital Signs 06/14/24 15:38 Height 5 ft 10 in Weight 222 lb BMI 31.9 BP 122/78 Blood Pressure Location Rt brachial Position Sitting Pulse 106 H Pulse Source Doppler Pulse Oximetry (%) 96 Oxygen Delivery Method Room Air Intake Visit Reasons: Shortness of breath Allergies No Known Allergies [No Known Allergies*] Allergy (Verified 06/14/24 15:39) HPI HPI Shortness of breath: Details: 53-year-old lady, nonsmoker, with underlying CAD status post stenting referred for evaluation of pulmonary component to dyspnea and chronic cough ongoing for over 1 year. Patient states that there is no significant daytime variation to the cough. She does get more at night. She does complain of intermittent GERD symptoms. Patient does have underlying environmental allergies. She denies family history of lung disease or personal history of lung disease. After the last office visit patient had prolonged episode of bronchitis treated with several courses of antibiotics/prednisone, now essentially at baseline. Her cough has also resolved. Patient tried Breo, however she does not think she had any symptomatic benefit. She did complete her immunologic testing that showed moderate allergy to maple trees. She does complain of decreased exercise capacity, however does not want further testing at this time. [facility] Medical History Shortness of breath Coronary artery disease Angina at rest Chest pain Chest pain Crescendo angina Essential hypertension Mood disorder Surgical History S/P cardiac catheterization Stented coronary artery S/P cardiac cath Hx of hysterectomy for benign disease Family History Father CAD (coronary artery disease) Mother Mitral valve prolapse Other Stented coronary artery Social History Household Members: Spouse and Children Housing: House Do you presently have visiting nurse or other home services: No Alcohol intake: never Patient Tobacco Use Status: Never used Tobacco Advance Directives Date on File: 11/08/23 Review of Systems Const Denies daytime sleepiness, Denies excessive sweating, Denies fatigue, Denies fever(s), Denies lethargy, Denies malaise, Denies night sweats, Denies snoring and Denies weight loss Eyes Denies blurry vision and Denies itchy eyes ENT Denies nasal congestion, Denies post nasal drip, Denies sinus pain, Denies sinus pressure and Denies other ( Thrush) Card Denies chest pain, Denies pedal edema, Denies dyspnea, Denies orthopnea and Denies paroxysmal nocturnal dyspnea Resp Denies cough, Denies hemoptysis, Denies excessive phlegm production, Denies dyspnea, Denies snoring and Denies wheezing GI Denies abdominal pain and Denies heartburn Musc Denies myalgias, Denies arthralgias and Denies joint swelling Skin/Breast Denies rash Neuro Denies memory loss and Denies seizure-like activity Psych Denies abnormal sleep pattern, Denies anxiety and Denies memory loss Endo Denies excessive sweating, Denies fatigue and Denies heat intolerance Gerald/Lymph Denies easy bruising Aller/Immun Denies itchy eyes, Denies seasonal rhinorrhea and Denies wheezing Physical Exam Vital Signs: Last Vital Signs Pulse 106 H 06/14/24 15:38 BP 122/78 06/14/24 15:38 Pulse Ox 96 06/14/24 15:38 Oxygen Delivery Method Room Air 06/14/24 15:38 BMI result Body Mass Index 31.9 Const General: no acute distress and alert Nutritional Appearance: not obese Orientation/consciousness: Other orientation findings ( oriented) HEENT Head: Yes atraumatic Eyes General: appearance normal, both eyes and all related structures Sclerae: sclerae normal EOM: EOMs intact bilaterally Neck Neck: Yes supple Lymphatic: no lymphadenopathy noted Resp Effort & Inspection: normal respiratory effort and no use of accessory muscles Auscultation: clear to auscultation bilaterally Cardio Rate: regular rate Rhythm: regular rhythm Heart sounds: no gallops, no murmurs and no rubs Skin General skin exam: other ( warm) Extrem General: No clubbing, No cyanosis and No edema Assessment & Plan Assessment & Plan (1) Cough: Code(s): R05.9 - Cough, unspecified Category: Medical Plan: Resolved. No significant changes with Breo. Will discontinue at this time. (2) Environmental allergies: Code(s): Z91.09 - Other allergy status, other than to drugs and biological substances Category: Medical Plan: Results of allergy testing reviewed, underlying moderate allergies to maple trace, continue as needed [id number] antihistamines. If worsening may consider immunologic therapy. (3) Shortness of breath: Code(s): R06.02 - Shortness of breath Category: Medical Plan: Patient states that she is close to her baseline, though with somewhat decreased exercise tolerance, however she is not interested in pursuing further testing as she wants to try to work on her weight and exercise regimen. If unsuccessful, may consider cardiopulmonary exercise testing. Coding Level of Care Code Est Pt Level 4 (03809) Diagnoses Cough R05.9 Environmental allergies Z91.09 Shortness of breath R06.02
[2024-06-14 15:38] VITALS: BP 122/78; PULSE 106; O2SAT 96; BMI 31.9
== END 2024-06-14 15:50 | disposition home or self-care (01) ==
PROVIDERS: PCP Internal Medicine; Visit Provider Internal Medicine Pulmonary Disease
DX: R05.9 Cough, unspecified (principal); Z91.09 Other allergy status, other than to drugs and biological substances; R06.02 Shortness of breath
CPT/HCPCS: 99214

== ENCOUNTER → 2024-09-13 08:29 | Outpatient (BNVA) | payer OTHER, SELFPAY | PROVIDERS: PCP Internal Medicine; Visit Provider Internal Medicine Cardiovascular Disease | DX: I25.110 Atherosclerotic heart disease of native coronary artery with unstable angina pectoris (principal); E78.5 Hyperlipidemia, unspecified | CPT/HCPCS: 93005 ==

== ENCOUNTER → 2024-09-13 08:29 | Outpatient (AMB) | payer OTHER, SELFPAY ==
--- NOTE | 2024-09-13 08:32 | A.OFFVIS_ITS ---
Vital Signs 09/13/24 08:32 Height 5 ft 10 in Weight 222 lb 10.67 oz BMI 31.9 BP 138/84 Blood Pressure Location Lt brachial Position Sitting Pulse 119 H Intake Visit Reasons: r/s 07/08/24 3 mos followup Intake Note: 3 month follow-up has been off brilinta x2 month feeling good [employer] Required: No Allergies No Known Allergies [No Known Allergies*] Allergy (Verified 06/14/24 15:39) Medication List - Last Reconciled 09/13/24 by Shashank Mary MD albuterol sulfate 90 mcg/actuation 2 puffs inhalation Q6H PRN aspirin (Ecotrin Low Strength) 81 mg PO DAILY atorvastatin 40 mg PO DAILY bisoprolol fumarate 5 mg PO DAILY isosorbide mononitrate ER 30 mg PO DAILY 90 days levothyroxine 75 mcg PO DAILY multivitamin 1 tab PO DAILY nitroglycerin 0.4 mg sublingual Q5M PRN HPI Comments Details: Brandy comes for follow-up. She has been having some sort of viral syndrome since Monday night. She has congested head, coughing and bringing up phlegm. She denies any shortness of breath. She has a cough has suppressed with a cough suppressant. She denies any fever but has chills. Denies any chest pain similar to her anginal discomfort. Says she was lot of stress due to multiple issues and gets anxious and is depressed. Denies any heart failure symptoms. Denies any prolonged palpitation irregular heartbeat. Noted on EKG to have sinus tachycardia. She says that she has not been getting a Brilinta for last couple of months through the pharmacy. She did not call the office [facility] Medical History Coronary artery disease Shortness of breath Angina at rest Chest pain Chest pain Crescendo angina Essential hypertension Mood disorder Surgical History S/P cardiac catheterization Stented coronary artery S/P cardiac cath Hx of hysterectomy for benign disease Family History Father CAD (coronary artery disease) Mother Mitral valve prolapse Other Stented coronary artery Social History Household Members: Spouse and Children Housing: House Do you presently have visiting nurse or other home services: No Alcohol intake: never Patient Tobacco Use Status: Never used Tobacco Advance Directives Date on File: 11/08/23 Review of Systems Const Denies chills, Denies fatigue, Denies fever(s), Denies frequent falls, Denies weakness, Denies weight gain and Denies weight loss ENT Denies dizziness Card Denies chest pain, Denies leg edema, Denies lightheadedness, Denies palpitations, Denies dyspnea, Denies dyspnea on exertion, Denies orthopnea and Denies other (loss of consciousness) Resp Denies cough, Denies dyspnea and Denies dyspnea on exertion GI Denies hematochezia and Denies change in stool character Musc Denies abnormal gait, Denies muscle weakness, Denies numbness, Denies radiating pain into limb and Denies tingling Neuro Denies abnormal gait, Denies dizziness, Denies frequent falls, Denies numbness, Denies tingling and Denies weakness Endo Denies fatigue and Denies palpitations Physical Exam Vital Signs: Last Vital Signs Pulse 119 H 09/13/24 08:32 BP 138/84 09/13/24 08:32 BMI result Body Mass Index 31.9 Const General: cooperative, healthy appearing, comfortable, no acute distress and anxious Nutritional Appearance: overweight Orientation/consciousness: patient oriented x3 HEENT Head: Yes normal to inspection Neck Neck: Yes normal visual inspection and Yes no JVD Carotids: normal carotid upstroke Chest Chest palpation & inspection: normal inspection of the chest Resp Effort & Inspection: normal respiratory effort Auscultation: clear to auscultation bilaterally, no crackles, no rales, no rhonchi and no wheezes Cardio Jugular venous distension: no JVD Rate: regular rate Rhythm: regular rhythm Heart sounds: S1 normal heart sound present, S2 normal heart sound present, no gallops, no murmurs and no rubs Peripheral pulses: Peripheral pulses 2+ throughout Skin General skin exam: no rashes or lesions noted Neuro General: patient oriented x3 Extrem Other: right radial cath site well healed General: Yes normal to inspection, No no pedal edema and No calf tenderness Psych Appearance: grossly normal Mental Status: mental status grossly normal Speech and movement: Normal speech and movement present Office Procedures EKG Details: EKG shows sinus tachycardia at 119 beats per minute [id number], Complete Assessment & Plan Assessment & Plan (1) Coronary artery disease: Code(s): I25.10 - Atherosclerotic heart disease of [place] coronary artery without angina pectoris Category: Medical Qualifiers: Associated angina: with unstable angina Coronary Disease-Associated Artery/Lesion type: unspecified vessel or lesion type [place] vs. transplanted heart: [place] heart Qualified Code(s): I25.110 - Atherosclerotic heart disease of [place] coronary artery with unstable angina pectoris Plan: CAD with unstable angina with InStent restenosis last year undergoing stenting in November to the mid LAD. She had stenting in April prior to that for unstable angina as well. Patient is currently not having any cardiac symptoms although noted to be fast heart rate probably due to anxiety and probably due to her viral illness. Advised her to hydrate herself very well. Stress mitigation strategies was discussed. Will follow up with the EKG and vital signs check in 3 weeks' time with a nurse visit. If she continues to have significant tachycardia will need to evaluate for any other abnormality and/or increase her bisoprolol dose. She needs dual antiplatelet therapy till November of 2024. Lifelong aspirin therapy beyond that. Continue high-intensity statin therapy, advised lipid panel with CRP in the near future. She was encouraged to maintain activity level as tolerated. Blood pressure is otherwise well optimized. Follow up in the clinic in 3 weeks for nurse visit in 1 year with me. Orders: Orders CRP High Sensitivity 3 Weeks E78.5 - Hyperlipidemia, unspecified, I25.110 - Atherosclerotic heart disease of [place] coronary artery with unstable angina pectoris Lipoprotein A 3 Weeks I25.10 - Atherosclerotic heart disease of [place] coronary artery without angina pectoris, I25.110 - Atherosclerotic heart disease of [place] coronary artery with unstable angina pectoris Apolipoprotein B 3 Weeks I25.10 - Atherosclerotic heart disease of [place] coronary artery without angina pectoris, I25.110 - Atherosclerotic heart disease of [place] coronary artery with unstable angina pectoris Lipid Panel 3 Weeks I25.10 - Atherosclerotic heart disease of [place] coronary artery without angina pectoris, I25.110 - Atherosclerotic heart disease of [place] coronary artery with unstable angina pectoris Medications: New ticagrelor (Brilinta) 90 mg PO BID 60 tabs 2RF I25.110 - Atherosclerotic heart disease of [place] coronary artery with unstable angina pectoris Coding Level of Care Code Est Pt Level 4 (76052) Complex EM visit Add On G2211 Diagnoses Coronary artery disease involving [place] heart with unstable angina pectoris, unspecified vessel or lesion type I25.110 Associated angina: with unstable angina Coronary Disease-Associated Artery/Lesion type: unspecified vessel or lesion type [place] vs. transplanted heart: [place] heart CPT Codes EKG - CPT: 40110-[id number], Complete ([id number])
== END | disposition home or self-care (01) ==
PROVIDERS: PCP Internal Medicine; Visit Provider Internal Medicine Cardiovascular Disease
CPT/HCPCS: 93010; 99214

== ENCOUNTER 2024-10-03 10:36 | Emergency (ER) | payer OTHER, SELFPAY ==
--- NOTE | 2024-10-03 | ECG_ITS ---
Test Reason : CHEST PAIN Blood Pressure : */* mmHG Vent. Rate : 95 BPM Atrial Rate : 95 BPM P-R Int : 152 ms QRS Dur : 82 ms QT Int : 360 ms P-R-T Axes : 59 46 36 degrees QTcB Int : 452 ms Normal sinus rhythm Normal ECG When compared with ECG of 28-Apr-2024 13:03, MO interval has increased Nonspecific T wave abnormality no longer evident in Lateral leads Referred By: Generic ED Physician Electronically Signed By: David Morel
--- NOTE | ~2024-10-03 | XR_ITS ---
EXAMINATION: XR CHEST CLINICAL INFORMATION: Chest pain COMPARISON: May 06, 2024. TECHNIQUE: Frontal view of the chest was obtained. FINDINGS: No consolidation, pleural effusion or pneumothorax. Cardiomediastinal silhouette size is normal. Osseous structures are intact. XR/XR chest 1V IMPRESSION: No acute airspace disease. Stable chest. Electronically signed by: Channing Pizano MD 10/03/2024 11:42 AM [facility]
[2024-10-03 11:01] LABS: MANUAL DIFF FLAG NO
[2024-10-03 11:03] LABS: Basophils Absolute Auto 0.1 X10*3/uL (0.0-0.2); Basophils Percent Auto 0.7 % (0-2); Eosinophils Absolute Auto 0.3 X10*3/uL (0.0-0.4); Eosinophils Percent Auto 3.4 % (0-4); Hematocrit 40.3 % (37.0-47.0); Imm Gran Abs Auto 0.02 X10*3/uL (0.00-0.03); Imm Gran Pct Auto 0.3 % (0.0-0.4); Lymphocytes Absolute Auto 1.3 X10*3/uL (1.2-4.9); Lymphocytes Percent Auto 17.4 % (20-40); Mean Corpuscular HGB Conc 34.7 g/dl (31.0-35.0); Mean Corpuscular Volume 83.6 fL (80.0-98.0); Mean Platelet Volume 9.8 fL (9.4-12.3); Monocytes Absolute Auto 0.4 X10*3/uL (0.1-1.2); Monocytes Percent Auto 4.8 % (2-11); Neutrophils Absolute Auto 5.7 x10*3/uL (2.0-8.3); Neutrophils Percent Auto 73.4 % (45-73); Platelet Count 337 X10*3/uL (160-400); Red Blood Count 4.82 X10*6/uL (4.20-5.50); Red Cell Distribution Width 14.1 % (11.0-16.0); White Blood Count 7.7 X10*3/uL (4.8-10.8)
[2024-10-03 11:06] VITALS: BP 172/99; PULSE 94; RESP 18; TEMP 36.2; O2SAT 99; BMI 31.9
--- NOTE | 2024-10-03 11:13 | ED.CHESTPAIN ---
HPI - Chest Pain General Chief Complaint: Chest Pain Stated Complaint: chest pain Time Seen by Provider: 10/03/24 14:09 Source: patient, RN notes reviewed and old records reviewed Mode of arrival: ambulatory Limitations: no limitations History of Present Illness ED Provider: Janee MCCLENDON narrative: 53-year-old female presents for evaluation of chest pain. Patient has a history of coronary artery disease status post stenting x2, most recently last year, GERD, asthma her mood disorder She was seen by Cardiology 2 weeks ago for viral symptoms. She was found to be tachycardic at that appointment but did not have chest pain. She states that she has had a dull chest pain with shortness of breath over the 2 weeks since that appointment. She reports that her pain has worsened over the last 5 days She reports mild shortness of breath. She is due to see Cardiology tomorrow for an EKG appointment only. Her inpatient services rn is Dr. Mary Denies any leg swelling no recent travel or history of DVT/PE No other complaints or concerns at this time Related Data Home Medications ?Medication ?Instructions ?Recorded ?Confirmed levothyroxine 75 mcg tablet 75 mcg PO DAILY 04/05/23 10/03/24 multivitamin 1 tab PO DAILY 11/08/23 10/03/24 Previous Rx's ?Medication ?Instructions ?Recorded aspirin 81 mg tablet,delayed 81 mg PO DAILY #60 tabs 04/05/23 release (Ecotrin Low Strength) nitroglycerin 0.4 mg sublingual 0.4 mg sublingual Q5M PRN chest 04/11/23 tablet pain #25 tabs ticagrelor 90 mg tablet (Brilinta) 90 mg PO BID #60 tabs 09/13/24 Allergies Allergy/AdvReac Type Severity Reaction Status Date / Time No Known Allergies Allergy Verified 10/03/24 11:07 [No Known Allergies*] Review of Systems Constitutional: Constitutional: Denies body ache(s), Denies chills, Denies fatigue, Denies fever(s) and Denies headache(s) ENT: Denies headache(s) Cardiovascular: Cardiovascular: Reports chest pain, Reports chest pain at rest, Reports chest pain with activity and Reports dyspnea Respiratory: Respiratory: Denies cough and Reports dyspnea Gastrointestinal: Gastrointestinal: Denies abdominal pain, Denies nausea and Denies vomiting Musculoskeletal: Musculoskeletal: Denies back pain Integumentary/Breasts: Skin/Breast: Denies rash Neurologic: Denies headache(s) Endocrine: Endocrine: Denies fatigue PMFSH Past Medical History Medical History Coronary artery disease Shortness of breath Angina at rest Chest pain Chest pain Crescendo angina Essential hypertension Mood disorder Surgical History S/P cardiac catheterization Stented coronary artery S/P cardiac cath Hx of hysterectomy for benign disease Family History Family History Father CAD (coronary artery disease) Mother Mitral valve prolapse Other Stented coronary artery Social History Social History Household Members: Spouse and Children Housing: House Do you presently have visiting nurse or other home services: No Alcohol intake: never Patient Tobacco Use Status: Never used Tobacco Smoked in Last 30 Days: No Use of substances other than those prescribed or required for medical reasons: No Advance Directives: Yes Advance Directives on File: Yes Advance Directives Date on File: 11/08/23 Physical Exam Vital Signs: Vital Signs: Last Vital Signs Temp 97.9 F 10/04/24 05:22 Pulse 97 10/04/24 05:22 Resp 18 10/04/24 05:22 BP 131/88 10/04/24 05:22 Pulse Ox 95 10/04/24 05:22 O2 Del Method Room Air 10/04/24 05:22 BMI result Body Mass Index 31.9 Const: General: healthy appearing, comfortable, no acute distress, alert and awake Nutritional Appearance: well nourished Orientation/consciousness: patient oriented x3 HEENT: Head: Yes normocephalic and Yes atraumatic Eyes: Eyelids: Yes eyelids normal Conjunctivae: conjunctivae normal Sclerae: sclerae normal Corneas: corneas normal Pupils: Equal, round and reactive pupils present EOM: EOMs intact bilaterally Neck: Neck: Yes full ROM Resp: Effort & Inspection: normal respiratory effort, able to speak in complete sentences, no audible wheezes and not labored Auscultation: clear to auscultation bilaterally Cardio: Rate: regular rate Rhythm: regular rhythm GI: Inspection: No distended Palpation (GI): Soft to palpation, not firm, nontender, no guarding and not rigid Skin: General skin exam: elasticity normal Neuro: General: patient oriented x3 Cranial nerves: Yes Equal, round and reactive pupils present and Yes Bilaterally intact EOM present Cognition (Neuro): normal cognition Course Course Course Narrative: RME: 53-year-old female with past medical history of 2 stents placed presents to ED for chest pain for 2 weeks. Patient states during those 2 weeks she was sick with cough body aches and chills. Patient denies any leg swelling calf pain recent long travel recent surgery. EKG labs chest x-ray ordered. Reevaluation(s) Reevaluation #1: Discussed with Cardiology, Dr. Morel after he had evaluated the patient. The patient rules out for ACS however she was quite high risk due to her previous presentations with normal workups despite having significant stenosis of the coronary arteries. He recommends I give the patient a dose of Lovenox subcutaneous and he will attempt to transfer the patient to [facility] for unstable angina Time: 15:55 Medications Administered Generic Name Dose Route Start Last Admin Trade Name Freq PRN Reason Stop Dose Admin Enoxaparin Sodium 100 mg 10/04/24 09:00 10/04/24 06:50 Enoxaparin Sodium 100 Mg/Ml Syringe 1 mg/kg (100 mg) Not Given SUBCUT Q12H HUMAIRA Levothyroxine Sodium 75 mcg 10/04/24 06:00 10/04/24 05:21 Levothyroxine Sodium 75 Mcg Tablet PO 75 mcg DAILY@0600 HUMAIRA Administration Ticagrelor 90 mg 10/03/24 21:00 10/03/24 21:52 Ticagrelor 90 Mg Tablet PO 90 mg BID HUMAIRA Administration Discontinued Medications Generic Name Dose Route Start Last Admin Trade Name Freq PRN Reason Stop Dose Admin Enoxaparin Sodium 100 mg 10/03/24 15:44 10/03/24 16:49 Enoxaparin Sodium 100 Mg/Ml Syringe 1 mg/kg (100 mg) 10/03/24 15:45 100 mg SUBCUT Administration ONCE ONE Medical Decision Making Medical Decision Making [facility] Narrative: 53-year-old female with a past medical history as documented above presents for evaluation of chest pain. Her EKG is nonischemic and no significant change compared to her previous. Her troponin is negative. She rules out for ACS. Her Wells criteria score is a 0. Low risk for PE. She has a history of anxiety, she could have costochondritis given her recent viral illness. I did discuss with Cardiology given her significant history and previous stenting. Differential Diagnosis Differential Diagnoses: The differential diagnosis associated with the presentation includes Chest pain ACS Costochondritis Pneumonia PE less likely Admission/Observation Consideration of admission/observation: Escalation of care including admission/observation considered She rules out for ACS Consult Healthcare Provider Management of the patient was discussed with: [employer] Cardiology, Dr Morel will come see the patient Lab Data MDM Lab Attestation statement: I reviewed the patient's lab results. No leukocytosis or anemia. Normal platelet count. No significant electrolyte abnormalities. Random glucose elevated to 143. The patient is not a diabetic. Troponin negative 10/03/24 16:08 10/03/24 10:57 Labs: Lab Results 10/03/24 10/03/24 10/03/24 Range/Units 10:57 11:17 14:05 WBC 7.7 (4.8-10.8) X10*3/uL RBC 4.82 (4.20-5.50) X10*6/uL Hgb 14.0 (12.0-16.0) g/dl Hct 40.3 (37.0-47.0) % MCV 83.6 (80.0-98.0) fL MCH 29.0 (27.0-33.0) pg MCHC 34.7 (31.0-35.0) g/dl RDW 14.1 (11.0-16.0) % Plt Count 337 (160-400) X10*3/uL MPV 9.8 (9.4-12.3) fL Immature Gran % (Auto) 0.3 (0.0-0.4) % Neut % (Auto) 73.4 H (45-73) % Lymph % (Auto) 17.4 L (20-40) % [place] % (Auto) 4.8 (2-11) % Eos % (Auto) 3.4 (0-4) % Baso % (Auto) 0.7 (0-2) % Lymph # (Auto) 1.3 (1.2-4.9) X10*3/uL [place] # (Auto) 0.4 (0.1-1.2) X10*3/uL Eos # (Auto) 0.3 (0.0-0.4) X10*3/uL Baso # (Auto) 0.1 (0.0-0.2) X10*3/uL Abs Immat Gran (auto) 0.02 (0.00-0.03) X10*3/uL Absolute Neuts (auto) 5.7 (2.0-8.3) x10*3/uL Absolute Nucleated RBC 0.000 (0.0-0.012) X10*3/uL Nucleated RBC % (auto) 0.0 (0.0-0.2) /100WBC PT (10.9-12.4) SEC INR (0.9-1.1) APTT (26.0-36.8) SEC Sodium 139 (135-145) mmol/L Potassium 4.3 (3.3-5.1) mmol/L Chloride 109 H (96-108) mmol/L Carbon Dioxide 20 L (22-29) mmol/L Anion Gap 14 (12-20) BUN 13 (9-16) mg/dL Creatinine 0.68 (0.5-1.4) mg/dL Estim Creat Clear Calc 121.6 Estimated GFR > 60 Random Glucose 143 H (60-115) mg/dL Calcium 9.6 (8.4-10.2) mg/dL Magnesium 2.5 (1.6-2.6) mg/dL Troponin I High Sens < 2.7 < 2.7 (<3.5-17.0) ng/L B-Natriuretic Peptide < 10 (<100) pg/mL Urine Color Yellow Urine Appearance Clear Urine pH 6.0 (5.0-9.0) Ur Specific [place] 1.015 (1.005-1.025) Urine Protein Negative (Neg-Trace) mg/dL Urine Glucose (UA) Negative (Negative) mg/dL Urine Ketones Negative (Negative) mg/dL Urine Blood Negative (Negative) Urine Nitrite Negative (Negative) Ur Leukocyte Esterase Negative (Negative) Influenza Type A (PCR) NEGATIVE (Negative) Influenza Type B (PCR) NEGATIVE (Negative) RSV RNA Qual (PCR) NEGATIVE (Negative) SARS-CoV-2 RNA (RT-PCR) NEGATIVE (Negative) 10/03/24 10/03/24 Range/Units 16:08 17:26 WBC 7.9 (4.8-10.8) X10*3/uL RBC 5.30 (4.20-5.50) X10*6/uL Hgb 15.1 (12.0-16.0) g/dl Hct 44.7 (37.0-47.0) % MCV 84.3 (80.0-98.0) fL MCH 28.5 (27.0-33.0) pg MCHC 33.8 (31.0-35.0) g/dl RDW 14.2 (11.0-16.0) % Plt Count 353 (160-400) X10*3/uL MPV 9.8 (9.4-12.3) fL Immature Gran % (Auto) (0.0-0.4) % Neut % (Auto) (45-73) % Lymph % (Auto) (20-40) % [place] % (Auto) (2-11) % Eos % (Auto) (0-4) % Baso % (Auto) (0-2) % Lymph # (Auto) (1.2-4.9) X10*3/uL [place] # (Auto) (0.1-1.2) X10*3/uL Eos # (Auto) (0.0-0.4) X10*3/uL Baso # (Auto) (0.0-0.2) X10*3/uL Abs Immat Gran (auto) (0.00-0.03) X10*3/uL Absolute Neuts (auto) (2.0-8.3) x10*3/uL Absolute Nucleated RBC 0.000 (0.0-0.012) X10*3/uL Nucleated RBC % (auto) 0.0 (0.0-0.2) /100WBC PT 11.0 (10.9-12.4) SEC INR 0.9 (0.9-1.1) APTT 37.9 H D (26.0-36.8) SEC Sodium (135-145) mmol/L Potassium (3.3-5.1) mmol/L Chloride (96-108) mmol/L Carbon Dioxide (22-29) mmol/L Anion Gap (12-20) BUN (9-16) mg/dL Creatinine (0.5-1.4) mg/dL Estim Creat Clear Calc Estimated GFR Random Glucose (60-115) mg/dL Calcium (8.4-10.2) mg/dL Magnesium (1.6-2.6) mg/dL Troponin I High Sens (<3.5-17.0) ng/L B-Natriuretic Peptide (<100) pg/mL Urine Color Urine Appearance Urine pH (5.0-9.0) Ur Specific [place] (1.005-1.025) Urine Protein (Neg-Trace) mg/dL Urine Glucose (UA) (Negative) mg/dL Urine Ketones (Negative) mg/dL Urine Blood (Negative) Urine Nitrite (Negative) Ur Leukocyte Esterase (Negative) Influenza Type A (PCR) (Negative) Influenza Type B (PCR) (Negative) RSV RNA Qual (PCR) (Negative) SARS-CoV-2 RNA (RT-PCR) (Negative) Radiology Impression Discussion of test interpretation with radiology: I have reviewed the radiologist's reading. Radiologist Impression: FINDINGS: No consolidation, pleural effusion or pneumothorax. Cardiomediastinal silhouette size is normal. Osseous structures are intact. XR/XR chest 1V IMPRESSION: No acute airspace disease. Stable chest. Electronically signed by: Channing Pizano MD 10/03/2024 11:42 [place] [facility] [place] Discharge Clinical Impression: Chest pain, Unstable angina Patient Disposition: [facility] Transfer Details: [facility] Prescriptions: No Action nitroglycerin 0.4 mg tablet, sublingual 0.4 mg sublingual Q5M PRN (Reason: chest pain) Qty: 25 2RF Rx Instructions: do not exceed 3 doses per episode multivitamin Tablet 1 tab PO DAILY levothyroxine 75 mcg tablet 75 mcg PO DAILY aspirin [Ecotrin Low Strength] 81 mg tablet,delayed release (DR/EC) 81 mg PO DAILY Qty: 60 1RF Brilinta 90 mg tablet 90 mg PO BID Qty: 60 2RF Print Language: Norwegian
[2024-10-03 11:20] LABS: Anion Gap 14 (12-20); Blood Urea Nitrogen 13 mg/dL (9-16); Calcium 9.6 mg/dL (8.4-10.2); Carbon Dioxide 20 mmol/L (22-29); Chloride 109 mmol/L (96-108); Creatinine Clr Calc Pharmacy 121.6; Estimated Glomerular Filt Rate > 60; Glucose Random 143 mg/dL (60-115); Potassium 4.3 mmol/L (3.3-5.1); Sodium 139 mmol/L (135-145)
[2024-10-03 11:30] LABS: Troponin-I High Sensitivity < 2.7 ng/L (<3.5-17.0)
[2024-10-03 12:05] LABS: B Type Natriuretic Peptide < 10 pg/mL (<100)
[2024-10-03 12:53] LABS: Influenza A PCR NEGATIVE (Negative); Influenza B PCR NEGATIVE (Negative); Resp Syncy Virus RNA Qual PCR NEGATIVE (Negative); SARS COV2 PCR INHOUSE NEGATIVE (Negative)
[2024-10-03 13:51] VITALS: BP 118/78; PULSE 88; RESP 18; TEMP 36.4; O2SAT 99
[2024-10-03 14:17] LABS: Appearance Urine Clear; Color Urine Yellow; Glucose Urine UA Negative (Negative); Leukocyte Esterase Urine Negative (Negative); Nitrite Urine Negative (Negative); Specific Gravity - Urine 1.015 (1.005-1.025); Urine Blood Negative (Negative); Urine Ketones Negative (Negative); Urine Protein Negative (Neg-Trace)
[2024-10-03 14:30] LABS: Magnesium 2.5 mg/dL (1.6-2.6)
[2024-10-03 14:38] LABS: Troponin-I High Sensitivity < 2.7 ng/L (<3.5-17.0)
[2024-10-03 15:45] VITALS: BP 128/91; PULSE 86; RESP 16; TEMP 36.6; O2SAT 97
--- NOTE | 2024-10-03 15:48 | P.CONCA_ITS ---
History of Present Illness History of Present Illness Date of Service: 10/03/24 Requesting physician: Delta Villegas Chief complaint: Unstable angina Narrative: Pleasant 53 year female with known history of coronary artery disease with previous LAD PCI in 2022 and new plaque rupture in the LAD with PCI in 2023. She had mild ISR in the previous LAD stent done in 2022. She recently had viral infection and was getting some chest discomfort while she was tachycardic and using Sudafed. She said she has stopped using the decongestants 1 week ago but continues to get chest tightness and discomfort radiating to the jaw and left arm. These episodes are happening at rest and with activity. These symptoms are very similar to her previous presentations when she had LAD PCI done. Biomarkers are negative. EKG does not have any dynamic changes. Blood pressure was elevated on admission but currently back to normal. Compliant with medications currently. [facility] Past Medical History Medical History Coronary artery disease Shortness of breath Angina at rest Chest pain Chest pain Crescendo angina Essential hypertension Mood disorder Family History Family History Father CAD (coronary artery disease) Mother Mitral valve prolapse Other Stented coronary artery Surgical History Surgical History S/P cardiac catheterization Stented coronary artery S/P cardiac cath Hx of hysterectomy for benign disease Social History Social History Household Members: Spouse and Children Housing: House Do you presently have visiting nurse or other home services: No Alcohol intake: never Patient Tobacco Use Status: Never used Tobacco Smoked in Last 30 Days: No Use of substances other than those prescribed or required for medical reasons: No Advance Directives: Yes Advance Directives on File: Yes Advance Directives Date on File: 11/08/23 Meds Allergies Allergy/AdvReac Type Severity Reaction Status Date / Time No Known Allergies Allergy Verified 10/03/24 11:07 [No Known Allergies*] Home Medications ?Medication ?Instructions ?Recorded ?Confirmed ?Last Taken ?Type levothyroxine 75 mcg tablet 75 mcg PO DAILY 04/05/23 09/13/24 11/08/23 History multivitamin 1 tab PO DAILY 11/08/23 09/13/24 11/08/23 History bisoprolol fumarate 5 mg tablet 5 mg PO DAILY 12/14/23 09/13/24 Unknown History Physical Exam 2 Vital Signs: Vital Signs: Last Vital Signs Temp 97.8 F 10/03/24 15:45 Pulse 86 10/03/24 15:45 Resp 16 10/03/24 15:45 BP 128/91 H 10/03/24 15:45 Pulse Ox 97 10/03/24 15:45 O2 Del Method Room Air 10/03/24 15:45 BMI result Body Mass Index 31.9 GENERAL APPEARANCE: in no acute distress, pleasant. NECK: no carotid bruit, no jugular venous distention. SKIN: no suspicious lesions, warm and dry. HEART: no murmurs, regular rate and rhythm. LUNGS: clear to auscultation bilaterally. ABDOMEN: soft, nontender. EXTREMITIES: no edema. PERIPHERAL PULSES: equal. NEUROLOGIC: No gross deficits, AAO X 3 Objective Labs and Meds 10/03/24 10:57 10/03/24 10:57 Lab results: Laboratory Results - last 24 hr 10/03/24 10/03/24 10/03/24 10:57 11:17 14:05 WBC 7.7 RBC 4.82 Hgb 14.0 Hct 40.3 MCV 83.6 MCH 29.0 MCHC 34.7 RDW 14.1 Plt Count 337 MPV 9.8 Immature Gran % (Auto) 0.3 Neut % (Auto) 73.4 H Lymph % (Auto) 17.4 L [place] % (Auto) 4.8 Eos % (Auto) 3.4 Baso % (Auto) 0.7 Lymph # (Auto) 1.3 [place] # (Auto) 0.4 Eos # (Auto) 0.3 Baso # (Auto) 0.1 Abs Immat Gran (auto) 0.02 Absolute Neuts (auto) 5.7 Absolute Nucleated RBC 0.000 Nucleated RBC % (auto) 0.0 Sodium 139 Potassium 4.3 Chloride 109 H Carbon Dioxide 20 L Anion Gap 14 BUN 13 Creatinine 0.68 Estim Creat Clear Calc 121.6 Estimated GFR > 60 Random Glucose 143 H Calcium 9.6 Magnesium 2.5 Troponin I High Sens < 2.7 < 2.7 B-Natriuretic Peptide < 10 Urine Color Yellow Urine Appearance Clear Urine pH 6.0 Ur Specific [place] 1.015 Urine Protein Negative Urine Glucose (UA) Negative Urine Ketones Negative Urine Blood Negative Urine Nitrite Negative Ur Leukocyte Esterase Negative Influenza Type A (PCR) NEGATIVE Influenza Type B (PCR) NEGATIVE RSV RNA Qual (PCR) NEGATIVE SARS-CoV-2 RNA (RT-PCR) NEGATIVE Imaging Radiologist's impression: Impressions Chest X-Ray 10/03/24 11:34 IMPRESSION: No acute airspace disease. Stable chest. Electronically signed by: Channing Pizano MD 10/03/2024 11:42 AM [facility] [place] Assessment and Plan (1) Unstable angina: Status: Acute Plan Pleasant 53 year female with known history of coronary artery disease with previous LAD PCI presenting with chest pain at rest and with exertion. Story is concerning for unstable angina. She will be treated with subcutaneous Lovenox therapeutic dosing. Resume home medications including aspirin, Brilinta, isosorbide and bisoprolol. Continue atorvastatin 40 mg daily. We will add her to cardiac catheterization list for tomorrow. Keep her NPO after midnight. Hold Lovenox dose tomorrow morning. Thank you for allowing me to participate in the care of your patient. Please feel free to contact me if you have any questions. Procedures Date of Service Date of Service: 10/03/24
[2024-10-03 16:15] LABS: Hematocrit 44.7 % (37.0-47.0); Hemoglobin 15.1 g/dl (12.0-16.0); Mean Corpuscular HGB Conc 33.8 g/dl (31.0-35.0); Mean Corpuscular Hemoglobin 28.5 pg (27.0-33.0); Mean Corpuscular Volume 84.3 fL (80.0-98.0); Mean Platelet Volume 9.8 fL (9.4-12.3); Platelet Count 353 X10*3/uL (160-400); Red Cell Distribution Width 14.2 % (11.0-16.0); White Blood Count 7.9 X10*3/uL (4.8-10.8)
[2024-10-03] MEDS: Enoxaparin Sodium 100 MG/ML SYRINGE SUBCUT (16:49)
--- NOTE | 2024-10-03 17:02 | PHA.MEDREC ---
Addendum entered by Rakan Antonio 10/03/24 17:04: reviewed Original Note: Pharmacy Consult ? Medication Reconciliation Pharmacy has reviewed the medication reconciliation done by nursing. Spoke to patient to confirm med list. Patient states she no longer takes Atorvastatin 40 mg, Fluoxetine 40 mg, Isosorbide mono 30 mg, and Omeprazole 40 mg.
[2024-10-03 17:38] LABS: INTERNATIONAL NORM RATIO 0.9 (0.9-1.1)
[2024-10-03 17:40] LABS: Partial Thromboplastin Time 37.9 SEC (26.0-36.8)
[2024-10-03 18:19] VITALS: BP 138/79; PULSE 101; RESP 18; O2SAT 97
[2024-10-03 20:09] VITALS: BP 141/83; PULSE 100; RESP 18; TEMP 36.7; O2SAT 94
--- NOTE | 2024-10-03 20:32 | PC.NURSE ---
Patient transferred into hospital bed. Plan for patient to be transferred to [facility] inpatient when bed is available. Mishel SHEIKH just checked in w/ [facility], no bed yet no ETA.
[2024-10-03] MEDS: Ticagrelor 90 MG TABLET PO (21:52)
--- NOTE | 2024-10-03 21:55 | PC.NURSE ---
Spoke to patient again about her home medications, asked when she stopped taking her BP meds, per patient around july, when inquired as to why she stated she just didn't like taking so many medications. Provider made aware.
[2024-10-03 23:01] VITALS: BP 121/77; PULSE 96; RESP 16; TEMP 36.8; O2SAT 95
[2024-10-04 02:07] VITALS: BP 123/91; PULSE 105; RESP 14; TEMP 36.6; O2SAT 96
[2024-10-04] MEDS: Levothyroxine Sodium 75 MCG TABLET PO (05:21)
[2024-10-04 05:22] VITALS: BP 131/88; PULSE 97; RESP 18; TEMP 36.6; O2SAT 95
--- NOTE | 2024-10-04 05:39 | PC.NURSE ---
update from [facility], patient is second patient to receive a bed on the floor she will be admitted to. pending 2 discharges at [facility].
[2024-10-04] MEDS: Ticagrelor 90 MG TABLET PO (08:38)
[2024-10-04] MEDS: Aspirin Enteric Coated 81 MG TABLET.DR PO (08:38)
[2024-10-04] MEDS: Multivitamin TABLET 1 TAB PO (08:40)
[2024-10-04 11:47] LABS: Hematocrit 42.6 % (37.0-47.0); Hemoglobin 14.6 g/dl (12.0-16.0); Mean Corpuscular HGB Conc 34.3 g/dl (31.0-35.0); Mean Corpuscular Hemoglobin 28.6 pg (27.0-33.0); Mean Corpuscular Volume 83.4 fL (80.0-98.0); Mean Platelet Volume 9.8 fL (9.4-12.3); Platelet Count 359 X10*3/uL (160-400); Red Blood Count 5.11 X10*6/uL (4.20-5.50); Red Cell Distribution Width 13.9 % (11.0-16.0); White Blood Count 6.8 X10*3/uL (4.8-10.8)
[2024-10-04 12:02] VITALS: BP 143/95; PULSE 100; RESP 14; TEMP 36.6; O2SAT 95
--- NOTE | 2024-10-04 13:38 | MHC.EDTECH ---
THIS PCT CALLS [facility]IENT [facility]AC[facility] AND SPEAKS WITH JAMAAL TO INQUIRE ABOUT BED ASSIGNMENT. JAMAAL STATES THAT NO BED IS READY AT THIS TIME BUT ONE WILL BE AVAILABLE LATER TODAY
[2024-10-04 15:00] VITALS: BP 143/95; PULSE 100; RESP 14; TEMP 36.6; O2SAT 95
== END 2024-10-04 15:01 | disposition short-term general hospital (02) ==
PROVIDERS: Physician Assistant; Emergency Provider Emergency Medicine; PCP Internal Medicine
DX: I20.0 Unstable angina (principal); R07.9 Chest pain, unspecified; R00.0 Tachycardia, unspecified; R06.02 Shortness of breath; I10 Essential (primary) hypertension; J45.909 Unspecified asthma, uncomplicated; Z03.818 Encounter for observation for suspected exposure to other biological agents ruled out; Z79.82 Long term (current) use of aspirin; Z79.899 Other long term (current) drug therapy
CPT/HCPCS: 0241U; 36415; 71045; 80048; 81003; 83735; 83880; 84484; 85025; 85027; 85610; 85730; 93005; 96372; 99285; J1650

== ENCOUNTER → 2024-10-03 11:12 | Outpatient (BNV) | payer OTHER, SELFPAY | PROVIDERS: PCP Internal Medicine; Visit Provider Radiology Diagnostic Radiology | DX: R07.9 Chest pain, unspecified (principal) | CPT/HCPCS: 71045 ==

== ENCOUNTER → 2024-10-03 11:17 | Outpatient (BNV) | payer OTHER, SELFPAY | PROVIDERS: Emergency Provider Emergency Medicine; PCP Internal Medicine; Visit Provider Internal Medicine Cardiovascular Disease | DX: I20.0 Unstable angina (principal) | CPT/HCPCS: 93010; 99283 ==

== ENCOUNTER → 2024-10-04 23:59 | Outpatient (BNV) | payer OTHER, SELFPAY | PROVIDERS: PCP Internal Medicine; Visit Provider Internal Medicine Cardiovascular Disease | DX: I20.0 Unstable angina (principal) | CPT/HCPCS: 93458; 99152 ==

== ENCOUNTER 2025-01-29 12:56 | Outpatient (AMB) | payer OTHER, SELFPAY ==
--- NOTE | 2025-01-29 13:08 | A.OFFPC_ITS ---
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 Required: No Accompanied by: Self / Same As Patient Allergies No Known Allergies (No Known Allergies*) Allergy (Verified 01/29/25 13:51) Medication List - Last Reconciled 01/29/25 by Maynor Hwang MD aspirin (Ecotrin Low Strength) 81 mg PO DAILY atorvastatin 80 mg PO DAILY fluoxetine 40 mg PO DAILY levothyroxine 75 mcg PO DAILY multivitamin 1 tab PO DAILY nitroglycerin 0.4 mg sublingual Q5M PRN ticagrelor (Brilinta) 90 mg PO BID Tobacco use date assessed: 01/29/25 Dental Screening Dental Screen Date: 01/29/25 Did you have a dental visit in the last 12 months?: Yes Did you have a dental problem in the last 6 months where you did not have access to dental care?: No PFSH Medical History (Updated 01/29/25 @ 13:52 by Maynor Hwang MD) TMJ dysfunction Coronary artery disease Shortness of breath Angina at rest Chest pain Chest pain Crescendo angina Essential hypertension Mood disorder Surgical History S/P cardiac catheterization Stented coronary artery S/P cardiac cath Hx of hysterectomy for benign disease Family History (Updated 01/29/25 @ 13:23 by Tiffanie Mcbride MA) Father CAD (coronary artery disease) Mother Mitral valve prolapse Other Stented coronary artery Social History Household Members: Spouse and Children Housing: House Do you presently have visiting nurse or other home services: No Alcohol intake: never Patient Tobacco Use Status: Never used Tobacco e-Cigarette/Vaping Use: Never Used Advance Directives Date on File: 11/08/23 service: No Current occupational status: employed Cognitive needs: No Hearing needs: No Vision needs: Yes (rx glasses) Questionnaire PHQ-9 Over the last 2 weeks, how often have you been bothered by any of the following problems? 1. Little interest or pleasure in doing things: not at all 2. Feeling down, depressed, or hopeless: not at all 3. Trouble falling or staying asleep, or sleeping too much: not at all 4. Feeling tired or having little energy: not at all 5. Poor appetite or overeating: not at all 6. Feeling bad about yourself - or that you are a failure or have let yourself or your family down: not at all 7. Trouble concentrating on things, such as reading the newspaper or watching television: not at all 8. Moving or speaking so slowly that other people could have noticed. Or the opposite - being so fidgety or restless that you have been moving around a lot more than usual: not at all 9. Thoughts that you would be better off or of hurting yourself in some way: not at all Total score: 0 Source: Developed by Drs. Ab De Santiago, Jacqueline Oro, Blake Jordan and colleagues, with an educational adama from [employer]. Thrive Questionnaire Date Thrive assessed: 01/29/25 I am a: Patient Within the past 12 months, did the food you bought not last and you didn't have the money to get more?: Never true Within the past 12 months, did you worry whether your food would run out before you got money to buy more?: Never true Do you have trouble paying for medicines?: No Do you have trouble getting transportation to medical appointments?: No Do you have trouble paying your heating and electricity bill?: No Do you have trouble taking care of your child, family member or friend?: No Do you have trouble with day-to-day activities such as bathing, preparing meals, shopping, managing finances, etc.?: No Are you currently unemployed and looking for a job?: No Are you interested in more education?: No THRIVE Score: 0 AUDIT C Alcohol Use Questionnaire (AUDIT-C) 1. How often do you have a drink containing alcohol?: Never 3. How often do you have six or more drinks on one occasion?: Never Total Score: 0 JADEN-7 AMB Questionnaire JADEN-7 Date JADEN - 7 assessed: 01/29/25 Feeling nervous, anxious, or on edge: 0 = Not at all Not being able to stop or control worryin = Not at all Worrying too much about different things: 0 = Not at all Trouble relaxin = Not at all Being so restless that it is hard to sit still: 0 = Not at all Becoming easily annoyed or irritable: 0 = Not at all Feeling afraid as if something awful might happen: 0 = Not at all Total JADEN-7 score (0-4 normal; 5-9 mild; 10-14 moderate; 15-21 severe): 0 Source: Developed by Drs. Ab De Santiago, Jacqueline Oro, Blake Jordan and colleagues, with an educational adama from [employer]. Physical exam (Primary Care) Vital Signs: Last Vital Signs Temp 98 F 01/29/25 13:17 Pulse 91 01/29/25 13:17 BP 134/82 01/29/25 13:17 Pulse Ox 98 01/29/25 13:17 Oxygen Delivery Method Room Air 01/29/25 13:17 BMI result Body Mass Index 31.9 Tobacco/Smoking Status: Tobacco use Status Tobacco use date assessed 01/29/25 01/29/25 13:09 Patient Tobacco Use Status Never used Tobacco 01/29/25 13:09 e-Cigarette/Vaping Use Never Used 01/29/25 13:09 PHQ-9: PHQ-9 Score PHQ-9: Total score 0 01/29/25 13:09 Thrive Assessment: Date of Thrive Assessment Date Thrive assessed 01/29/25 01/29/25 13:09 Coding Level of Care Code New Pt Level 4 (26634) Complex EM visit Add On G2211 Diagnoses TMJ dysfunction M26.609 Assessment & Plan Assessment & Plan (1) TMJ dysfunction: Code(s): M26.609 - Unspecified temporomandibular joint disorder, unspecified side Category: Medical Plan: Meloxicam once a day for two weeks. Follow up in two weeks Plan History of Present Illness - The patient is a 54-year-old female presenting with jaw pain and suspected temporomandibular joint disorder. - The patient initially experienced a bilateral ear infection approximately six weeks ago, for which she received antibiotics at a walk-in clinic. - Following the resolution of the ear infection, the patient developed severe p ain localized to the right jaw, radiating to the ear, which was initially suspected to be another ear infection. - The patient was diagnosed with an infected salivary gland and completed a second course of antibiotics, which did not alleviate the pain. - The patient reports that the pain worsens with chewing and clenching, and she has completed two courses of antibiotics with minimal improvement. - The patient has not had a colonoscopy and has a mammogram scheduled for April. Social History - Employment: Works at the [employer]. Review of Systems - General: Reports fatigue, denies fever or chills. - Head and Neck: Reports jaw pain, denies ear infection. - Musculoskeletal: Reports pain in the right temporomandibular joint, worsens with chewing and clenching. Physical Exam General: Cooperative and healthy appearing Nutritional Appearance: Well nourished Orientation/consciousness: Patient oriented x3 Limitations: No limitations Head: Normal to inspection General: Appearance normal, both eyes and all related structures Neck: Normal visual inspection Chest: Normal palpation of entire chest wall Respiratory: N ormal respiratory effort Neurology: Patient oriented x3, reports feeling very tired. Results Plan 1. Temporomandibular Joint Disorder (Tmj) - Initiate a two-week course of anti-inflammatory medication to manage inflammation of the temporomandibular joint. - Advise the patient to avoid activities that exacerbate the pain, such as clenching. Discussion Notes I discussed with the patient that her symptoms are consistent with te mporomandibular joint disorder, likely due to inflammation. I recommended a two- week course of anti-inflammatory medication and advised avoiding activities that may worsen the pain, such as clenching. We also discussed the importance of scheduling a colonoscopy and confirmed her upcoming mammogram appointment. Patient Instructions - Take the prescribed anti-inflammatory medication daily for two weeks. - Avoid clenching your jaw or other activities that increase pain. - Schedule a colonoscopy as soon as possible. - Attend your upcoming mammogram appointment in April.
[2025-01-29 13:17] VITALS: BP 134/82; PULSE 91; TEMP 36.6; O2SAT 98; BMI 31.9
== END 2025-01-29 13:49 | disposition home or self-care (01) ==
LOC: HO.HMCHD 12:56
PROVIDERS: PCP Internal Medicine; Visit Provider Internal Medicine
DX: M26.609 Unspecified temporomandibular joint disorder, unspecified side (principal)

== ENCOUNTER → 2025-01-29 12:56 | Outpatient (BNVA) | payer OTHER, SELFPAY | PROVIDERS: PCP Internal Medicine; Visit Provider Internal Medicine | DX: Z13.89 Encounter for screening for other disorder (principal) ==

== ENCOUNTER 2025-01-30 08:11 | Outpatient (REF) | payer OTHER, SELFPAY ==
[2025-01-30 08:38] LABS: Hemoglobin 14.3 g/dl (12.0-16.0); Mean Corpuscular Hemoglobin 28.4 pg (27.0-33.0); Mean Corpuscular Volume 83.5 fL (80.0-98.0); Mean Platelet Volume 9.9 fL (9.4-12.3); Platelet Count 299 X10*3/uL (160-400); Red Blood Count 5.03 X10*6/uL (4.20-5.50); Red Cell Distribution Width 13.9 % (11.0-16.0); White Blood Count 7.5 X10*3/uL (4.8-10.8)
[2025-01-30 09:31] LABS: Alanine Aminotransferase 57 U/L (0-31); Albumin Level 4.7 g/dL (3.5-5.0); Alkaline Phosphatase 161 U/L (39-117); Anion Gap 13 (12-20); Aspartate Amino Transferase 41 U/L (5-31); Bilirubin Direct 0.2 mg/dL (0.0-0.5); Bilirubin Total 0.6 mg/dL (0.0-1.0); Blood Urea Nitrogen 11 mg/dL (9-16); Calcium 9.4 mg/dL (8.4-10.2); Carbon Dioxide 22 mmol/L (22-29); Chloride 109 mmol/L (96-108); Cholesterol 178 mg/dL (<200); Estimated Glomerular Filt Rate > 60; Glucose Random 113 mg/dL (60-115); HDL Cholesterol 45 mg/dL (>40); LDL Cholesterol Calculated 99 mg/dL (<100); Potassium 4.3 mmol/L (3.3-5.1); Sodium 140 mmol/L (135-145); Total Protein 7.6 g/dL (6.5-8.0); Triglycerides 170 mg/dL (<150)
[2025-01-30 09:34] LABS: Thyroid Stimulating Hormone 1.99 uIU/mL (0.32-4.0)
[2025-01-30 09:51] LABS: Appearance Urine Cloudy; Color Urine Yellow; Glucose Urine UA Negative (Negative); Leukocyte Esterase Urine Negative (Negative); Nitrite Urine Negative (Negative); PH 5.5 (5.0-9.0); Urine Blood Negative (Negative); Urine Ketones Trace mg/dL (Negative); Urine Protein Negative (Neg-Trace)
== END 2025-01-30 08:12 | disposition home or self-care (01) ==
LOC: HO.LAB 08:11
PROVIDERS: PCP Internal Medicine; Visit Provider Internal Medicine
DX: M26.609 Unspecified temporomandibular joint disorder, unspecified side (principal)
CPT/HCPCS: 36415; 80048; 80061; 80076; 81003; 84443; 85027

== ENCOUNTER 2025-02-12 15:34 | Outpatient (AMB) | payer OTHER, SELFPAY ==
[2025-02-12 10:27] VITALS: BP 122/74; PULSE 95; TEMP 36.6; O2SAT 98; BMI 32.1
--- NOTE | 2025-02-12 10:27 | MHC.PC.OV ---
Vital Signs 02/12/25 10:27 Height 5 ft 10 in Weight 224 lb BMI 32.1 BP 122/74 Blood Pressure Location Lt brachial Position Sitting Pulse 95 Pulse Source Pulse Oximeter Temp 97.8 F Temp Source Axillary Pulse Oximetry (%) 98 Oxygen Delivery Method Room Air Intake Visit Reasons: 2 wk f/u Parts Identifier Required: No Accompanied by: Self / Same As Patient Allergies No Known Allergies (No Known Allergies*) Allergy (Verified 02/12/25 10:27) Tobacco use date assessed: 02/12/25 Dental Screening Dental Screen Date: 02/12/25 Did you have a dental visit in the last 12 months?: Yes Did you have a dental problem in the last 6 months where you did not have access to dental care?: No PFSH Medical History TMJ dysfunction Coronary artery disease Shortness of breath Angina at rest Chest pain Chest pain Crescendo angina Essential hypertension Mood disorder Surgical History S/P cardiac catheterization Stented coronary artery S/P cardiac cath Hx of hysterectomy for benign disease Family History Father CAD (coronary artery disease) Mother Mitral valve prolapse Other Stented coronary artery Social History Household Members: Spouse and Children Housing: House Do you presently have visiting nurse or other home services: No Alcohol intake: never Patient Tobacco Use Status: Never used Tobacco e-Cigarette/Vaping Use: Never Used Advance Directives Date on File: 11/08/23 service: No Current occupational status: employed Cognitive needs: No Hearing needs: No Vision needs: Yes (rx glasses) Questionnaire PHQ-9 Over the last 2 weeks, how often have you been bothered by any of the following problems? 1. Little interest or pleasure in doing things: not at all 2. Feeling down, depressed, or hopeless: not at all 3. Trouble falling or staying asleep, or sleeping too much: not at all 4. Feeling tired or having little energy: not at all 5. Poor appetite or overeating: not at all 6. Feeling bad about yourself - or that you are a failure or have let yourself or your family down: not at all 7. Trouble concentrating on things, such as reading the newspaper or watching television: not at all 8. Moving or speaking so slowly that other people could have noticed. Or the opposite - being so fidgety or restless that you have been moving around a lot more than usual: not at all 9. Thoughts that you would be better off or of hurting yourself in some way: not at all Total score: 0 Source: Developed by Drs. Ab De Santiago, Jacqueline Oro, Blake Jordan and colleagues, with an educational adama from [employer]. Thrive Questionnaire Date Thrive assessed: 02/12/25 I am a: Patient Within the past 12 months, did the food you bought not last and you didn't have the money to get more?: Never true Within the past 12 months, did you worry whether your food would run out before you got money to buy more?: Never true Do you have trouble paying for medicines?: No Do you have trouble getting transportation to medical appointments?: No Do you have trouble paying your heating and electricity bill?: No Do you have trouble taking care of your child, family member or friend?: No Do you have trouble with day-to-day activities such as bathing, preparing meals, shopping, managing finances, etc.?: No Are you currently unemployed and looking for a job?: No Are you interested in more education?: No THRIVE Score: 0 AUDIT C Alcohol Use Questionnaire (AUDIT-C) 1. How often do you have a drink containing alcohol?: Never 3. How often do you have six or more drinks on one occasion?: Never Total Score: 0 JADEN-7 AMB Questionnaire JADEN-7 Date JADEN - 7 assessed: 02/12/25 Feeling nervous, anxious, or on edge: 0 = Not at all Not being able to stop or control worryin = Not at all Worrying too much about different things: 0 = Not at all Trouble relaxin = Not at all Being so restless that it is hard to sit still: 0 = Not at all Becoming easily annoyed or irritable: 0 = Not at all Feeling afraid as if something awful might happen: 0 = Not at all Total JADEN-7 score (0-4 normal; 5-9 mild; 10-14 moderate; 15-21 severe): 0 Source: Developed by Drs. Ab De Santiago, Jacqueline Oro, Blake Jordan and colleagues, with an educational adama from [employer]. Physical exam (Primary Care) Vital Signs: Last Vital Signs Temp 97.8 F 02/12/25 10:27 Pulse 95 02/12/25 10:27 BP 122/74 02/12/25 10:27 Pulse Ox 98 02/12/25 10:27 Oxygen Delivery Method Room Air 02/12/25 10:27 BMI result Body Mass Index 32.1 Tobacco/Smoking Status: Tobacco use Status Tobacco use date assessed 02/12/25 02/12/25 10:29 Patient Tobacco Use Status Never used Tobacco 02/12/25 10:29 e-Cigarette/Vaping Use Never Used 02/12/25 10:29 PHQ-9: PHQ-9 Score PHQ-9: Total score 0 02/12/25 15:42 Thrive Assessment: Date of Thrive Assessment Date Thrive assessed 02/12/25 02/12/25 10:29 Coding Level of Care Code Est Pt Level 4 (78317) Complex EM visit Add On G2211 Diagnoses Hepatitis K75.9 TMJ dysfunction M26.609 Assessment & Plan Assessment & Plan (1) Hepatitis: Code(s): K75.9 - Inflammatory liver disease, unspecified Plan: BW ordered. US abd requested (2) TMJ dysfunction: Code(s): M26.609 - Unspecified temporomandibular joint disorder, unspecified side Category: Medical Plan: History of Present Illness - The patient is a 54-year-old female presenting with temporomandibular joint dysfunction and elevated liver enzymes. - Temporomandibular Joint Dysfunction: The patient experienced jaw pain, which improved significantly after a two-week course of anti-inflammatory medication. - Elevated Liver Enzymes: Blood tests showed elevated liver enzymes, with a history of similar findings in previous tests. - Obesity: The patient is considering weight loss options, including GLP-1 receptor agonists, and has a goal to lose 60 pounds. Social History - The patient has a history of wearing braces as a child, which affects her current use of a mouthguard. - The patient is considering dietary changes such as reducing carbohydrate intake and intermittent fasting to aid in weight loss. Review of Systems - General: Reports feeling a little run down. Denies any severe symptoms. - Gastrointestinal: Denies any symptoms related to liver enlargement. Physical Exam General: Cooperative and healthy appearing Nutritional Appearance: Well nourished Orientation/consciousness: Patient oriented x3 Limitations: No limitations Head: Normal to inspection General: Appearance normal, both eyes and all related structures Neck: Normal visual inspection Chest: Normal palpation of entire chest wall Respiratory: N ormal respiratory effort Neurology: Patient oriented x3, no liver enlargement Results - Labs: Elevated liver enzymes, specifically alkaline phosphatase, noted in recent and previous blood work. Plan 1. Temporomandibular Joint Dysfunction - Continue monitoring symptoms and use anti-inflammatory medication as needed. - Consider using a mouthguard if symptoms persist, despite discomfort. 2. Elevated Liver Enzymes - Plan to perform an abdominal ultrasound to check for gallstones. - Conduct hepatitis screening for types A, B, and C. 3. Obesity - Discussed the potential use of GLP-1 receptor agonists for weight loss, pending insurance approval. - Recommended dietary modifications, including reduced carbohydrate intake and intermittent fasting. Discussion Notes I discussed with the patient the diagnosis of temporomandibular joint dysfunction and the management plan, including the use of anti-inflammatory medication and the potential use of a mouthguard. We also reviewed the elevated liver enzymes, and I recommended an abdominal ultrasound and hepatitis screening. For weight management, we discussed the use of GLP-1 receptor agonists, dietary changes, and intermittent fasting. I advised the patient to follow up based on the results of the ultrasound and blood tests. Patient Instructions - Use anti-inflammatory medication as needed for jaw pain. - Consider using a mouthguard if jaw pain persists. - Follow up with an abdominal ultrasound and hepatitis screening as discussed. - Explore dietary changes such as reducing carbohydrates and trying intermittent fasting. - Contact the pharmacy regarding the GLP-1 receptor agonist prescription and follow up with the clinician if insurance does not cover it. Orders: Orders Hepatitis A,B,C Profile 02/12/25 K75.9 - Inflammatory liver disease, unspecified US abdomen complete 02/12/25 K75.9 - Inflammatory liver disease, unspecified Medications: New semaglutide (weight loss) (Wegovy) administer weeks 1 through 4 of therapy 0.25 mg (0.5 mL) subcut QWEEK 2 mL 0RF 4 weeks
== END 2025-02-12 16:04 | disposition home or self-care (01) ==
LOC: HO.HMCHD 15:35
PROVIDERS: PCP Internal Medicine; Visit Provider Internal Medicine
DX: K75.9 Inflammatory liver disease, unspecified (principal); M26.609 Unspecified temporomandibular joint disorder, unspecified side

== ENCOUNTER 2025-03-10 07:54 | Outpatient (REF) | payer OTHER, SELFPAY ==
--- NOTE | ~2025-03-10 | US_ITS ---
EXAMINATION: US ABDOMEN HISTORY: K75.9 - Inflammatory liver disease, unspecified TECHNIQUE: Real-time grayscale ultrasound imaging of the abdomen was performed and images were reviewed. COMPARISON: There are no prior studies available for comparison. FINDINGS: Liver: The right lobe of the liver measures 19.5 cm in size. The left lobe of the liver measures 11.8 cm in size. The liver demonstrates increased echotexture, consistent with steatosis. No focal mass or intrahepatic biliary ductal dilatation is identified. There is normal hepatopedal flow in the portal vein. Gallbladder and biliary tree: The gallbladder is unremarkable, without evidence of calculi, wall thickening, or pericholecystic fluid. There is no sonographic Guerrero sign. The common bile duct is normal in caliber measuring 2 mm. Kidneys: The right kidney measures 11.2 cm in length. The left kidney measures 10.7 cm in length. The kidneys are unremarkable, without evidence of masses, hydronephrosis, or calculi. Pancreas: The pancreatic head, neck, and body are unremarkable. The pancreatic tail is obscured by bowel gas. Spleen: The spleen is normal in size and contour, measuring 12.9 cm in length. Abdominal aorta and inferior vena cava: The visualized portions of the abdominal aorta and inferior vena cava are normal in caliber. There is no free fluid in the abdomen. US/US abdomen complete IMPRESSION: Hepatosplenomegaly and hepatic steatosis. Electronically signed by: Ab Staples MD 03/10/2025 08:38 AM EDT
--- OUTSIDE RECORDS SUMMARY | 2025-03-10 07:57 | XMS_ITS | Encounter Summary ---
Author Organization [facility] Address [address] [place] [phone] Phone Care Team Providers Care Bond Trader Name Role Phone Seymour Mitchell MD Primary Care Provider Maynor Hwang MD Primary Care Provid er Encounter Details Date Type Department Care Team (Late st Contact Info) Description 06/16/2020 Procedure Pass [address] [address] Social History Tobacco Use Types Packs/Day Years Used Date Smoking Tobacco: Never Smokeless Tobacco: Never Alcohol Use Standard Drinks/Week Comments Not Currently 0 (1 standard drink = 0.6 oz pur e alcohol) Comments No Sex and Gender Information Value Date Recorded Sex Assigned at Female 02/24/2022 11:24 AM EDT Legal Sex Female 9:35 PM EDT Gender Identity Female 02/24/2022 11:24 AM EDT Sexual Orientation Straight 06/27/2023 4: 16 PM EST documented as of this encounter Plan of Treatment Upcoming Encounters Date Type Department Care Team (Late st Contact Info) Description 10/01/2024 Procedure Pass [address] [place] [id number] 04/11/2025 1:45 PM EDT Appointment [address] [place] [address] Mio Severino MD [address] [facility] [address] [place] [address] [email or web address] documented as of this encounter Visit Diagnoses Not on filedocumented in this encounter Additional Health Concerns Infection Onset Date Last Indicated Resolved Time CoV-Risk Comment:Per Ambulatory Triage Form 08/15/2021 08/15/202108/25 1:24 AM EST documented as of this encounter Care Teams Bond Trader Relationship Specialty Start Date End Date Seymour Mitchell MD [address] [place] [id number] PCP - General 08/10/17 12/25/24 Maynor Hwang MD [address] [place] [phone] PCP - General Internal Medicine 12/26/24 documented as of this encounter Additional Source Comments The information contained in this document represents components of the legal health record. It is not the complete legal health record.[facility]
== END 2025-03-10 07:55 | disposition home or self-care (01) ==
LOC: HO.US 07:54
PROVIDERS: PCP Internal Medicine; Visit Provider Internal Medicine
DX: K75.9 Inflammatory liver disease, unspecified (principal)
CPT/HCPCS: 76700

== ENCOUNTER → 2025-03-10 07:56 | Outpatient (BNV) | payer OTHER, SELFPAY | PROVIDERS: PCP Internal Medicine; Visit Provider Radiology Diagnostic Radiology | DX: R16.2 Hepatomegaly with splenomegaly, not elsewhere classified (principal); K76.0 Fatty (change of) liver, not elsewhere classified | CPT/HCPCS: 76700 ==

== ENCOUNTER 2025-05-07 08:23 | Outpatient (AMB) | payer OTHER, SELFPAY ==
--- OUTSIDE RECORDS SUMMARY | 2010-02-04 | XMS_ITS | Encounter Summary ---
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 Not on regla e 12/02/2022 Are you concerned about learning? Not on file 12/02/2022 No 12/02/2022 No 12/02/2022 Digital Access Answer Date Recorded No 12/31/2022 No 12/31/2022 Reliable internet access at home? Not on file 12/31/2022 Device with a working camera? Not on file Intimate Partner Violence Answer Date R ecorded Are you denied basic needs s uch as food, clothing, or medical care? No 06/27/2023 In the past 12 months have y ou been in a relationship with a person who hurts, threatens, or tries to control you? No 06/27/2023 Are you denied basic needs s uch as food, clothing, or medical care? No 06/27/2023 In the past 12 months have y ou been in a relationship with a person who hurts, threatens, or tries to control you? No 06/27/2023 Comments No Sex and Gender Information Value Date Recorded Sex Assigned at Female 02/24/2022 11:24 AM EDT Legal Sex Female 9:35 PM EDT Gender Identity Female 02/24/2022 11:24 AM EDT Sexual Orientation Straight 06/27/2023 4: 16 PM EST documented as of this encounter Functional Status * Calculated C-SSRS Risk Score (Lifetime/Recent) Answer Date of Assessment Author No Risk Indicated 02/24/2022 11:24 AM EDT Star Ingram CNP * [place] Suicide Severity Rating Scale (Screener/Recent Self-Report) Question Answer Date of Assessment Author 1. Wish to be (Past 1 Month) No 02/24/2022 11:24 AM EDT Star Ingram CNP 2. Non-Specific Active Suicidal Thoughts (Past 1 Month) No 02/24/2022 11:24 AM EDT Star Ingram CNP 6. Suicidal Behavior (Lifetime) No 02/24/2022 11:24 AM EDT Star Ingram CNP documented as of this encounter Plan of Treatment Not on file documented as of this encounter Procedures Procedure Name Priority Date/Time Associated Diagnosis Comments BI MAMMOGRAM OUTSIDE (NO INTERPRETATION) Routine 02/04/2010 12:00 AM EDT documented in this encounter Results * Mammogram Outside (No Interpretation) (02/04/2010 12:00 AM EDT) Narrative SYSTEMGENERATED, DOCUMENTATION - 07/06/2020 8:37 AM EST This study is for PACS storage only and not for interpretation. us Provider Not In System [facility] OUTSIDE IMAGING W /OUT INTERPRETATION Final Result documented in this encounter Visit Diagnoses Not on filedocumented in this encounter Additional Health Concerns Infection Onset Date Last Indicated Resolved Time CoV-Risk Comment:Per Ambulatory Triage Form 08/15/2021 08/15/202108/25 1:24 AM EST documented as of this encounter Additional Source Comments The information contained in this document represents components of the legal health record. It is not the complete legal health record.[facility]
--- OUTSIDE RECORDS SUMMARY | 2012-12-06 | XMS_ITS | Encounter Summary ---
Author Organization [facility] Address [address] [place] [id number] Phone Care Team Providers Care Court Manager Name Role Phone Unavailable Primary Care Provider Unavailabl e Encounter Details Date Type Department Care Team (Late st Contact Info) Description 12/06/2012 Hospital Encounter [facility],Outside Imaging [address] [place] [address] System, Provider Not In, [facility] [address] [address] Social History Tobacco Use Types Packs/Day Years [...] 11:24 AM EDT Star Ingram CNP * [place] Suicide Severity Rating Scale (Screener/Recent Self-Report) Question [...] Comments BI MAMMOGRAM OUTSIDE (NO INTERPRETATION) Routine 12/06/2012 12:00 AM EDT documented in this encounter Results * Mammogram Outside (No Interpretation) (12/06/2012 12:00 AM EDT) Narrative SYSTEMGENERATED, DOCUMENTATION - 07/10/2020 9:58 AM EST This study is for PACS [...] is not the complete legal health record.[facility]
--- NOTE | 2025-05-07 07:45 | MHC.PC.OV ---
Vital Signs 05/07/25 08:28 Height 5 ft 10 in Weight 212 lb 0.5 oz BMI 30.4 BP 126/82 Blood Pressure Location Rt brachial Position Sitting Respiration 16 Pulse 89 Pulse Source Pulse Oximeter Temp 97.6 F Temp Source Temporal Artery Scan Pulse Oximetry (%) 97 Oxygen Delivery Method Room Air Intake Visit Reasons: HAKEEM Dr Mitchell/Dr Powell Sports Marketing Specialist Required: No Accompanied by: Self / Same As Patient Allergies No Known Allergies (No Known Allergies*) Allergy (Verified 05/07/25 07:46) Tobacco use date assessed: 01/29/25 Dental Screening Dental Screen Date: 05/07/25 Did you have a dental visit in the last 12 months?: Yes Did you have a dental problem in the last 6 months where you did not have access to dental care?: No Was dental information given to patient?: Patient has dentist HPI HPI Comments History of Present Illness Details The patient is a 54-year-old female presenting for a follow-up on coronary artery disease, management of hypothyroidism, and evaluation of liver function. The patient has a history of hyperlipidemia and is currently being treated with atorvastatin 80 mg for cholesterol management. The coronary artery disease is managed with aspirin 81 mg, and the patient has had two stents placed in the LAD artery. She denies any history of myocardial infarctions. Isosorbide mononitrate is also being administered for blood pressure and heart health maintenance. She reports hypothyroidism managed with levothyroxine 75 mcg, under the care of Dr. Cespedes. Additionally, she is on Brilinta (ticagrelor) following the placement of two stents, having been on it for more than two years. The patient inquires about the continuation of this medication and plans to discuss this with her credit risk analytics manager, Dr. Hernandez. The patient has been diagnosed with nonalcoholic fatty liver disease, with past liver ultrasound findings confirming this. In light of this, her liver function tests will be discussed as they have shown elevated liver enzymes. She believes her recent weight loss, achieved through lifestyle changes and medication named Phentermine (Zepbound), might improve her condition. Regarding weight management, the patient reports a successful 12-pound weight reduction and remains proactive in this regard. She aims for further healthy lifestyle modifications with a goal of potentially reducing medication reliance. Medical History: - Coronary artery disease with stent placement in the LAD artery - Hyperlipidemia - Hypothyroidism - Nonalcoholic fatty liver disease Surgical History: - Stent placement in the LAD artery (twice) Medications: - Atorvastatin 80 mg for hyperlipidemia - Aspirin 81 mg for coronary artery disease - Isosorbide mononitrate for coronary artery disease and hypertension - Levothyroxine 75 mcg for hypothyroidism - Brilinta (twice daily) post coronary artery stents - Phentermine (Zepbound) for weight loss Diagnostic Results: - Tests: Liver ultrasound from March indicated fatty liver Social History: - Patient actively engaged in weight loss program - Consumes a healthy diet and exercises regularly - Striving for lifestyle changes to reduce medication dependency [facility] Medical History (Updated 05/07/25 @ 08:51 by Jose Juan Grjialva MD) Elevated liver enzymes Essential hypertension Hypothyroidism Hyperlipidemia TMJ dysfunction Coronary artery disease Shortness of breath Angina at rest Chest pain Chest pain Crescendo angina Mood disorder Surgical History S/P cardiac catheterization Stented coronary artery S/P cardiac cath Hx of hysterectomy for benign disease Family History Father CAD (coronary artery disease) Mother Mitral valve prolapse Other Stented coronary artery Social History Household Members: Spouse and Children Housing: House Do you presently have visiting nurse or other home services: No Alcohol intake: never Patient Tobacco Use Status: Never used Tobacco e-Cigarette/Vaping Use: Never Used Advance Directives Date on File: 11/08/23 service: No Current occupational status: employed Current occupation: [employer] Cognitive needs: No Hearing needs: No Vision needs: Yes (rx glasses) Questionnaire Thrive Questionnaire Date Thrive assessed: 01/29/25 JADEN-7 AMB Questionnaire JADEN-7 Date JADEN - 7 assessed: 01/29/25 Source: Developed by Drs. Ab De Santiago, Jacqueline Oro, Blake Jordan and colleagues, with an educational adama from [employer]. Review of Systems Const Details: - Cardiovascular: Denies myocardial infarctions but reports history of stent placements in the LAD - Endocrine: Denies heat or cold intolerance, denies changes in hands becoming sweaty - Gastrointestinal: Reports previous findings of fatty liver - General: Reports successful weight loss of 12 pounds All systems reviewed & are unremarkable except as reviewed in HPI and above Physical exam (Primary Care) Vital Signs: Last Vital Signs Temp 97.6 F 05/07/25 08:28 Pulse 89 05/07/25 08:28 Resp 16 05/07/25 08:28 BP 126/82 05/07/25 08:28 Pulse Ox 97 05/07/25 08:28 Oxygen Delivery Method Room Air 05/07/25 08:28 BMI result Body Mass Index 30.4 Tobacco/Smoking Status: Tobacco use Status Tobacco use date assessed 01/29/25 05/07/25 07:46 Patient Tobacco Use Status Never used Tobacco 05/07/25 07:46 e-Cigarette/Vaping Use Never Used 05/07/25 07:46 Thrive Assessment: Date of Thrive Assessment Date Thrive assessed 01/29/25 05/07/25 07:46 Const Other: General: Alert and oriented, Well nourished, No acute distress. Eye: Pupils are equal, round and reactive to light, Intact accommodation, Extraocular movements are intact, Normal conjunctiva, Vision unchanged. HENT: Normocephalic, Atraumatic, Tympanic membranes are clear, Normal hearing, Oral mucosa is moist, No pharyngeal erythema, Ear canals patent. Respiratory: Lungs CTA bilaterally, No wheeze, Respirations are non-labored. Cardiovascular: Regular rate, Regular rhythm, S1 auscultated, S2 auscultated, No murmur, Good pulses equal in all extremities, Normal peripheral perfusion, No edema. Gastrointestinal: Soft, Non-tender, Non-distended, Normal bowel sounds, No organomegaly. Musculoskeletal: Normal range of motion, Normal strength, No tenderness, No swelling, No deformity, Normal gait. Integumentary: Warm, Dry, [place], Intact. Neurologic: Alert, Oriented, Normal sensory, Normal motor function, No focal defects, Cranial Nerves II-XII are grossly intact, Normal deep tendon reflexes. Psychiatric: Cooperative, Appropriate mood & affect, Normal judgment. Coding Level of Care Code Est Pt Level 4 (98871) Complex EM visit Add On G2211 Diagnoses CAD (coronary artery disease) I25.10 Essential hypertension I10 Other hyperlipidemia E78.49 Hyperlipidemia type: other hyperlipidemia Other specified hypothyroidism E03.8 Hypothyroidism type: other Elevated liver enzymes R74.8 Assessment & Plan Assessment & Plan (1) CAD (coronary artery disease): Comment: - Continue atorvastatin, aspirin, isosorbide mononitrate, and Brilinta - Consult with credit risk analytics manager about Brilinta cessation Code(s): I25.10 - Atherosclerotic heart disease of craig coronary artery without angina pectoris Category: Medical (2) Essential hypertension: Comment: Continue isosorbide mononitrate 30 mg daily. Pressure is well controlled on medication Code(s): I10 - Essential (primary) hypertension Category: Medical (3) Hyperlipidemia: Comment: Most recent lipid panel reviewed with LDL slightly elevated to over 100. Advised patient to continue atorvastatin 80 mg daily and be adherent to dietary changes Code(s): E78.5 - Hyperlipidemia, unspecified Category: Medical Qualifiers: Hyperlipidemia type: other hyperlipidemia Qualified Code(s): E78.49 - Other hyperlipidemia (4) Hypothyroidism: Comment: - Continue with levothyroxine 75 mcg. Thyroid function tests to be re-evaluated today. Code(s): E03.9 - Hypothyroidism, unspecified Category: Medical Qualifiers: Hypothyroidism type: other Qualified Code(s): E03.8 - Other specified hypothyroidism (5) Elevated liver enzymes: Comment: - Monitor liver enzyme levels. Order hepatitis panel to rule out underlying causes. - Ultrasound from March reviewed demonstrating hepatic steatosis, anticipate improvement with continued weight loss - Encourage continued weight loss to potentially improve liver condition. Code(s): R74.8 - Abnormal levels of other serum enzymes Category: Medical Plan: Health maintenance: - Weight management and healthy dieting for cardiovascular and liver health - Monitor liver function and thyroid function tests Patient was informed and verbally consented to the use of an ambient scribe for clinic note documentation during this visit. Plan During the visit, I reviewed the patient's management plan for coronary artery disease, hypothyroidism, and nonalcoholic fatty liver disease. Recommendations included maintaining the current medication regimen and ordering necessary lab tests to monitor thyroid and liver health. I emphasized the importance of continuing lifestyle changes to aid their overall health improvement, particularly regarding weight loss efforts and its potential impact on fatty liver disease. Education was provided on medication interactions, and we discussed addressing Brilinta continuation with a credit risk analytics manager. Follow-up care was arranged to ensure ongoing monitoring. Orders: Orders Comprehensive Met. Panel Today R74.8 - Abnormal levels of other serum enzymes TSH reflex Free T4 Today E03.9 - Hypothyroidism, unspecified Hepatitis A,B,C Profile Today R74.8 - Abnormal levels of other serum enzymes Patient Instructions: - Continue and adhere to prescribed medications - Discuss stopping Brilinta with Dr. Hernandez, the credit risk analytics manager - Follow through with liver and thyroid function tests - Maintain current healthy eating and exercise programs to maximize weight loss - Schedule a follow-up visit in four months or earlier if symptoms worsen
[2025-05-07 08:28] VITALS: BP 126/82; PULSE 89; RESP 16; TEMP 36.4; O2SAT 97; BMI 30.4
--- OUTSIDE RECORDS SUMMARY | 2025-05-07 08:54 | XMS_ITS | Encounter Summary ---
Author Organization [facility] Address [address] [place] [address] Phone Care Team Providers Care Software Packager Name Role Phone Seymour Mitchell MD Primary Care Provider Maynor Hwang MD Primary Care Provid er Encounter Details Date Type Department Care Team (Late st Contact Info) Description 06/16/2020 Procedure Pass [facility], [facility] [address] [place] [address] Social History Tobacco Use Types Packs/Day Years [...] on file documented as of this encounter Visit Diagnoses Not on filedocumented in this encounter Additional Health Concerns Infection Onset Date Last Indicated Resolved Time CoV-Risk Comment:Per Ambulatory Triage Form 08/15/2021 08/15/202108/25 1:24 AM EST documented as of this encounter Care Teams Software Packager Relationship Specialty Start Date End Date Seymour Mitchell MD [address] [place] [address] [place] [address] PCP - General 08/10/17 12/25/24 Maynor Hwang MD [address] [place] [address] PCP - General Internal Medicine 12/26/24 documented as of this encounter Additional Source Comments The information contained in this document represents components of the legal health record. It is not the complete legal health record.[facility]
--- OUTSIDE RECORDS SUMMARY | 2025-05-07 08:54 | XMS_ITS | Clinical Summary ---
Author Organization [facility] Address [address] [place] [address] Phone Care Team Providers Care Brush Cutter Name Role Phone Maynor Hwang MD Primary Care Provid er Allergies No known active allergies Medications levothyroxine (SYNTHROID) 75 MCG tablet Orally Active ferrous sulfate 325 mg (65 mg rosebud iron) tablet Take 325 mg by mouth daily with breakfast. Active ibuprofen (ADVIL,MOTRIN) 600 MG tablet Take 1 tablet (600 mg total) by mouth every 6 (six) hours. 30 tablet 1 Active oxyCODONE 5 MG immediate release tablet Take 1 tablet (5 mg total) by mouth every 6 (six) hours as needed. Partial fill ok 10 tablet 3 Active Additional Information Patient not taking.Reported on 01/18/[address] 0.4 mg under the tongue. 3 Active metoprolol succinate (TOPROL-XL) 25 MG 24 hr tablet Take 25 mg by mouth. 3 Active isosorbide mononitrate (IMDUR) 30 MG 24 hr tablet Take 30 mg by mouth daily. Active atorvastatin (LIPITOR) 40 MG tablet Take 40 mg by mouth daily. Active aspirin 81 MG EC tablet Take 81 mg by mouth. 3 Active BRILINTA 90 mg Tab Take 90 mg by mouth 2 (two) times a day. Active FLUoxetine (PROZAC) 40 MG capsule Take by mouth daily. Active fluticasone propionate (FLONASE) 50 mcg/actuation nasal spray 2 sprays by Nasal route daily. 16 g 04/28/202 4 Active Additional Information Patient not taking.Reported on 01/18/2025 guaiFENesin-code ine (ROBITUSSIN AC) 100-10 mg/5 mL liquid TAKE 10 ML BY MOUTH EVERY 4 TO 6 HOURS NEEDED FOR COUGH 4 Active BREO ELLIPTA 200-25 mcg/dose inhaler Inhale 1 puff into the lungs daily. 4 Active atorvastatin (LIPITOR) 80 MG tablet Take 1 tablet by mouth every morning. 5 Active Active Problems Problem Noted Date Diagnosed Date Perimenopausal 06/16/2020 Overview (06/16/2020): Having some night sweats Resolved Problems Problem Noted Date Diagnosed Date Resolved Date Menorrhagia, premenopausal 11/18/2020 0 12/15/2020 Fibroid of cervix 11/11/2020 12/15/2020 Fibroids, submucosal 11/11/2020 021 Menorrhagia with irregular cycle 11/11/2020 12/15/2020 Encounter for preoperative s creening laboratory testing for COVID-19 virus Family History Medical History Relation Comments CV disease Father Thyroid disease Father CV disease Maternal Grandmother Hypertension Mother Breast cancer Neg Hx Relation Status Comments Father Alive Maternal Grandmother Mother Alive Social History Tobacco Use Types Packs/Day Years [...] Orientation Straight 06/27/2023 4: 16 PM EST Last Filed Vital Signs Vital Sign Reading Time Taken Comments Blood Pressure 138/88 01/18/2025 1:12 PM EDT Pulse 100 01/18/2025 1:12 PM EDT Temperature 37 C (98.6 F) 01/18/2025 1:12 PM EDT Respiratory Rate 16 01/18/2025 1:12 PM EDT Oxygen Saturation 96% 01/18/2025 1:12 PM EDT Inhaled Oxygen Concentration - - Weight 99.8 kg (220 lb) 10/01/2024 8:26 AM EST Height 176.5 cm (5' 9.5 ) 10/01/2024 8:26 AM EST Body Mass Index 32.02 10/01/2024 8:26 AM EST Plan of Treatment Health Maintenance Due Date Last Done Comments Adult Td,Tdap Booster 1970 LIPID PANEL 1970 DEPRESSION SCREENING 1981 HEPATITIS C SCREENING 10/25/1987 HIV ONE-TIME SCREENING (18-65 YEARS) 10/25/1987 COLOGUARD 2014 COLONOSCOPY 2014 COLORECTAL CANCER SCREENING 2014 FIT TEST 2014 FOBT 2014 SIGMOIDOSCOPY 2014 VIRTUAL COLONOSCOPY 2014 PNEUMOCOCCAL VACCINES (50+ years) (1 of 1 - PCV) 10/25/2019 ZOSTER VACCINES (1 of 2) 10/25/2019 TSH LEVEL 10/27/2021 10/27/2020 MAMMOGRAM 09/09/2022 09/09/2020, 05/0 09/2012, 02/04/2010 INFLUENZA VACCINE (#1) 2025 COVID-19 VACCINE (3 - 2025-26 season) 2025 02/13/2021, 01/23/2021 PAP SMEAR 06/16/2025 06/16/2020, 06/07, 12/02/2015, Additional history exists SCREENING FOR DIABETES 06/27/2026 06/27/2023 SMOKING STATUS SCREENING (Once After 26 Yrs) Completed 01/18/2025 HEPATITIS A VACCINES Aged Out No long er eligible based on patient's age to complete this topic HIB VACCINES Aged Out No longer eligi ble based on patient's age to complete this topic MENINGOCOCCAL VACCINES (ACWY) Aged Out No longer eligible based on patient's age to complete this topic MENINGOCOCCAL VACCINES (B) Aged Out N o longer eligible based on patient's age to complete this topic Medical Devices Not on file Procedures Procedure Name Priority Date/Time Associated Diagnosis Comments TSH WITH REFLEX Routine 10/27/2020 2:37 PM EDT Menorrhagia with irregular cycle BI MAMMOGRAM SCREENING WITH TOMOSYNTHESIS WITH CAD (BILATERAL) Routine 09/09/2020 3:47 PM EST Encounter for screening mammogram for malignant neoplasm of breast PAP TEST Routine 06/16/2020 12:00 AM EST from Last 3 Months or Most Recently Relevant to Health Maintenance Results * TSH with reflex (10/27/2020 2:37 PM EDT) TSH 3.22 0.27 - 4.20 uIU/mL [facility] Blood 10/27/2020 2:37 PM EDT 10/27/2020 2:43 PM EDT us Mio Severino MD LAB BLOOD ORDERABLES Final Resul t [facility] [address] [place] [address] * BI MAMMOGRAM SCREENING WITH TOMOSYNTHESIS WITH CAD (BILATERAL) (09/09/2020 3:47 PM EST) Anatomical Region Laterality Modality Breast Left, Breast Right, Breast Bilateral Bila teral Mammography 09/09/2020 6:03 PM EST Impressions 09/09/2020 6:10 PM EST No mammographic signs of malignancy. Annual screening is recommended. BI-RADS CATEGORY: 2 - Benign finding. DENSITY: There are scattered fibroglandular densities. Narrative 09/09/2020 6:10 PM EST Bilateral mammography is performed in conjunction with computed aided detection. 3-D tomography along with 2-D C view imaging was also performed. Comparison made to previous outside mammograms dated as far back as 02/04/2010 and as recent as 12/06/2012. No suspicious masses, areas of architectural distortion or suspicious microcalcifications. Focal asymmetry and adjacent benign-appearing calcifications in the central right breast are stable. Procedure Note Russ Padilla MD - 09/09/2020 Bilateral mammography is performed in conjunction with computed aideddetection. 3-D tomography along with 2-D C view imaging was alsoperformed. Comparison made to previous outside mammograms dated as farback as 02/04/2010 and as recent as 12/06/2012. No suspicious masses, areas of architectural distortion or suspiciousmicrocalcifications. Focal asymmetry and adjacent benign-appearingcalcifications in the central right breast are stable. IMPRESSION: No mammographic signs of malignancy. Annual screening is recommended. BI-RADS CATEGORY: 2 - Benign finding. DENSITY: There are scattered fibroglandular densities. us Serena Ramos MD IMG MG EXAMS Final Resu lt * Pap Smear (06/16/2020 12:00 AM EST) 06/16/2020 06/17/2020 9:1 0 AM EST Narrative SEE NARRATIVE - 06/19/2020 5:02 PM EST [address] [address] Process Stripper: Dee Peck MD CHILDHOOD DEVELOPMENT TEACHER Cytology Report FINAL DIAGNOSIS A. PAP SMEAR (SUREPATH) CE: SPECIMEN ADEQUACY: Satisfactory for evaluation; transformation zone present. INTERPRETATION: NEGATIVE FOR INTRAEPITHELIAL LESION OR MALIGNANCY. Electronically Signed Out By: ROSA Alex(ASCP) The Pap test is a screening test primarily for squamous cancers and precursors and has associated false-negative and false-positive results. New technologies such as liquid-based preparations may decrease but will not eliminate all false-negative results. Regular sampling and follow-up of unexplained clinical signs and symptoms are recommended to minimize false negative results. PROCEDURES/ADDENDA HPV Testing (Requested) Ordered Date: 06/17/2020 A. PAP SMEAR (SUREPATH) CE: Human Papilloma Virus Test Negative for high-risk human papillomavirus types 16, 18, 45 and the Other high risk probe set (Includes 31, 33, 35, 39, 51, 52, 56, 58, 59, 66, 68) by [employer] Onclarity HR-HPV analysis. Clinical correlation is advised. This HPV test was performed at [facility], [address] [place] [address]. This test has been FDA approved for SurePath cervical cytology specimens. The accuracy and precision of this test for all other specimen sources has been verified in the Cytopathology Laboratory of the [facility] and has not been cleared or approved by the U.S. Food and Drug Administration. Clinical correlation is advised. CLINICAL HISTORY Date of Last Menstrual Period: 05-25-2020 Other Clinical Conditions: Screening Pap SPECIMEN SOURCE A: PAP SMEAR (SUREPATH) CE Patient Name: MARGAUX CAMPA : 1970 (Age: 49) Sex: F Institution: [facility] Location: [facility] Date of Collection: 06/16/2020 Date of Reported: 06/19/2020 10:57 Results to: Serena Ramos MD us Serena Ramos MD CYTOLOGY ORDERABLES Edited Result - Final SEE NARRATIVE from Last 3 Months or Most Recently Relevant to Health Maintenance [facility] Advance Directives For more information, please contact: [phone] (9AM - 5PM [facility], Monday-Monday) Documents on File Type Date Recorded Patient Raiser Helper Expl anation Healthcare Proxy 11/23/2020 5:06 PM * Full Code (Latest Code Status on File) Date Activated Date Inactivated Comments 11/18/2020 3:45 PM Question Answer Comments Code Status Confirmed With: Patient * Full Code Date Activated Date Inactivated Comments 11/18/2020 8:21 AM 11/18/2020 3:45 PM Question Answer Comments Code Status Confirmed With: Patient Care Teams Brush Cutter Relationship Specialty Start Date End Date Maynor Hwang MD [address] [place] [address] PCP - General Internal Medicine 12/26/24 Additional Source Comments The information contained in this document represents components of the legal health record. It is not the complete legal health record.[facility]
--- OUTSIDE RECORDS SUMMARY | 2025-05-07 08:54 | XMS_ITS | Encounter Summary ---
Author Organization [facility] Address [address] [place] [address] Phone Care Team Providers Care Regional Recruiter Name Role Phone Seymour Mitchell MD Primary Care Provider Maynor Hwang MD Primary Care Provid er Encounter Details Date Type Department Care Team (Late st Contact Info) Description 07/06/2020 Ancillary Orders [facility],Outside Imaging [address] [place] [address] System, Provider Not In, PhD [address] [address] Social History Tobacco Use Types Packs/Day Years [...] on file documented as of this encounter Results * Mammogram Outside (No [...] documented as of this encounter Care Teams Regional Recruiter Relationship Specialty Start Date End Date Seymour Mitchell MD [address] [place] [address] [place] [address] PCP - General 08/10/17 12/25/24 Maynor Hwang MD [address] [place] [address] PCP - General Internal Medicine 12/26/24 documented as of this encounter Additional Source Comments The information contained in this document represents components of the legal health record. It is not the complete legal health record.[facility]
--- OUTSIDE RECORDS SUMMARY | 2025-05-07 08:54 | XMS_ITS | Encounter Summary ---
Author Organization [facility] Address [address] [place] [address] Phone Care Team Providers Care Chalk Molding Machine Operator Name Role Phone Seymour Mitchell MD Primary Care Provider Maynor Hwang MD Primary Care Provid er Encounter Details Date Type Department Care Team (Late st Contact Info) Description 07/10/2020 Ancillary Orders [facility],Outside Imaging [address] [place] [address] System, Provider Not In, PhD Partners [address] [address] Social History Tobacco Use Types Packs/Day Years [...] documented as of this encounter Care Teams Chalk Molding Machine Operator Relationship Specialty Start Date End Date Seymour Mitchell MD [address] [place] [address] [place] [address] PCP - General 08/10/17 12/25/24 Maynor Hwang MD [address] [place] [id number] PCP - General Internal Medicine 12/26/24 documented as of this encounter Additional Source Comments The information contained in this document represents components of the legal health record. It is not the complete legal health record.[facility]
--- OUTSIDE RECORDS SUMMARY | 2025-05-07 08:54 | XMS_ITS | Encounter Summary ---
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 Wish to be (Past 1 Month) No 021 3:49 PM EDT Lynette James RN 2. Non-Specific Active Suici oscar Thoughts (Past 1 Month) No 11/18/2020 3:49 PM EDT Enoc James RN 6. Suicidal Behavior (Lifetime) No 1 3:49 PM EDT Lynette James RN documented as of this encounter Plan of Treatment Not on file documented as of this encounter Visit Diagnoses Not on filedocumented in this encounter Additional Health Concerns Infection Onset Date Last Indicated Resolved Time CoV-Risk Comment:Per Ambulatory Triage Form 08/15/2021 08/15/202108/25 1:24 AM EST documented as of this encounter Care Teams Hot Iron Worker Relationship Specialty Start Date End Date Seymour Mitchell MD [address] [place] [id number] PCP - General 08/10/17 12/25/24 Maynor Hwang MD [address] [place] [phone] PCP - General Internal Medicine 12/26/24 documented as of this encounter Additional Source Comments The information contained in this document represents components of the legal health record. It is not the complete legal health record.[facility]
== END 2025-05-07 08:52 | disposition home or self-care (01) ==
PROVIDERS: PCP Student in an Organized Health Care Education/Training Program; Visit Provider Student in an Organized Health Care Education/Training Program
DX: I25.10 Atherosclerotic heart disease of native coronary artery without angina pectoris (principal); I10 Essential (primary) hypertension; E78.49 Other hyperlipidemia; E03.8 Other specified hypothyroidism; R74.8 Abnormal levels of other serum enzymes

== ENCOUNTER 2025-05-07 08:49 | Outpatient (REF) | payer OTHER, SELFPAY ==
[2025-05-07 12:04] LABS: Alanine Aminotransferase 49 U/L (0-31); Albumin Level 4.8 g/dL (3.5-5.0); Anion Gap 13 (12-20); Aspartate Amino Transferase 31 U/L (5-31); Blood Urea Nitrogen 12 mg/dL (9-16); Calcium 9.8 mg/dL (8.4-10.2); Carbon Dioxide 24 mmol/L (22-29); Chloride 110 mmol/L (96-108); Estimated Glomerular Filt Rate > 60; Potassium 4.3 mmol/L (3.3-5.1); Sodium 143 mmol/L (135-145); Total Protein 7.8 g/dL (6.5-8.0)
[2025-05-07 12:10] LABS: HBS Num1 9.32 mIU/mL (0-7.99); HBc Num1 0.10 S/CO (0.00-0.79); HBsAGNum1 0.32 S/CO (0.00-0.99); Hepatitis A Antibody IgM 0.21 Index (0-0.79); Hepatitis B Surface Antigen Negative (Negative); ~HepC Num1 0.09 S/CO (0.00-0.79); ~Hepatitis A Antibody IgM Nonreactive (Nonreactive); ~Hepatitis C Antibody Nonreactive (Nonreactive)
[2025-05-07 12:12] LABS: Alkaline Phosphatase 128 U/L (39-117)
[2025-05-07 13:26] LABS: HBS Num2 10.02 mIU/mL (0-7.99); HBS Num3 9.47 mIU/mL (0-7.99); ~Hepatitis B Surface Antibody GRAYZONE (Nonreactive)
== END 2025-05-07 08:50 | disposition home or self-care (01) ==
LOC: HO.10HDL 08:49
PROVIDERS: Visit Provider Student in an Organized Health Care Education/Training Program
DX: R74.8 Abnormal levels of other serum enzymes (principal); E03.9 Hypothyroidism, unspecified; I25.10 Atherosclerotic heart disease of native coronary artery without angina pectoris; E78.5 Hyperlipidemia, unspecified; K76.0 Fatty (change of) liver, not elsewhere classified; I10 Essential (primary) hypertension; E78.49 Other hyperlipidemia; E03.8 Other specified hypothyroidism; Z79.899 Other long term (current) drug therapy
CPT/HCPCS: 36415; 80053; 84443; 86704; 86706; 86709; 86803; 87340